=== PATIENT | male | born 1940 | race Caucasian/White ===

== ENCOUNTER 2017-01-27 21:28 | Emergency (ER) | payer OTHER ==
[~2017-01-27] VITALS: Ht 165.1 cm; Wt 85.0 kg
[~2017-01-27 21:28] MED LIST: ACET-1256 PO; ASCO10003 PO; ASPCH81 PO; ATOR-24 PO; CNT PO; FINA5TAB PO; FLUT0.15; NF34 TOP; ONDA4TAB7 SL; TERA1CAP63 PO
[2017-01-27 21:33] VITALS: TEMP 36.8; Ht 165.1 cm; Wt 85.0 kg
[2017-01-27] MEDS ORDERED: ONDANSETRON INJ 2 MG/ML 2 ML VIAL IV STA (21:46)
--- NOTE | 2017-01-27 21:49 | EMERGENCY ROOM VISIT NOTE ---
History Report prepared by Angélica: Ger Lucio Under the Supervision of: Dr. Burton Dillard D.O. First contact with patient: 21:40 Chief Complaint: DIZZY Stated Complaint: DIZZINESS,VOMITING,NAUSEA History of Present Illness The patient is a 76 year old male who presents to the Emergency Room with complaints of intermittent dizziness for the past week and a half. The patient has also been feeling nauseous. His symptoms worsened yesterday. The patient has also had intermittent vomiting, which does relieve his symptoms. The dizziness is described as a room-spinning sensation, however he has had minimal relief with Meclizine. The patient denies any headaches, chest pain, or shortness of breath. He has hearing impairment at baseline. The patient notes that he was bitten by a tick two weeks ago. He went to urgent care and was started on Doxycycline which he has taken intermittently. The patient saw his PCP four days ago and was started on Meclizine. The patient notes that he has a history of CLL. Source of History: patient Onset: 1.5 weeks ago Position: other (global) Quality: other (dizziness) Timing: intermittent Modifying Factors (Relieving): other (vomiting) Associated Symptoms: + nausea, + vomiting, No SOB, No chest pain, No headache Review of Systems See HPI for pertinent positives and negatives. A total of ten systems were reviewed and were otherwise negative. Past Medical & Surgical Medical Problems: (1) CLL (chronic lymphocytic leukemia) (2) Heart valve stenosis (3) Loss of hearing (4) Pneumonia (5) Vertigo Surgical Problems: (1) History of appendectomy Family History Cancer Gallbladder disease Heart disease Lung disease Social History Smoking Status: Former Smoker Alcohol Use: none Drug Use: none Marital Status: Housing Status: lives with significant other Occupation Status: retired Current/Historical Medications Scheduled Ascorbic Acid (Vitamin C), 1,000 MG PO DAILY Aspirin (Aspirin Ec), 81 MG PO QPM Atorvastatin (Lipitor), 40 MG PO QPM Azelastine Hcl (Astepro), 2 SPRY DONTAE HS Clobetasol Propionate (Clobetasol Propionate), 1 APPLN TOP BID Finasteride (Proscar), 5 MG PO QAM Fluticasone Propionate (Nasal) (Flonase Allergy Relief), 100 MCG NA DAILY Multiple Vitamins W/ Minerals (Centrum Silver Adult 50+), 1 TAB PO DAILY Terazosin Hcl (Hytrin), 10 MG PO QPM Scheduled PRN Acetaminophen/Diphenhydramine (Tylenol Pm), 1 TAB PO HS PRN for Pain Albuterol Sulfate (Proventil Hfa), 2 PUFFS INH QID PRN for Shortness of Breath Ketoconazole (Topical) (Ketoconazole), 1 APPLN TOP 2XWK PRN for RASH Saline (Saline Nasal [place]), 1 SPRAY DONTAE BID PRN for NASAL DRYNESS Allergies Coded Allergies: Niacin (Unverified Allergy, Unknown, RASH/FLUSHING, 01/27/17) Pseudoephedrine (Verified Adverse Reaction, Unknown, URINARY RETENTION, 11/03) Physical Exam Vital Signs Date Time Temp Pulse Resp B/P Pulse Ox O2 Delivery O2 Flow Rate FiO2 01/27/17 22:52 62 18 131/63 95 Room Air 01/27/17 21:58 58 125/70 61 125/66 01/27/17 21:52 56 01/27/17 21:33 36.8 60 20 135/71 96 Room Air Physical Exam GENERAL: Awake, alert, well-appearing, in no distress HENT: Normocephalic, atraumatic. Oropharynx unremarkable. EYES: Normal conjunctiva. Sclera non-icteric. NECK: Supple. No nuchal rigidity. FROM. No JVD. RESPIRATORY: Clear to auscultation. CARDIAC: Regular rate, normal rhythm. Extremities warm and well perfused. Pulses equal. ABDOMEN: Soft, non-distended. No tenderness to palpation. No rebound or guarding. No masses. RECTAL: Deferred. MUSCULOSKELETAL: Chest examination reveals no tenderness. The back is symmetrical on inspection without obvious abnormality. There is no CVA tenderness to palpation. No joint edema. LOWER EXTREMITIES: Calves are equal size bilaterally and non-tender. No edema. No discoloration. NEURO: Normal sensorium. No sensory or motor deficits noted. SKIN: There is a punctate lesion with erythema that is less than dime size in the right groin area. Medical Decision & Procedures ER Provider Diagnostic Interpretation: Radiology results as stated below per my review and radiologist interpretation CT SCAN OF THE BRAIN WITHOUT IV CONTRAST CLINICAL HISTORY: Dizziness. COMPARISON STUDY: CT of the brain dated 07/24/2015. TECHNIQUE: Unenhanced axial CT scan of the brain is performed from the vertex to the skull base. CT DOSE: 614.27 mGy.cm FINDINGS: Brain parenchyma: There are age-related involutional changes noting mild subcortical and periventricular microangiopathic change. There is no hemorrhage, mass effect, or evidence of acute territorial ischemia by CT criteria. Caceres-white matter is preserved. No extra-axial fluid collection is seen. Ventricles, sulci, cisterns: Prominent secondary to involutional change. Intracranial vasculature: There is atherosclerotic calcification of the cavernous carotid arteries. Calvarium: Unremarkable. Sinuses and mastoids: Trace mucosal thickening is seen within the maxillary antra and ethmoid sinuses. The remaining paranasal sinuses are clear. The mastoid air cells are well pneumatized. Orbits: The bony orbits are grossly intact. IMPRESSION: There is no hemorrhage, mass effect, or evidence of acute territorial ischemia by CT criteria. Electronically signed by: Narciso Delgadillo M.D. 01/27/2017 10:16 PM Dictated Date/Time: 01/27/2017 10:14 PM Laboratory Results 01/27/17 21:50 Red Blood Count 5.09, Mean Corpuscular Volume 82.9, Mean Corpuscular Hemoglobin 28.9, Mean Corpuscular Hemoglobin Concent 34.8, Mean Platelet Volume 9.0 01/27/17 21:50 Test 01/27/17 21:50 01/27/17 21:52 01/27/17 22:55 White Blood Count 32.01 K/uL (4.8-10.8) Red Blood Count 5.09 M/uL (4.7-6.1) Hemoglobin 14.7 g/dL (14.0-18.0) Hematocrit 42.2 % (42-52) Mean Corpuscular Volume 82.9 fL (80-100) Mean Corpuscular Hemoglobin 28.9 pg (25-34) Mean Corpuscular Hemoglobin Concent 34.8 g/dl (32-36) Platelet Count 135 K/uL (130-400) Mean Platelet Volume 9.0 fL (7.4-10.4) RDW Standard Deviation 41.0 fL (36.4-46.3) RDW Coefficient of Variation 13.5 % (11.5-14.5) Neutrophils % (Manual) 19.3 % Lymphocytes % (Manual) 56.9 % Variant Lymphocytes % (manual) 20.2 % Eosinophils % (Manual) 1.8 % Basophils % (Manual) 0.9 % (0-2) Myelocytes % 0.9 % Neutrophils # (Manual) 6.18 K/uL (1.4-6.5) Total Absolute Neutrophils 6.18 K/uL (1.4-6.5) Lymphocytes # (Manual) 18.21 K/uL (1.2-3.4) Absolute Variant Lymphocytes 6.47 K/uL Total Absolute Lymphocytes 24.68 K/uL (1.2-3.4) Eosinophils # (Manual) 0.58 K/uL (0-0.5) Basophils # (Manual) 0.29 K/uL (0-0.2) Myelocytes # 0.29 K/uL (0-0) Smudge Cells PRESENT Anion Gap 10.0 mmol/L (3-11) Est Creatinine Clear Calc Drug Dose 66.4 ml/min Estimated GFR () 92.0 Estimated GFR (Non- 79.4 BUN/Creatinine Ratio 11.4 (10-20) Calcium Level 8.8 mg/dl (8.5-10.1) Total Bilirubin 0.9 mg/dl (0.2-1) Direct Bilirubin 0.2 mg/dl (0-0.2) Aspartate Amino Transf (AST/SGOT) 15 U/L (15-37) Alanine Aminotransferase (ALT/SGPT) 24 U/L (12-78) Alkaline Phosphatase 92 U/L (45-117) Total Protein 7.0 gm/dl (6.4-8.2) Albumin 3.7 gm/dl (3.4-5.0) Thyroid Stimulating Hormone (TSH) 2.030 uIu/ml (0.300-4.500) Bedside Glucose 100 mg/dl (70-99) Bedside Troponin I 0.000 ng/ml (0-0.045) Urine Color YELLOW Urine Appearance CLEAR (CLEAR) Urine pH 5.0 (4.5-7.5) Urine Specific [place] 1.014 (1.000-1.030) Urine Protein NEG (NEG) Urine Glucose (UA) NEG (NEG) Urine Ketones NEG (NEG) Urine Occult Blood NEG (NEG) Urine Nitrite NEG (NEG) Urine Bilirubin NEG (NEG) Urine Urobilinogen NEG (NEG) Urine Leukocyte Esterase NEG (NEG) Laboratory results reviewed by me Medications Administered Medications (Trade) Dose Ordered Sig/Tyrel Route Start Time Stop Time Status Last Admin Dose Admin Ondansetron HCl (Zofran Inj) 4 mg NOW STAT IV 01/27/17 21:46 01/27/17 21:50 DC 01/27/17 21:56 4 MG ECG Indication: other (dizziness) Rate (beats per minute): 56 Rhythm: sinus bradycardia Findings: RBBB, no acute ischemic change, left axis deviation, other (left anterior hemiblock) ED Course 0945: The patient was evaluated in room C1b. A complete history and physical exam was performed. 2145: Zofran 4 mg IV. 2242: Checked in with the patient. Discussed his previous tick bite and history of CLL. 2309: Reassessed the patient. Discussed the discharge instructions with him. He verbalized understanding and agreements of the treatment plan. The patient is ready for discharge. Medical Decision Etiologies such as benign positional vertigo, tumor, infection, hypoglycemia, electrolyte abnormalities, cardiac sources, intracerebral event, toxicologic, neurologic, as well as others were entertained. Patient has a history of CLL, I expect the white blood cell count is elevated to the CLL. Reevaluated dissed tick bite region in the right groin it does not appear to be infected at this time. There is still a concern for tick borne illness. However this patient has a history of Mnire's disease and vertigo was on meclizine. Patient's lab work except for an elevated white blood cell count is normal his CAT scan is negative. Reassessment of the patient at 2318 the patient is resting in no distress nonfocal like to go home. I discussed the workup the patient patient's family at bedside. Impression Primary Impression: Dizziness Scribe Attestation The scribe's documentation has been prepared under my direction and personally reviewed by me in its entirety. I confirm that the note above accurately reflects all work, treatment, procedures, and medical decision making performed by me. Departure Information Dispostion Home / Self-Care Referrals Divya Bernabe M.D. (PCP) Forms HOME CARE DOCUMENTATION FORM, IMPORTANT VISIT INFORMATION Patient Instructions ED Dizziness Marlena PUGA [facility]
[2017-01-27] MEDS ORDERED: MULT-845 PO (22:09)
[2017-01-27] MEDS ORDERED: ASPI81TA28 PO (22:09)
[2017-01-27] MEDS ORDERED: DIPH-437 PO (22:09)
[2017-01-27] MEDS ORDERED: SALI1SPR3 NAE (22:09)
[2017-01-27] MEDS ORDERED: ALBUAER INH (22:09)
[2017-01-27] MEDS ORDERED: KETO2SHA TOP (22:09)
[2017-01-27] MEDS ORDERED: AZEL0.15 NAE (22:09)
[2017-01-27 22:16] LABS: HEMATOCRIT 42.2 % (42-52); MEAN CELL VOLUME 82.9 fL (80-100); MEAN CORPUSCULAR HEMOGLOBIN 28.9 pg (25-34); MEAN CORPUSCULAR HGB CONC 34.8 g/dl (32-36); PLATELET COUNT 135 K/uL (130-400); RED BLOOD COUNT 5.09 M/uL (4.7-6.1); WHITE BLOOD COUNT 32.01 K/uL (4.8-10.8)
--- NOTE | 2017-01-27 22:17 | DIAGNOSTIC IMAGING REPORT ---
CT SCAN OF THE BRAIN WITHOUT IV CONTRAST CLINICAL HISTORY: Dizziness. COMPARISON STUDY: CT of the brain dated 07/24/2015. TECHNIQUE: Unenhanced axial CT scan of the brain is performed from the vertex to the skull base. CT DOSE: 614.27 mGy.cm FINDINGS: Brain parenchyma: There are age-related involutional changes noting mild subcortical and periventricular microangiopathic change. There is no hemorrhage, mass effect, or evidence of acute territorial ischemia by CT criteria. Caceres-white matter is preserved. No extra-axial fluid collection is seen. Ventricles, sulci, cisterns: Prominent secondary to involutional change. Intracranial vasculature: There is atherosclerotic calcification of the cavernous carotid arteries. Calvarium: Unremarkable. Sinuses and mastoids: Trace mucosal thickening is seen within the maxillary antra and ethmoid sinuses. The remaining paranasal sinuses are clear. The mastoid air cells are well pneumatized. Orbits: The bony orbits are grossly intact. IMPRESSION: There is no hemorrhage, mass effect, or evidence of acute territorial ischemia by CT criteria. Electronically signed by: Narciso Delgadillo M.D. 01/27/2017 10:16 PM Dictated Date/Time: 01/27/2017 10:14 PM
[2017-01-27 22:25] LABS: BUN/CREATININE RATIO 11.4 (10-20); CALCIUM 8.8 mg/dl (8.5-10.1); CREATININE 0.92 mg/dl (0.60-1.40); POTASSIUM 4.2 mmol/L (3.5-5.1)
[2017-01-27 22:36] LABS: THYROID STIMULATING HORMONE 2.03 uIu/ml (0.300-4.500)
[2017-01-27 22:59] LABS: BASO ABS # 0.29 K/uL (0-0.2); BASOPHIL % 0.9 % (0-2); EOSINOPHIL % 1.8 %; LYMPH ABS # 18.21 K/uL (1.2-3.4); LYMPHOCYTE % 56.9 %; MYELOCYTE % 0.9 %; NEUTROPHILS % 19.3 %; SMUDGE CELLS PRESENT; VARIANT LYM ABS # 6.47 K/uL; VARIANT LYMPHOCYTE % 20.2 %
[2017-01-27 23:05] LABS: URINE APPEARANCE CLEAR (CLEAR); URINE BILIRUBIN NEG (NEG); URINE COLOR YELLOW; URINE NITRITE NEG (NEG); URINE SPECIFIC GRAVITY 1.014 (1.000-1.030); UROBILINOGEN NEG (NEG)
[2017-01-27 23:07] LABS: MANUAL MICROSCOPIC REQUIRED? NO; REVIEW REQ? NO
[2017-01-27] MEDS ORDERED: ONDA4TAB10 SL (23:34)
[2017-01-27 23:38] VITALS: BP 122/66; PULSE 66; O2SAT 94
[2017-01-28 20:03] LABS: COMPLETE YES
== END 2017-01-27 23:38 | disposition home or self-care (01) ==
LOC: C.EDB 21:30 → C.EDC 23:38
DX: R42 Dizziness and giddiness (principal); R11.2 Nausea with vomiting, unspecified; I45.10 Unspecified right bundle-branch block; Z79.82 Long term (current) use of aspirin; Z79.899 Other long term (current) drug therapy; Z85.6 Personal history of leukemia; Z87.01 Personal history of pneumonia (recurrent); Z87.891 Personal history of nicotine dependence; Z82.49 Family history of ischemic heart disease and other diseases of the circulatory system; Z83.6 Family history of other diseases of the respiratory system; Z83.79 Family history of other diseases of the digestive system

== ENCOUNTER 2019-12-14 07:27 | Inpatient (IN) ==
--- NOTE | 2019-12-02 16:09 | PAT Medication Instructions ---
Medication Instructions Date of Service December 02, 2019 Home Medications ascorbic acid (vitamin C) [Vitamin C] 500 mg PO QAM atorvastatin 20 mg PO PM diphenhydramine-acetaminophen [Tylenol PM Extra Strength] 1 tab PO HS PRN diphenhydramine-zinc acetate [Benadryl Itch Stopping] 1 applic TOPICAL QID PRN finasteride 5 mg PO QAM fluticasone furoate 50 mcg INHALATION UD ketoconazole 1 applic TOPICAL DAILY PRN [id number] acid-lutein [Centrum Silver] 1 tab PO QDL omeprazole 20 mg PO QAM terazosin 10 mg PO DAILY Continue as directed diphenhydramine-zinc acetate [Benadryl Itch Stopping] 1 applic TOPICAL QID PRN (if needed) STOP taking 24 hours before surgery ketoconazole 1 applic TOPICAL DAILY PRN DO NOT take the morning of surgery ascorbic acid (vitamin C) [Vitamin C] 500 mg PO QAM diphenhydramine-acetaminophen [Tylenol PM Extra Strength] 1 tab PO HS PRN [id number] acid-lutein [Centrum Silver] 1 tab PO QDL Take morning of surgery With a small sip of water, OTHERWISE NOTHING TO EAT OR DRINK AFTER MIDNIGHT: finasteride 5 mg PO QAM fluticasone furoate 50 mcg INHALATION UD omeprazole 20 mg PO QAM terazosin 10 mg PO DAILY Take evening before surgery atorvastatin 20 mg PO PM diphenhydramine-acetaminophen [Tylenol PM Extra Strength] 1 tab PO HS PRN (if needed) diphenhydramine-zinc acetate [Benadryl Itch Stopping] 1 applic TOPICAL QID PRN (if needed) fluticasone furoate 50 mcg INHALATION UD Other Notes If you have any questions please call us at [phone] or [phone] or [phone] or [phone]
--- NOTE | 2019-12-03 11:04 | Anesthesiology Consultation ---
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 WBC in the 70-90 range per chart view. "Continue to observe the patient clinically." - Cardiology: 03/09/20: "The patient's aortic valve stenosis is clinically stable. I recommend a repeat echocardiogram at a 1 year interval. In addition to the right bundle branch block pattern, he now has a bifascicular block pattern. He has no symptoms to suggest bradycardia. At this time I think we can just observe him regarding his asymptomatic conduction system disease." F/U one year recommended. Chart Review Chart Review: Acceptable Risk for Surgery and Patient seen in Pre Admission Testing Teaching & Discussion Pre-Anesthesia Teaching/Discussion Notes: Instructed NPO after midnight before surgery,except medications with 15 cc of water. Medication instructions provided according to the PAT guidelines. History Surgery Operation Date: 12/14/19 11:45 Proposed Procedures p L4-L5 Decompression and Fusion, Spinal Cord Monitoring - Jordy Prasad DO Height/Weight Height: 5 ft 5 in Weight: 81.9 kg Allergies Allergy/AdvReac Type Severity Reaction Status Date / Time niacin Allergy Unknown RASH/FLUSHI Unverified 12/01/19 08:06 NG pseudoephedrine AdvReac Unknown URINARY Verified 12/01/19 08:06 RETENTION Medications Home Medications Medication Instructions Recorded Confirmed Last Taken ascorbic acid (vitamin C) [Vitamin 500 mg PO QAM 12/01/19 12/01/19 Unknown C] atorvastatin 20 mg PO PM 12/01/19 12/01/19 Unknown diphenhydramine-acetaminophen 1 tab PO HS PRN 12/01/19 12/01/19 Unknown [Tylenol PM Extra Strength] diphenhydramine-zinc acetate 1 applic TOPICAL QID PRN 12/01/19 12/01/19 Unknown [Benadryl Itch Stopping] finasteride 5 mg PO QAM 12/01/19 12/01/19 Unknown fluticasone furoate 50 mcg INHALATION UD 12/01/19 12/01/19 Unknown ketoconazole 1 applic TOPICAL DAILY PRN 12/01/19 12/01/19 Unknown [id number]-[id number] acid-lutein [Centrum 1 tab PO QDL 12/01/19 12/01/19 Unknown Silver] omeprazole 20 mg PO QAM 12/01/19 12/01/19 Unknown terazosin 10 mg PO DAILY 12/01/19 12/01/19 Unknown Past Medical History Medical History Aortic stenosis "Mild" per 02/2019 ECHO report but values as follows: BALTAZAR 1.1cm2, MG 12.8mmhg Bifascicular block cardiology monitoring BPH (benign prostatic hyperplasia) Carotid artery stenosis CLL (chronic lymphocytic leukemia) under surveillance by oncology ([facility])/WBC in the 70-90 range per chart review GERD (gastroesophageal reflux disease) controlled Hearing deficit BL [place] Hyperlipidemia Exercise / Class Metabolic Activity II 4-5 Yardwork/Stairs/Walk up hill (one flight of stairs (no chest pain/no sob)) Past Family History Family History Father Family hx of colon cancer Past Surgical History Surgical History History of appendectomy History of colonoscopy History of esophagogastroduodenoscopy (EGD) History of tooth extraction Past Anesthesia History No Hx of Anesthesia Complications and No Family Hx of Anesthesia Complications History of PONV No Hx of PONV and Hx of Motion Sickness (remote hx) Social History Smoking Status: Never smoker Do You Dip or Chew Tobacco: No Hx Alcohol Use: Yes Alcohol type: wine alcohol intake frequency: holidays/special occasions only Hx Substance Use: No substance use type: does not use Review of Systems Controlled reflux. Patient denies chest pain, shortness of breath, cough, wheezing, palpitations. Physical Exam Vital Signs VITALS BP 124/67 P 65 TEMP 97.6 SP02 96%RA RESP 18 PHYSICAL Full neck and c-spine range of motion. Full TMJ range of motion. TMD 3.5 finger breaths Mallampati Score 3 Dentition: missing upper left side, upper left front implant, several crowns Lungs: clear throughout to auscultation Cardiac: regular rate and rhythm, III/ systolic murmur with carotid radiation Spine: normal Extremities: no edema Trimmed [facility] Testing Laboratory Results 12/03/19 11:20 12/03/19 11:20 PT 11.1 Seconds (9.0-12.0) 12/03/19 11:20 INR 1.1 (0.9-1.1) 12/03/19 11:20 APTT 24.8 Seconds (21.0-31.0) 12/03/19 11:20 Urine Color Yellow 12/03/19 Unknown Urine Appearance Clear (Clear) 12/03/19 Unknown Urine pH 7.0 (4.5-7.5) 12/03/19 Unknown Ur Specific [place] 1.021 (1.000-1.030) 12/03/19 Unknown Urine Protein Negative (Negative) 12/03/19 Unknown Urine Glucose (UA) Negative (Negative) 12/03/19 Unknown Urine Ketones Negative (Negative) 12/03/19 Unknown Urine Nitrite Negative (Negative) 12/03/19 Unknown Ur Leukocyte Esterase Negative (Negative) 12/03/19 Unknown Blood Type AB Positive 12/03/19 11:20 Antibody Screen NEGATIVE 12/03/19 11:20 *Hx CLL WBC in the 70-90 range per chart review (within baseline range on preop labs). Surgeon office made aware of WBC and platelets (mildly low-- in the 130 range per most recent oncology note)* Electrocardiogram Date: 03/09/19 NSR. RBBB. LAFB. *Bifascicular block* Moderate voltage criteria for LVH, may be normal variant. Chest X-Ray Date: 12/03/19 Trace left pleural scarring/effusion, unchanged from 2012. No acute findings. Echocardiogram Date: 03/02/19 LVEF 63%. No RWMA. Mildly increased cLV wall thickness. Grade II DD. Mild TR. Mild TR. Estimated PASP 32mmhg. Moderately calcified AV. Mild aortic stenosis ("Mild" per report but values as follows: BALTAZAR 1.1cm2, MG 12.8mmhg). Other Testing Carotid duplex: 03/27/19: B/L antegrade flow. B/L < 50% ICA stenosis.
--- NOTE | 2019-12-03 11:48 | XRay Report ---
XR chest Pre-admission PA/Lat CLINICAL HISTORY: Preoperative chest COMPARISON STUDY: 07/24/2015 FINDINGS: The heart is the upper limits of normal in size. There is no failure. There is no focal pul monary consolidation. There is blunting of one posterior costophrenic angle suggesting a trace pleura l effusion/scarring. This is likely left-sided. This remains unchanged from the prior February 2012 stud y. Degenerative changes are present within the cervical spine. IMPRESSION: 1. Trace left pleural scarring/effusion, unchanged from 2012. No acute findings. ACT 112: Negative or not required by law. Electronically signed by: Thai Coello M.D. 12/03/2019 11:46 AM
[2019-12-03 12:05] LABS: Hematocrit (blood only) 39.6 % (42-52); Hemoglobin 12.8 g/dL (14.0-18.0); Mean Corpuscular Hemoglobin 28.6 pg (25-34); Mean Corpuscular Hgb Conc 32.3 g/dL (32-36); Mean Corpuscular Volume 88.6 fL (80-100); Mean Platelet Volume 9.4 fL (7.4-10.4); Platelet Count 118 K/uL (130-400); RDW Coefficient of Variation 14.4 % (11.5-14.5); RDW Standard Deviation 46.2 fL (36.4-46.3); Red Blood Count 4.47 M/uL (4.7-6.1); White Blood Count 85.84 K/uL (4.8-10.8)
[2019-12-03 12:11] LABS: INR 1.1 (0.9-1.1); Partial Thromboplastin Ratio 0.9; Partial Thromboplastin Time 24.8 Seconds (21.0-31.0); Prothrombin Time 11.1 Seconds (9.0-12.0)
[2019-12-03 12:14] LABS: Appearance Urine Clear (Clear); Bilirubin Urine Negative (Negative); Blood Urine Negative (Negative); Color Urine Yellow; Glucose Urine UA Negative (Negative); Ketones Urine Negative (Negative); Leukocyte Esterase Urine Negative (Negative); Nitrite Urine Negative (Negative); Protein Urine Negative (Negative); Specific Gravity Urine 1.021 (1.000-1.030); Urobilinogen Urine Negative (Negative)
[2019-12-03 12:18] LABS: BUN Creatinine Ratio 15.9 (10-20); Calcium 8.9 mg/dl (8.5-10.1); Creatinine Clr Calc Pharmacy 56.5 ml/min; Est GFR (African American) 80.5; Est GFR (Non-African American) 69.4; Potassium 4.6 mmol/L (3.5-5.1)
[2019-12-03 12:31] LABS: ALC (manual) 78.29 K/uL (1.2-3.4); ANC (manual) 3.78 K/uL (1.4-6.5); Eosinophils # (manual) 0.77 K/uL (0-0.5); Eosinophils % (manual) 0.9 %; Lymphocytes # (manual) 78.29 K/uL (1.2-3.4); Lymphocytes % (manual) 91.2 %; Monocytes % (manual) 3.5 %; Neutrophils # (manual) 3.78 K/uL (1.4-6.5); Neutrophils % (manual) 4.4 %; Smudge Cells Present
[~2019-12-14 07:27] MED LIST changes: -ACET-1256 PO; +ACETAMINOPHEN 500 MG TAB PO SCH; -ASCO10003 PO; -ASPCH81 PO; -ATOR-24 PO; +CEFAZOLIN 2000MG 2,000 MG/15 ML SYR IV SCH; -CNT PO; +CeleBREX 200 MG CAP PO SCH; -FINA5TAB PO; -FLUT0.15; +LR 15ML/HR IV SCH; -NF34 TOP; -ONDA4TAB7 SL; -TERA1CAP63 PO
[2019-12-14] MEDS ORDERED: DEXAMETHASONE SOD INJ 4 MG/ML VIAL ONE (08:24)
[2019-12-14] MEDS ORDERED: LIDOCAINE HCL 2% 2 ML VIAL/AMP(20MG/ML) INFIL ONE (08:24)
[2019-12-14] MEDS ORDERED: fentaNYL citrate 100 MCG/2 ML VIAL ONE (08:24)
[2019-12-14] MEDS ORDERED: ROCURONIUM BROMIDE 10 MG/ML 5 ML VIAL ONE (08:24)
[2019-12-14] MEDS ORDERED: HYDROmorphone INJ 2 MG/ML SYR/VIAL ONE (08:24)
[2019-12-14] MEDS ORDERED: PROPOFOL IV EMULSION 10 MG/ML 20 ML VIAL IV ONE (08:24)
[2019-12-14] MEDS ORDERED: NEOSTIGMINE METHYLSULFATE 1 MG/ML 10ML VIAL ONE (08:24)
[2019-12-14] MEDS ORDERED: GLYCOPYRROLATE 0.2 MG/ML VIAL ONE (08:24)
[2019-12-14] MEDS ORDERED: ONDANSETRON INJ 2 MG/ML 2 ML VIAL ONE (08:24)
[2019-12-14] MEDS ORDERED: ONDANSETRON INJ 2 MG/ML 2 ML VIAL IV PRN ×2 (08:43→12:29)
[2019-12-14] MEDS ORDERED: LABETALOL HCL IV 5 MG/ML 20ML IV PRN (08:43)
[2019-12-14] MEDS ORDERED: HYDROmorphone INJ 1 MG/ML SYRINGE IV PRN ×2 (08:43→12:29)
[2019-12-14] MEDS ORDERED: ATROPINE SULFATE 0.1 MG/ML 10ML SYR IV PRN (08:43)
--- NOTE | 2019-12-14 09:05 | History & Physical Bridge Note ---
Date of Service December 14, 2019 History & Physical Bridge Note I have examined the patient, reviewed the History & Physical and in the interval since the performance of the History & Physical I have noted the following changes of clinical significance: no changes noted
--- NOTE | 2019-12-14 09:06 | History & Physical Report ---
Date of Service December 14, 2019 Assessment & Plan (1) Neurogenic claudication due to lumbar spinal stenosis: L4-L5 decompression fusion Present on Admission?: Yes History of Present Illness Chief Complaint: Back and leg pain Primary Care Provider: Alex Melchor, DO This is an 79-year-old male presents with worsening back and leg pain after failing a course of nonoperative care is here for surgical intervention. Allergies Allergy/AdvReac Type Severity Reaction Status Date / Time niacin Allergy Unknown RASH/FLUSHI Verified 12/14/19 08:49 NG pseudoephedrine AdvReac Unknown URINARY Verified 12/14/19 08:49 RETENTION Home Medications Home Medications Medication Instructions Recorded Confirmed Type ascorbic acid (vitamin C) [Vitamin 500 mg PO QAM 12/01/19 12/14/19 History C] atorvastatin 20 mg PO PM 12/01/19 12/14/19 History diphenhydramine-acetaminophen 1 tab PO HS PRN 12/01/19 12/14/19 History [Tylenol PM Extra Strength] diphenhydramine-zinc acetate 1 applic TOPICAL QID PRN 12/01/19 12/14/19 History [Benadryl Itch Stopping] finasteride 5 mg PO QAM 12/01/19 12/14/19 History ketoconazole 1 applic TOPICAL DAILY PRN 12/01/19 12/14/19 History [id number] acid-lutein [Centrum 1 tab PO QDL 12/01/19 12/14/19 History Silver] omeprazole 20 mg PO QAM 12/01/19 12/14/19 History terazosin 10 mg PO DAILY 12/01/19 12/14/19 History fluticasone propionate [Flonase 2 spray INTRANASAL DAILY 12/14/19 12/14/19 History Allergy Relief] Past Med/Surg History Medical History Aortic stenosis "Mild" per 02/2019 ECHO report but values as follows: BALTAZAR 1.1cm2, MG 12.8mmhg Bifascicular block cardiology monitoring BPH (benign prostatic hyperplasia) Carotid artery stenosis CLL (chronic lymphocytic leukemia) under surveillance by oncology ([facility])/WBC in the 70-90 range per chart review GERD (gastroesophageal reflux disease) controlled Hearing deficit BL [place] Hyperlipidemia Surgical History History of appendectomy History of colonoscopy History of esophagogastroduodenoscopy (EGD) History of tooth extraction Family History Father Family hx of colon cancer Social History Preferred Language: Arabic Communication Ability: Effective Final Rail Cutter Required: No Beliefs That Will Affect Care: None Current Living Situation: Spouse Current Living Situation Comment: lives with and dtr Other Information That Helps Us Care for You: No Feels Safe at Home: Yes Safety Concerns: Feels Safe At This Time Smoking Status: Never smoker Do You Dip or Chew Tobacco: No ; Second Hand Exposure: No ; Hx Alcohol Use: Yes Alcohol type: wine Hx Substance Use: No Physical Exam Physical Exam: Patient is alert and oriented neurologically intact. Results & Data Vital Signs (Past 12 Hours) Vital Signs Temp Pulse Resp BP Pulse Ox 12/14/19 08:03 36.7 C 68 20 126/66 95
[2019-12-14] MEDS ORDERED: BACITRACIN INJ 50,000 UNIT VIAL ONE (09:13)
[2019-12-14] MEDS ORDERED: BUPIVACAINE 0.5 % 5 MG/1 ML MPF 30ML VIAL ONE (09:13)
[2019-12-14] MEDS ORDERED: BUPIVACAINE/EPINEPHRINE 0.5% MPF 1:200,000 10 ML VIAL ONE (09:16)
[2019-12-14] MEDS ORDERED: PHENYLEPHRINE 100MCG/ML 5ML SYR ONE (10:00)
[2019-12-14] MEDS ORDERED: ePHEDrine sulfate 50 MG/ML AMP ONE (10:00)
[2019-12-14] MEDS ORDERED: FLOSEAL HEMOSTATIC MATRIX 10ML TOP ONE (10:14)
--- NOTE | 2019-12-14 11:15 | Operative Report ---
Post Operative Report Pre & Post Diagnosis Operation Date: 12/14/19 09:35 Pre-Op Diagnosis: LUMBAR SPINAL STENOSIS W/NEUROGENIC CLAUDICATION Post-Op Diagnosis: LUMBAR SPINAL STENOSIS W/NEUROGENIC CLAUDICATION I identified the patient and participated in the time-out.: Yes Procedure Operation Date: 12/14/19 09:35 Actual Procedures #1 lumbar decompression with bilateral medial facetectomies foraminotomies L3-4 L4-5. #2 posterior spinal fusion L4-5. #3 placed posterior instrumentation L4- 5. #4 interbody fusion L4-5. #5 placed a peek cage 13 x 26 mm at L4-5. #6 placement of locally harvested morselized autograft in the posterior gutters. #7 placement infuse collagen sponge by mass graft in the posterior lateral gutters and ostial amp and interbody space. Surgeon Jordy Prasad, Die Cast Technician Nini Li Estimated Blood Loss 50 Findings Consistent with Post-Op Diagnosis Specimens None Indications This is an 79-year-old male who presents with above-mentioned diagnosis after failing extensive course of nonoperative care is here for surgical intervention. Description of Procedure Patient was met with identified informed consent obtained. Patient was then taken to the operative suite underwent intubation placed in a prone position the Abhay table on top of the Philippe frame. All bony prominences well-padded eyes inspected to ensure no external pressure placed upon. This point the lumbar spine was prepped and draped in normal sterile fashion. Sharp dissection with the assistance of Bovie cautery performed down to and exposing the lamina and transverse processes of L4 and L5 from a caudal cephalad fashion complete laminectomy of L4 partial laminectomy of L3 was performed including bilateral medial facetectomies and foraminotomies addressing all stenosis. This did include removal of facet cyst on the right. Pedicle screws were then placed in L4 and L5 bilaterally with assistance of fluoroscopy and appropriate size samuel placed. By way of a transforaminal portion right complete discectomy was performed endplates curetted to subcortical bleeding bone and a 13 x 26 mm peek cage filled with osteo-bone graft tapped in position. The rods were then compressed locked in final position bilaterally. The trans-processes of L 4 L5 bur to subcortical bleeding bone. Infuse collagen sponge master graft local autograft placed in the posterior lateral gutters. 15 round BRIDGER drain inserted. Incision was then closed with 1 Vicryl fascia 2-0 Vicryl subcutaneously and 4 Monocryl for final closure. Steri-Strips dressings placed. Patient will continue PACU stable addition. Please note Nini Li present at the entire procedure involved the patient positioning complex portions of the surgery and final skin closure. Lastly spinal cord monitoring was utilized throughout the procedure no changes noted. I attest to the content of the Intraoperative Record and any orders documented therein. Any exceptions are noted below.
--- NOTE | 2019-12-14 11:29 | Fluoroscopy Report ---
FL lumbar spine 2-3V CLINICAL HISTORY: L4-L5 DECOMPRESSION AND FUSION COMPARISON STUDY: None FLUOROSCOPY TIME: 18 seconds. NUMBER OF FLUOROSCOPIC IMAGES: 2 FINDINGS: 2 intraoperative fluoroscopic spot images demonstrate postsurgical changes of an L4-5 disce ctomy and interbody fusion and posterior pedicle screw fixation. IMPRESSION: Postsurgical changes of an L4-5 decompression and fusion. ACT 112: Negative or not required by law. Electronically signed by: Thai Coello M.D. 12/14/2019 11:28 AM
[2019-12-14] MEDS ORDERED: ALUMINUM/MAGNESIUM SUSP 30 ML UDC PO PRN (12:29)
[2019-12-14] MEDS ORDERED: NALOXONE HCL 0.4 MG/1 ML VIAL/CARP IV PRN (12:29)
[2019-12-14] MEDS ORDERED: bisacodyL 10 MG SUPP PR PRN (12:29)
[2019-12-14] MEDS ORDERED: DO NOT ADMINISTER FLU VACCINE PRN (12:29)
[2019-12-14] MEDS ORDERED: ACETAMINOPHEN 1,000 MG/100 ML VIAL IV PRN (12:29)
[2019-12-14] MEDS ORDERED: TRAMADOL HCL 50 MG TABLET PO PRN (12:29)
[2019-12-14] MEDS ORDERED: LORazepam 0.5 MG TAB PO PRN (12:29)
[2019-12-14] MEDS ORDERED: ACETAMINOPHEN 500 MG TAB PO PRN ×2 (12:29→13:45)
[2019-12-14] MEDS ORDERED: METOCLOPRAMIDE HCL INJ 5 MG/ML 2 ML VIAL IV PRN (12:29)
[2019-12-14] MEDS ORDERED: FAMOTIDINE 20 MG TAB PO PRN (12:29)
[2019-12-14] MEDS ORDERED: SOD PHOSPHATE/SOD BIPHOSPHATE ENEMA 132 ML BTL PR PRN (12:29)
[2019-12-14] MEDS ORDERED: ONDANSETRON 4 MG OD TAB PO PRN (12:29)
[2019-12-14] MEDS ORDERED: MAGNESIUM HYDROXIDE SUSP 30 ML UDC PO PRN (12:29)
[2019-12-14] MEDS ORDERED: PROMETHAZINE HCL 12.5 MG in SODIUM CHLORIDE 0.9% 50 ML IV PRN (12:29)
[2019-12-14] MEDS ORDERED: LORazepam 0.5 MG/1 ML VIAL IV PRN (12:29)
[2019-12-14] MEDS ORDERED: DO NOT ADMINISTER PNEUMOCOCCAL VACCINE PRN (12:29)
[2019-12-14] MEDS ORDERED: HYDROmorphone INJ 0.5 MG/0.5 ML SYR IV PRN (12:29)
--- NOTE | 2019-12-14 12:43 | Anesthesiology Progress Note ---
Date of Service December 14, 2019 Anesthesia Post Procedure Vital Signs Vital Signs: Temp Pulse Pulse Pulse Resp BP Pulse Ox 12/14/19 12:10 36.5 C 76 16 113/56 L 98 12/14/19 12:05 36.7 C 72 20 113/52 L 94 12/14/19 11:55 80 14 115/50 L 96 12/14/19 11:45 75 13 113/61 100 12/14/19 11:35 73 12 99/46 L 99 12/14/19 11:26 36.5 C 70 19 97/45 L 100 12/14/19 08:03 36.7 C 68 20 126/66 95 Pain Intensity Right Leg: Pain Intensity: 6 Bilateral Back: Pain Intensity: 0 Transfer of Care Handoff Completed per policy Notes Mental Status: alert / awake / arousable Patient Amnestic to Procedure: Yes Nausea / Vomiting: adequately controlled Pain: adequately controlled Airway Patency, RR, SpO2: stable & adequate BP & HR: stable & adequate Hydration State: stable & adequate Anesthetic Complications: no major complications apparent
[2019-12-14] MEDS: SODIUM CHLORIDE 0.9% 1000ML 1,000 ML IV SCH (14:24)
--- NOTE | 2019-12-14 16:02 | Hospitalist Consultation ---
Date of Consultation December 14, 2019 Assessment & Plan (1) Neurogenic claudication due to lumbar spinal stenosis: - POD#0 L4-L5 decompression and fusion by Dr. Prasad - activity and wound care orders as per ortho - pain control with bowel regimen - PT/OT - monitor H/H for acute blood loss anemia and transfuse blood products PRN -EBL 50 cc (2) CLL (chronic lymphocytic leukemia): -Baseline WBC 70-90 K -Under surveillance, no active treatment -Follows with Dr. Dow (3) Aortic stenosis: -Mild per most recent echo -Monitor volume status closely (4) BPH (benign prostatic hyperplasia): -Continue finasteride and terazosin (5) GERD (gastroesophageal reflux disease): -Continue PPI (6) Hyperlipidemia: -Continue statin (7) DVT prophylaxis: -SCDs as per spine orthopedics Thank you for this consultation. We will follow the patient with you during their hospital stay. You can reach a member of the [facility] Team 10/06 via pager @ [phone]. Supervising Physician Co-Signing Physician Notes 79-year-old male with history of CLL, , BPH, GERD, hearing deficits who is status post L4-L5 decompression and fusion today by Dr. Prasad for lumbar spinal stenosis with neurogenic claudication. History and exam performed by me. Detailed history as documented by Rhea GARAY Patient is currently stable post op. Defer to Primary Surgical team for pain management Check Hb tomorrow PT eval Wean off oxygen Incentive spirometry Tolerating clear liquid now. Advance as tolerated Follow up with Dr Wan for CLL management outpatient Continue home medications SCD for DVT ppx for now. Ambulate once cleared by Surgeon Thank you the consult History of Present Illness Reason for Consultation: Postop medical management Requesting Physician: Dr. Prasad Attending Physician: Dr. Aguirre History of Present Illness 79-year-old male who is status post L4-L5 decompression and fusion today by Dr. Prasad. Postoperatively, the patient is doing well. He reports pain is well controlled. Denies any numbness or tingling to lower extremities. No chest pain or shortness of breath. Denies abdominal pain or nausea. No lightheadedness or dizziness. He has not voided since surgery. Allergies Allergy/AdvReac Type Severity Reaction Status Date / Time niacin Allergy Unknown RASH/FLUSHI Verified 12/14/19 08:49 NG pseudoephedrine AdvReac Unknown URINARY Verified 12/14/19 08:49 RETENTION Home Medications Home Medications Medication Instructions Recorded Confirmed Type ascorbic acid (vitamin C) [Vitamin 500 mg PO QAM 12/01/19 12/14/19 History C] atorvastatin 20 mg PO PM 12/01/19 12/14/19 History diphenhydramine-acetaminophen 1 tab PO HS PRN 12/01/19 12/14/19 History [Tylenol PM Extra Strength] diphenhydramine-zinc acetate 1 applic TOPICAL QID PRN 12/01/19 12/14/19 History [Benadryl Itch Stopping] finasteride 5 mg PO QAM 12/01/19 12/14/19 History ketoconazole 1 applic TOPICAL DAILY PRN 12/01/19 12/14/19 History [id number] acid-lutein [Centrum 1 tab PO QDL 12/01/19 12/14/19 History Silver] omeprazole 20 mg PO QAM 12/01/19 12/14/19 History terazosin 10 mg PO DAILY 12/01/19 12/14/19 History fluticasone propionate [Flonase 2 spray INTRANASAL DAILY 12/14/19 12/14/19 History Allergy Relief] Patient History Medical History Aortic stenosis "Mild" per 02/2019 ECHO report but values as follows: BALTAZAR 1.1cm2, MG 12.8mmhg BPH (benign prostatic hyperplasia) Carotid artery stenosis CLL (chronic lymphocytic leukemia) under surveillance by oncology (S)/WBC in the 70-90 range per chart review GERD (gastroesophageal reflux disease) controlled Hearing deficit BL [place] Hyperlipidemia RBBB Surgical History History of appendectomy History of colonoscopy History of esophagogastroduodenoscopy (EGD) History of tooth extraction Family History Father Family hx of colon cancer Social History Preferred Language: French Communication Ability: Effective Fur Finisher Required: No Beliefs That Will Affect Care: None Current Living Situation: Spouse Current Living Situation Comment: lives with and dtr Other Information That Helps Us Care for You: No Feels Safe at Home: Yes Safety Concerns: Feels Safe At This Time Smoking Status: Never smoker Do You Dip or Chew Tobacco: No ; Second Hand Exposure: No ; Hx Alcohol Use: Yes Alcohol type: wine Hx Substance Use: No Review of Systems Review of Systems: ROS per HPI, all other systems reviewed and negative Physical Exam Constitutional: WD/WN, vitals as above Eyes: PERRL, conjunctivae normal, anicteric sclerae ENMT: external ear and nose normal, oropharynx normal Respiratory: normal respiratory effort, lungs clear to auscultation Cardiovascular: Rate/Rhythm: regular rate and regular rhythm Heart Sounds: + murmur (Systolic, grade 2/3) Vessels: normal peripheral pulses Extremities: no edema Gastrointestinal (Abdomen): normal bowel sounds, soft, nontender, no hepatosplenomegaly Musculoskeletal: no cyanosis or clubbing, extremities motor strength 5/5 S/p back surgery, drain in place draining bloody drainage, pedal pushes and pull strong bilaterally Skin: no rashes, warm and dry Neurologic: PERRL, EOMI, accommodation nl, no face palsy, no dysarthria Psychiatric: A+Ox3, euthymic affect Results & Data Vital Signs (Past 12 Hours) Vital Signs Temp Pulse Pulse Pulse Resp BP Pulse Ox 12/14/19 15:49 36.5 C 91 H 16 108/66 96 12/14/19 14:06 84 16 108/59 L 95 12/14/19 13:10 81 16 136/73 92 12/14/19 12:50 75 16 119/69 94 12/14/19 12:10 36.5 C 76 16 113/56 L 98 12/14/19 12:05 36.7 C 72 20 113/52 L 94 12/14/19 11:55 80 14 115/50 L 96 12/14/19 11:45 75 13 113/61 100 12/14/19 11:35 73 12 99/46 L 99 12/14/19 11:26 36.5 C 70 19 97/45 L 100 12/14/19 08:03 36.7 C 68 20 126/66 95
[2019-12-14] MEDS: CEFAZOLIN 2000MG 2,000 MG/15 ML SYR IV SCH (17:11)
[2019-12-14] MEDS: DOCUSATE SODIUM/SENNA 50/8.6MG TAB PO SCH (20:19)
[2019-12-14] MEDS: ATORVASTATIN 20 MG TAB PO SCH (20:19)
[2019-12-15] MEDS: SODIUM CHLORIDE 0.9% 1000ML 1,000 ML IV SCH (00:29)
[2019-12-15] MEDS: CEFAZOLIN 2000MG 2,000 MG/15 ML SYR IV SCH (02:12)
[2019-12-15 05:44] LABS: Hematocrit (blood only) 31.6 % (42-52); Hemoglobin 10.6 g/dL (14.0-18.0); Mean Corpuscular Hemoglobin 29.7 pg (25-34); Mean Corpuscular Hgb Conc 33.5 g/dL (32-36); Mean Corpuscular Volume 88.5 fL (80-100); Mean Platelet Volume 9.1 fL (7.4-10.4); Platelet Count 125 K/uL (130-400); RDW Coefficient of Variation 14.6 % (11.5-14.5); RDW Standard Deviation 46.6 fL (36.4-46.3); Red Blood Count 3.57 M/uL (4.7-6.1)
[2019-12-15 06:09] LABS: BUN Creatinine Ratio 18.8 (10-20); Calcium 8.1 mg/dl (8.5-10.1); Creatinine Clr Calc Pharmacy 60.1 ml/min; Est GFR (African American) 86.7; Est GFR (Non-African American) 74.8; Potassium 4.2 mmol/L (3.5-5.1)
[2019-12-15] MEDS: POLYETHYLENE (MIRALAX) 17 GM PACK PO SCH ×4 (06:14→23:11)
[2019-12-15 06:27] LABS: ALC (manual) 66.95 K/uL (1.2-3.4); Lymphocytes # (manual) 50.35 K/uL (1.2-3.4); Lymphocytes % (manual) 63.7 %; Monocytes % (manual) 2.4 %; Neutrophils % (manual) 12.9 %; Smudge Cells Present
--- NOTE | 2019-12-15 08:07 | Anesthesiology Progress Note ---
Date of Service December 15, 2019 Anesthesia Post Procedure Vital Signs Vital Signs: Temp Pulse Pulse Resp BP Pulse Ox 12/15/19 07:40 37.1 C 78 18 121/65 92 12/15/19 03:15 37.1 C 85 18 111/52 L 94 12/14/19 22:45 36.6 C 89 16 121/61 95 12/14/19 19:10 36.7 C 88 16 131/69 95 12/14/19 15:49 36.5 C 91 H 16 108/66 96 12/14/19 14:06 84 16 108/59 L 95 12/14/19 13:10 81 16 136/73 92 12/14/19 12:50 75 16 119/69 94 12/14/19 12:10 36.5 C 76 16 113/56 L 98 12/14/19 12:05 36.7 C 72 20 113/52 L 94 12/14/19 11:55 80 14 115/50 L 96 12/14/19 11:45 75 13 113/61 100 12/14/19 11:35 73 12 99/46 L 99 12/14/19 11:26 36.5 C 70 19 97/45 L 100 Pain Intensity Bilateral Back: Pain Intensity: 0 Notes Mental Status: alert / awake / arousable Patient Amnestic to Procedure: Yes Nausea / Vomiting: adequately controlled Pain: adequately controlled Airway Patency, RR, SpO2: stable & adequate BP & HR: stable & adequate Hydration State: stable & adequate Anesthetic Complications: no major complications apparent and Pt Satisfied with anesthetic care
[2019-12-15] MEDS: PANTOprazole 40 MG TAB PO SCH (08:45)
[2019-12-15] MEDS: ASCORBIC ACID 500 MG TAB PO SCH (08:45)
[2019-12-15] MEDS ORDERED: Nursing to Pharmacy Communication ONE (08:59)
[2019-12-15] MEDS ORDERED: FLUTICASONE PROPIONATE NA SPR 16 GM BTL SCH (09:00)
[2019-12-15] MEDS ORDERED: FINASTERIDE 5 MG TAB PO SCH (09:00)
[2019-12-15] MEDS ORDERED: TERAZOSIN HCL 5 MG CAP PO SCH (09:00)
--- NOTE | 2019-12-15 09:44 | Hospitalist Progress Note ---
Date of Service December 15, 2019 Assessment & Plan (1) Neurogenic claudication due to lumbar spinal stenosis: - POD#1 L4-L5 decompression and fusion by Dr. Prasad - activity and wound care orders as per ortho - pain control with bowel regimen - PT/OT - monitor H/H for acute blood loss anemia and transfuse blood products PRN - EBL 50 cc; drain output 345cc - hgb 12.8 -> 10.6 (2) Thrombocytopenia: (3) CLL (chronic lymphocytic leukemia): -Baseline WBC 70-90 K -WBC today 79K -baseline platelet ~ 130K -platelet today 125K -Under surveillance, no active treatment -Follows with Dr. Dow (4) Aortic stenosis: -Mild per most recent echo -Monitor volume status closely (5) BPH (benign prostatic hyperplasia): -Continue finasteride and terazosin (6) GERD (gastroesophageal reflux disease): -Continue PPI (7) Hyperlipidemia: -Continue statin (8) DVT prophylaxis: -SCDs as per spine orthopedics Supervising Physician Co-Signing Physician Notes HISTORY: Record reviewed. Patient interviewed and examined. Care coordinated with TANISHA Lyon. Please refer to her documentation for complete history. Doing well postoperatively. No chest pain, cough, SOB, nausea, vomiting. Pain well-controlled. EXAM: General- no distress Lungs- clear to auscultation; no respiratory distress Cardiovascular- RRR; II/ systolic murmur at base; no gallop; no JVD; no pretibial edema Abdomen- + bowel sounds, soft, nontender Extremities- no cyanosis; no calf tenderness; SCD's applied Neuro- alert, oriented Skin- warm & dry DATA: 12/15/19 04:57 12/15/19 04:57 ASSESSMENT AND PLAN: S/P lumbar decompression / fusion; doing well postop. Mild aortic stenosis. CLL. Please refer to FARIDA Nguyen's documentation for discussion of other issues. Thank you for this consultation. We will follow the patient with you during their hospital stay. My cell # is [phone]. You can reach a member of the [facility] Medicine Team 10/06 via pager @ [phone]. Subjective Patient seen and examined. Sitting up in the chair, no acute distress. Having some incisional back pain, controlled with current pain med regimen. Denies chest pain and shortness of breath. No abdominal pain or nausea. Urinating and moving bowels without difficulty. Physical Exam Constitutional: no acute distress sitting up in the chair Respiratory: normal respiratory effort, lungs clear to auscultation Cardiovascular: Rate/Rhythm: regular rate and regular rhythm Heart Sounds: + murmur (systolic, grade 2/6) Extremities: no edema Gastrointestinal (Abdomen): Inspection/Auscultation: normal bowel sounds Percussion/Palpation: abdomen soft; abdomen nontender Musculoskeletal: s/p back surgery, surgical dressing dry and intact, drain in place draining bloody drainage, strength strong and equal BLLE Psychiatric: Orientation: alert and oriented x 3 Results & Data Vital Signs (Past 12 Hours) Vital Signs Temp Pulse Resp BP Pulse Ox 12/15/19 07:40 37.1 C 78 18 121/65 92 12/15/19 03:15 37.1 C 85 18 111/52 L 94 12/14/19 22:45 36.6 C 89 16 121/61 95 Laboratory Results Short CBC 12/15/19 Range/Units 04:57 WBC 79.04 H* (4.8-10.8) K/uL Hgb 10.6 L (14.0-18.0) g/dL Hct 31.6 L (42-52) % Plt Count 125 L (130-400) K/uL BMP 12/15/19 04:57 Sodium 141 Potassium 4.2 Chloride 109 H Carbon Dioxide 27 BUN 18 Creatinine 0.95 Glucose 108 H Calcium 8.1 L
[2019-12-15] MEDS: OXYCODONE HCL IR 5 MG TAB (IMMEDIATE RELEASE) PO PRN ×3 (10:45→19:54)
[2019-12-15] MEDS: CEROVITE ADV FORMULA TAB PO SCH (12:39)
--- NOTE | 2019-12-15 13:05 | Orthopedic Progress Note ---
Date of Service December 15, 2019 Assessment & Plan (1) Neurogenic claudication due to lumbar spinal stenosis: This time we will continue physical therapy monitor his BRIDGER output anticipate discharge home in the next few days. Present on Admission?: Yes Subjective Back pain controlled leg pain markedly improved Physical Exam Physical Exam: Patient is in a chair at the bedside. Is good strength testing. Appears comfortable. Results & Data ([facility]) Vital Signs (Past 12 Hours) Vital Signs Temp Pulse Resp BP Pulse Ox 12/15/19 12:14 36.9 C 76 16 136/68 96 12/15/19 07:40 37.1 C 78 18 121/65 92 12/15/19 03:15 37.1 C 85 18 111/52 L 94
[2019-12-15] MEDS: TERAZOSIN HCL 5 MG CAP PO SCH (13:24)
[2019-12-15] MEDS: FINASTERIDE 5 MG TAB PO SCH (13:25)
[2019-12-15] MEDS: DOCUSATE SODIUM/SENNA 50/8.6MG TAB PO SCH (19:54)
[2019-12-15] MEDS: ATORVASTATIN 20 MG TAB PO SCH (19:54)
[2019-12-15] MEDS: FLUTICASONE PROPIONATE NA SPR 16 GM BTL SCH (19:56)
[2019-12-16] MEDS: POLYETHYLENE (MIRALAX) 17 GM PACK PO SCH ×3 (05:37→18:53)
[2019-12-16] MEDS: OXYCODONE HCL IR 5 MG TAB (IMMEDIATE RELEASE) PO PRN ×2 (05:42→12:47)
[2019-12-16 05:58] LABS: Hematocrit (blood only) 30.5 % (42-52); Hemoglobin 9.9 g/dL (14.0-18.0); Mean Corpuscular Hemoglobin 28.7 pg (25-34); Mean Corpuscular Hgb Conc 32.5 g/dL (32-36); Mean Corpuscular Volume 88.4 fL (80-100); Mean Platelet Volume 9.3 fL (7.4-10.4); Platelet Count 119 K/uL (130-400); RDW Coefficient of Variation 14.9 % (11.5-14.5); RDW Standard Deviation 47.1 fL (36.4-46.3); Red Blood Count 3.45 M/uL (4.7-6.1)
[2019-12-16 06:16] LABS: BUN Creatinine Ratio 19.5 (10-20); Calcium 7.6 mg/dl (8.5-10.1); Creatinine Clr Calc Pharmacy 51.9 ml/min; Est GFR (African American) 72.6; Est GFR (Non-African American) 62.6; Potassium 4.5 mmol/L (3.5-5.1)
[2019-12-16 07:13] LABS: White Blood Count 95.85 K/uL (4.8-10.8)
[2019-12-16 07:14] LABS: White Blood Count 79.04 K/uL (4.8-10.8)
[2019-12-16] MEDS: PANTOprazole 40 MG TAB PO SCH (08:32)
[2019-12-16] MEDS: ASCORBIC ACID 500 MG TAB PO SCH (08:32)
[2019-12-16] MEDS: CEROVITE ADV FORMULA TAB PO SCH (12:03)
--- NOTE | 2019-12-16 13:16 | Orthopedic Progress Note ---
Date of Service December 16, 2019 Assessment & Plan (1) Neurogenic claudication due to lumbar spinal stenosis: This time we will continue physical therapy monitor support anticipate discharge home tomorrow. Present on Admission?: Yes Subjective Back pain controlled right leg symptoms markedly improved Physical Exam Physical Exam: Patient is in chair at bedside is good strength testing. Results & Data ([facility]) Vital Signs (Past 12 Hours) Vital Signs Temp Pulse Resp BP Pulse Ox 12/16/19 07:32 37.1 C 108 H 16 126/68 94
[2019-12-16] MEDS: FINASTERIDE 5 MG TAB PO SCH (13:42)
[2019-12-16] MEDS: TERAZOSIN HCL 5 MG CAP PO SCH (13:42)
--- NOTE | 2019-12-16 19:33 | Hospitalist Progress Note ---
Date of Service December 16, 2019 Assessment & Plan (1) Neurogenic claudication due to lumbar spinal stenosis: - POD#2 L4-L5 decompression and fusion by Dr. Prasad - activity and wound care orders as per ortho - pain control with bowel regimen - PT/OT - monitor H/H for acute blood loss anemia and transfuse blood products PRN - hgb 12.8 -> 10.6 -> 9.9 (2) Thrombocytopenia: (3) CLL (chronic lymphocytic leukemia): -Baseline WBC 70-90 K -WBC today 95K -baseline platelet ~ 130K -platelet today 119K -Under surveillance, no active treatment -Follows with Dr. Dow (4) Aortic stenosis: -Mild per most recent echo -Monitor volume status closely (5) BPH (benign prostatic hyperplasia): -Continue finasteride and terazosin (6) GERD (gastroesophageal reflux disease): -Continue PPI (7) Hyperlipidemia: -Continue statin (8) DVT prophylaxis: -SCDs as per spine orthopedics Subjective Patient sitting up in a chair, in no acute distress, family at the bedside. Patient denies any fevers, chills, chest pain, shortness of breath, abdominal pain, nausea or vomiting. He is ambulating, and having bowel movements. He has still some low back pain, however much improved since his surgery. Says his right lower extremity also feels much better since the surgery. Review of Systems Review of Systems: All systems reviewed & are unremarkable except as noted in HPI & below Constitutional: no fever and no chills Respiratory: + cough (mild); no dyspnea Cardiovascular: no chest pain and no palpitations Gastrointestinal: no abdominal pain, no nausea and no vomiting Physical Exam Physical Exam: Constitutional: Elderly male sitting up in a chair, in no acute distress Eyes: PERRL, EOMI, conjunctivae normal, anicteric sclerae ENMT: external ear and nose normal, oropharynx normal Respiratory: normal respiratory effort, mild rhonchus sounds, cough with deep inspiration Cardiovascular: Rate/Rhythm: regular rate and regular rhythm Heart Sounds: + murmur (Systolic, grade 2/3) Vessels: normal peripheral pulses Extremities: no edema Gastrointestinal (Abdomen): normal bowel sounds, soft, nontender, nondistended Musculoskeletal: no cyanosis or clubbing, extremities motor strength 5/5, moves extremities spontaneously, s/p back surgery, drain in place draining serosanguineous fluid, pedal pushes and pull strong bilaterally Skin: no rashes, warm and dry Neurologic: PERRL, EOMI, accommodation nl, no face palsy, no dysarthria, no extremity spontaneously Psychiatric: A+Ox3, euthymic affect Results & Data Vital Signs (Past 12 Hours) Vital Signs Temp Pulse Resp BP Pulse Ox 12/16/19 15:44 37.3 C 88 16 119/55 L 92 12/16/19 07:32 37.1 C 108 H 16 126/68 94 Laboratory Results 12/16/19 12/16/19 12/15/19 Range/Units 05:11 05:11 04:57 WBC 95.85 H* 79.04 H* (4.8-10.8) K/uL RBC 3.45 L (4.7-6.1) M/uL Hgb 9.9 L (14.0-18.0) g/dL Hct 30.5 L (42-52) % MCV 88.4 (80-100) fL MCH 28.7 (25-34) pg MCHC 32.5 (32-36) g/dL RDW Std Deviation 47.1 H (36.4-46.3) fL RDW Coeff of Jama 14.9 H (11.5-14.5) % Plt Count 119 L (130-400) K/uL MPV 9.3 (7.4-10.4) fL Sodium 135 L (136-145) mmol/L Potassium 4.5 (3.5-5.1) mmol/L Chloride 105 (98-107) mmol/L Carbon Dioxide 28 (21-32) mmol/L Anion Gap 2.0 L (3-11) BUN 21 H (7-18) mg/dl Creatinine 1.10 (0.6-1.4) mg/dl Est Cr Clr Drug Dosing 51.9 ml/min Est GFR ( Amer) 72.6 Est GFR (Non-Af Amer) 62.6 BUN/Creatinine Ratio 19.5 (10-20) Glucose 89 (70-99) mg/dl Calcium 7.6 L (8.5-10.1) mg/dl Medications Administered Current Inpatient Medications Acetaminophen (Tylenol) 500 mg PO HS PRN PRN Reason: Sleep Stop: 01/13/20 13:44 Acetaminophen (Tylenol) 1,000 mg PO Q8H PRN PRN Reason: MILD Pain Rating 1,2,3 Stop: 01/13/20 12:28 Al Hydrox/Mg Hydrox/Simethicone (Maalox) 30 ml PO Q6H PRN PRN Reason: Dyspepsia Stop: 01/13/20 12:28 Ascorbic Acid (Vitamin C) 500 mg PO QAM [facility] Stop: 01/14/20 08:59 Last Admin: 12/16/19 08:32 Dose: 500 mg Documented by: Atorvastatin Calcium (Lipitor) 20 mg PO PM [facility] Stop: 01/13/20 20:59 Last Admin: 12/15/19 19:54 Dose: 20 mg Documented by: Bisacodyl (Dulcolax) 10 mg DE DAILY PRN PRN Reason: Constipation Stop: 01/13/20 12:28 Diphenhydramine HCl (Benadryl Capsule) 25 mg PO Q6H PRN PRN Reason: Allergic Rhinitis/Insomnia Stop: 01/13/20 12:28 Diphenhydramine HCl (Benadryl Capsule) 25 mg PO HS PRN PRN Reason: Sleep Stop: 01/13/20 13:45 Famotidine (Pepcid) 20 mg PO Q12H PRN PRN Reason: Dyspepsia Stop: 01/13/20 12:28 Finasteride (Proscar) 5 mg PO DAILY@1400 [facility] Stop: 01/14/20 13:59 Last Admin: 12/16/19 13:42 Dose: 5 mg Documented by: Fluticasone Propionate (Flonase) 2 sprays NA HS [facility] Stop: 01/14/20 20:59 Last Admin: 12/15/19 19:56 Dose: 2 sprays Documented by: Guaifenesin (Mucinex) 600 mg PO Q12 [facility] Stop: 01/15/20 20:59 Hydromorphone HCl (Dilaudid) 0.5 mg IV Q3H PRN PRN Reason: moderate pain (scale 4-6) Stop: 12/28/19 12:28 Hydromorphone HCl (Dilaudid) 1 mg IV Q3H PRN PRN Reason: severe pain (scale 7-10) Stop: 12/28/19 12:28 Hydroxyzine HCl (Vistaril) 25 mg PO Q8H PRN PRN Reason: Anxiety Stop: 01/13/20 12:28 Lorazepam (Ativan) 0.5 mg in 1 mls @ 0.5 mls/min IV Q8H PRN PRN Reason: Sedation/Anxiety Stop: 01/13/20 12:28 Promethazine HCl 12.5 mg/ (Sodium Chloride) 50.5 mls @ 204 mls/hr IV Q6H PRN PRN Reason: Nausea &/or Vomiting Stop: 01/13/20 12:28 Influenza Virus Vaccine Quadrival (Flu Vaccine, Do Not Administer) 1 ea N/A PRN PRN PRN Reason: Notification Stop: 01/13/20 12:28 Lorazepam (Ativan) 0.5 mg PO Q8H PRN PRN Reason: Sedation/Anxiety Stop: 01/13/20 12:28 Magnesium Hydroxide (Milk Of Magnesia) 30 ml PO DAILY PRN PRN Reason: Constipation Stop: 01/13/20 12:28 Metoclopramide HCl (Reglan) 10 mg IV Q6H PRN PRN Reason: Nausea &/or Vomiting Stop: 01/13/20 12:28 Multivitamins/Minerals (Multivitamin W/ Minerals Tab) 1 tab PO QDL [facility] Stop: 01/14/20 11:29 Last Admin: 12/16/19 12:03 Dose: 1 tab Documented by: Naloxone HCl (Narcan) 0.1 mg IV Q5M PRN; Protocol PRN Reason: Oversedation/Resp Depression Stop: 01/13/20 12:28 Ondansetron HCl (Zofran) 4 mg IV Q6H PRN PRN Reason: Nausea &/or Vomiting Stop: 01/13/20 12:28 Ondansetron HCl (Zofran Odt) 4 mg PO Q6H PRN PRN Reason: Nausea Stop: 01/13/20 12:28 Oxycodone HCl (Roxicodone Immediate Rel) 5 - 10 mg PO Q4H PRN PRN Reason: Moderate-Severe Pain Stop: 12/28/19 12:28 Last Admin: 12/16/19 12:47 Dose: 5 mg Documented by: Pantoprazole Sodium (Protonix) 40 mg PO QAM [facility] Stop: 01/14/20 08:59 Last Admin: 12/16/19 08:32 Dose: 40 mg Documented by: Pneumococcal Polyvalent Vaccine (Pneumococcal Vacc, Do Not Administer) 1 ea N/A PRN PRN PRN Reason: Notification Stop: 01/13/20 12:28 Senna/Docusate Sodium (Senokot S) 2 tab PO HS [facility] Stop: 01/13/20 20:59 Last Admin: 12/15/19 19:54 Dose: 2 tab Documented by: Sodium Biphosphate/Sodium Phosphate (Fleet Enema) 132 ml DE ONE PRN PRN Reason: Constipation Stop: 01/13/20 12:28 Terazosin HCl (Hytrin) 10 mg PO DAILY@1400 [facility] Stop: 01/14/20 13:59 Last Admin: 12/16/19 13:42 Dose: 10 mg Documented by: Tramadol HCl (Ultram) 50 - 100 mg PO Q4H PRN PRN Reason: Moderate-Severe Pain Stop: 01/13/20 12:28
[2019-12-16] MEDS ORDERED: SODIUM CHLORIDE 0.65% NA SOLN 45 ML (OCEAN) ONE (19:38)
[2019-12-16] MEDS: DOCUSATE SODIUM/SENNA 50/8.6MG TAB PO SCH (20:30)
[2019-12-16] MEDS: FLUTICASONE PROPIONATE NA SPR 16 GM BTL SCH (20:30)
[2019-12-16] MEDS: ATORVASTATIN 20 MG TAB PO SCH (20:30)
[2019-12-16] MEDS: guaiFENesin 600 MG TABCR PO SCH (20:58)
[2019-12-17 06:15] LABS: Hematocrit (blood only) 31.2 % (42-52); Hemoglobin 10.2 g/dL (14.0-18.0); Mean Corpuscular Hemoglobin 28.4 pg (25-34); Mean Corpuscular Hgb Conc 32.7 g/dL (32-36); Mean Corpuscular Volume 86.9 fL (80-100); Mean Platelet Volume 9.5 fL (7.4-10.4); Platelet Count 114 K/uL (130-400); RDW Coefficient of Variation 14.4 % (11.5-14.5); Red Blood Count 3.59 M/uL (4.7-6.1); White Blood Count 83.28 K/uL (4.8-10.8)
[2019-12-17] MEDS: OXYCODONE HCL IR 5 MG TAB (IMMEDIATE RELEASE) PO PRN ×2 (06:21→11:17)
[2019-12-17 07:04] LABS: Calcium 8.8 mg/dl (8.5-10.1); Creatinine Clr Calc Pharmacy 57.1 ml/min; Est GFR (African American) 82.4; Est GFR (Non-African American) 71.1
[2019-12-17] MEDS ORDERED: ALBUTEROL 0.083% NEBU SOLN 3 ML VIAL NEB PRN (07:52)
--- NOTE | 2019-12-17 08:39 | Discharge Summary ---
Date of Service December 17, 2019 Admission HPI Per Admitting Provider This is an 79-year-old male presents with worsening back and leg pain after failing a course of nonoperative care is here for surgical intervention. Principal Diagnosis Lumbar spinal stenosis with neurogenic claudication Discharge Data Allergies Allergy/AdvReac Type Severity Reaction Status Date / Time niacin Allergy Unknown RASH/FLUSHI Verified 12/14/19 08:49 NG pseudoephedrine AdvReac Unknown URINARY Verified 12/14/19 08:49 RETENTION Consultations 12/14/19 12:29 Consult Case Management - Discharge Planning Routine Consult Hospitalist Routine Procedures Performed Operation Date: 12/14/19 09:35 Actual Procedures p L4-L5 Decompression and Fusion, Interbody fusion, use of Osetoamp and Infuse, Spinal Cord Monitoring(Not Applicable) - Jordy Prasad DO Ordered Studies 12/14/19 09:35 FL fluoroscopy <1hr Routine FL lumbar spine 2-3V Routine Hospital Course (1) Neurogenic claudication due to lumbar spinal stenosis: Patient with lumbar decompression fusion tolerated so was taken to orthopedic for postoperative. Postop day 1 is up ambulating progressed appropriately postop day #2 on postop day #3 BRIDGER drain decreasing probably. Pain well controlled. Neurologic intact. Subsequently discharged home. Discharge orders instructions from the chart for further review. Total Time Total Time Spent Total Time Spent (In Minutes): 20 Discharge Plan Discharge Items Patient Disposition: Home - Self-Care Reason For Visit: LUMBAR SPINAL STENOSIS W/NEUROGENIC CLAUDICATION Discharge Diagnosis: Lumbar spinal stenosis with neurogenic claudication Activity: As commented below Non-emergency contact: Primary Care Provider Call non-emergency contact if: you have any medication questions Follow-up/Referrals: Alex Melchor DO [Primary Care Provider] - Diet: Regular Addtl Attending Provider Instructions: ACTIVITY RECOMMENDATIONS: SELF CARE INSTRUCTIONS AFTER THORACIC/LUMBAR FUSIONS 1. You may walk to your tolerance. It is good exercise for your legs and back. Expect some back and intermittent leg aches and pains. 2. You may perform "counter-top" level activities (make a sandwich, hanh with a project, etc.). 3. No bending or lifting of more than 10 pounds or back twisting of any nature (roll like a log when turning in bed). 4. You may ride in a car for 20-30 minutes at a time. No driving until after your first visit with your doctor. 5. Frequent changes of position and restricting sitting to 30 minutes at a time will help limit the amount of back spasms and stiffness you may experience. 6. You may discontinue the use of ambulatory aids (cane, crutches, etc.) once your strength and confidence allow. 7. You may junior electrical engineer the shower and let water strike your incision when you arrive home at least once daily. Do not take a tub bath, sit in a hot tub or go into a swimming pool until after your first recheck in the office. SPECIAL CARE INSTRUCTIONS: VERY IMPORTANT TO READ AND REVIEW A. Your surgical incision has been closed with a cosmetic suture under the skin that will dissolve in about 6 weeks. In 14 days, you can use a pair of clean scissors and cut the suture that is left outside of the skin at the ends of your incision. 1. The small skin tapes can be removed 7 days after surgery if they have not fallen off by that point. 2. You may keep the wound open to air as much as possible to promote healing after post-op day number 5 unless told otherwise by your doctor. 3. If you think the wound looks like it is becoming infected (redness or worsening drainage) and/or you are experiencing fever, chill or worsening back pain and muscle spasms, contact the office so that we may evaluate you as soon as possible. B. Complications are uncommon, but please contact us if you have any signs or symptoms of: 1. wound infection (fever higher than 102.5 degrees F, redness, separation of wound, drainage, or increasing pain from the incision) 2. blood clots in legs (pain, swelling, redness and warmth in legs) 3. urinary tract infection (fever higher than 102.5 degrees F, burning upon urination or increased frequency of urination) 4. nerve problems (inability to walk on your toes or heels, numbness, loss of bowel or bladder control) 5. any other symptoms that concern you C. Please call the office at if you have any concerns or qu estions about your operation or recovery. D. No smoking! Smoking drastically decreases the chance of a solid fusion. E. Do not take any anti-inflammatory medications (Indocin, Advil, Motrin, Aspirin, Naprosyn, etc.) as these may inhibit the chance of a solid fusion. Tylenol is okay to take for pain. MANAGING PAIN AFTER SPINAL SURGERY 1. Narcotic medication is intended for short-term use and will be provided for surgical pain. Surgical pain usually lasts for a period of 4-6 weeks. Narcotic medication includes Percocet, Vicodin, Darvocet, Tylenol #3 or Lortab. 2. Longer-term pain is more appropriately treated with non-narcotic medication such as Tylenol ES. 3. Muscle spasm is not appropriately treated with narcotics. Muscle relaxers such as Soma, Flexeril or Skelaxin can be used along with Tylenol ES. 4. Remember that we all live with some "aches and pains". This is not unusual or uncommon after an injury or as we get older. a. Back pain is expected and may include muscle spasms for 4 to 6 weeks after surgery. The pain should gradually improve. If the pain worsens for no apparent reason, please contact the office. b. Intermittent leg pain may also be experienced and should not be concerned about unless it worsens for no apparent reason. If so, please contact the office. 5. We will provide appropriate medication within the normal guidelines of their prescribed use. We will also be very cautious and aware of potential abuse and extended duration of patients' medication needs. a. Pain medications are for your comfort and to assist with sleep and rest so that the tissue can heal. They are not provided in order to return to normal activity and should not be used through the day. To do so or worsening pain at night can result from ongoing tissue damage and development of tolerance to the prescribed medicine. 6. Please allow 2-3 days to process refills. Prescriptions will not be mailed but must be picked up at the office. FOLLOW UP VISIT: Keep your scheduled follow-up appointment. Any questions, please call the office at . Pending Studies at Discharge: No Stand-Alone Forms: My [employer], Smoking Cessation Medications and DC Order Prescriptions: New tramadol 50 mg tablet 50 mg PO Q6H PRN (Reason: pain, moderate) Qty: 30 RF: 0 oxycodone 5 mg tablet 5 mg PO Q6H PRN (Reason: pain, severe) Qty: 30 RF: 0 Continued atorvastatin 20 mg Tablet 20 mg PO PM RF: 0 Benadryl Itch Stopping 1-0.1 % Cream 1 applic TOPICAL QID PRN (Reason: Itching) RF: 0 ascorbic acid (vitamin C) [Vitamin C] 500 mg Tablet 500 mg PO QAM RF: 0 diphenhydramine-acetaminophen [Tylenol PM Extra Strength] 25-500 mg Tablet 1 tab PO HS PRN (Reason: Sleep) RF: 0 ketoconazole 2 % Cream 1 applic TOPICAL DAILY PRN (Reason: Itching) RF: 0 terazosin 10 mg Capsule 10 mg PO DAILY RF: 0 finasteride 5 mg Tablet 5 mg PO QAM RF: 0 Centrum Silver 400-250 mcg Tablet,Chewable 1 tab PO QDL RF: 0 omeprazole 20 mg Tablet,Disintegrat, Delay Rel 20 mg PO QAM RF: 0 fluticasone propionate [Flonase Allergy Relief] 50 mcg/actuation [place],Suspension 2 spray INTRANASAL DAILY RF: 0 Discharge Orders: Discharge Order (Routine); Ordered 12/17/19 Ordered By: Jordy Prasad Admission Data Admit Date/Time: 12/14/19 12:11 Attending Provider: Jordy Prasad Admit Provider: Jordy Prasad Primary Care Provider: Alex Melchor Other Providers: Riki Rosenthal
[2019-12-17] MEDS: ASCORBIC ACID 500 MG TAB PO SCH (08:49)
[2019-12-17] MEDS: PANTOprazole 40 MG TAB PO SCH (08:49)
[2019-12-17] MEDS: guaiFENesin 600 MG TABCR PO SCH (08:49)
[2019-12-17] MEDS: CEROVITE ADV FORMULA TAB PO SCH (11:17)
--- NOTE | 2019-12-17 11:57 | Hospitalist Progress Note ---
Date of Service December 17, 2019 Assessment & Plan (1) Neurogenic claudication due to lumbar spinal stenosis: - POD#3 L4-L5 decompression and fusion by Dr. Prasad - activity and wound care orders as per ortho - pain control with bowel regimen - PT/OT - monitor H/H for acute blood loss anemia and transfuse blood products PRN - hgb 12.8 -> 10.6 -> 9.9 ->10.2 (stable) (2) Thrombocytopenia: (3) CLL (chronic lymphocytic leukemia): -Baseline WBC 70-90 K -WBC today 83K -baseline platelet ~ 130K -platelet today 114K -Under surveillance, no active treatment -Follows with Dr. Dow (4) Aortic stenosis: -Mild per most recent echo -Monitor volume status closely (per EMR, weight mildly decreased since admission) Nasal congestion, post nasal drip - in addition to flonase, added ocean nasal spray - gave albuterol treatment as pt uses albuterol at home occasionally - will Rx albuterol inh and pt will follow up w/ PCP next week - no fever, chills, increased sputum, not likely developing pna (5) BPH (benign prostatic hyperplasia): -Continue finasteride and terazosin (6) GERD (gastroesophageal reflux disease): -Continue PPI (7) Hyperlipidemia: -Continue statin (8) DVT prophylaxis: -SCDs as per spine orthopedics Subjective Patient sitting up in a chair, in no acute distress, family at the bedside. Patient denies any fevers, chills, chest pain, shortness of breath, abdominal pain, nausea or vomiting. He is ambulating, and having bowel movements. He has still some low back pain, however much improved since his surgery. Yesterday patient complained about mild nasal congestion, and we started him on nasal spray (ocean) in addition to his Flonase. Recommended to continue his incentive spirometer. Patient denies any sputum production, says very occasionally he coughs up white phlegm. Also says that occasionally he needs to use his albuterol inhaler at home. Gave him albuterol treatment this morning which seemed to improve his symptoms. Will rx him albuterol inhaler again until he sees his primary care doctor next week. Review of Systems Review of Systems: All systems reviewed & are unremarkable except as noted in HPI & below Constitutional: no fever and no chills Ear, Nose, Mouth, Throat: + nasal congestion Respiratory: + cough (mild occasional); no dyspnea and no pain on inspiration Cardiovascular: no chest pain, no dyspnea at rest, no dyspnea on exertion and no palpitations Gastrointestinal: no abdominal pain, no nausea and no vomiting Physical Exam Physical Exam: Constitutional: Elderly male sitting up in bed, in no acute distress Eyes: PERRL, EOMI, conjunctivae normal, anicteric sclerae ENMT: external ear and nose normal, oropharynx normal Respiratory: normal respiratory effort, very mild wheezes Cardiovascular: Rate/Rhythm: regular rate and regular rhythm Heart Sounds: + murmur (Systolic, grade 2/3) Vessels: normal peripheral pulses Extremities: no edema Gastrointestinal (Abdomen): normal bowel sounds, soft, nontender, nondistended Musculoskeletal: no cyanosis or clubbing, extremities motor strength 5/5, moves extremities spontaneously, s/p back surgery Skin: no rashes, warm and dry Neurologic: PERRL, EOMI, accommodation nl, no face palsy, no dysarthria, moves extremities spontaneously Psychiatric: A+Ox3, euthymic affect Results & Data ([facility]) Vital Signs (Past 12 Hours) Vital Signs Temp Pulse Resp BP Pulse Ox 12/17/19 08:55 87 17 93 12/17/19 07:31 37.1 C 82 16 111/63 92 Laboratory Results 12/17/19 12/17/19 Range/Units 05:23 05:23 WBC 83.28 H* (4.8-10.8) K/uL RBC 3.59 L (4.7-6.1) M/uL Hgb 10.2 L (14.0-18.0) g/dL Hct 31.2 L (42-52) % MCV 86.9 (80-100) fL MCH 28.4 (25-34) pg MCHC 32.7 (32-36) g/dL RDW Std Deviation 45.0 (36.4-46.3) fL RDW Coeff of Jama 14.4 (11.5-14.5) % Plt Count 114 L (130-400) K/uL MPV 9.5 (7.4-10.4) fL Sodium 135 L (136-145) mmol/L Potassium 4.0 (3.5-5.1) mmol/L Chloride 102 (98-107) mmol/L Carbon Dioxide 27 (21-32) mmol/L Anion Gap 6.0 (3-11) BUN 18 (7-18) mg/dl Creatinine 0.99 (0.6-1.4) mg/dl Est Cr Clr Drug Dosing 57.1 ml/min Est GFR ( Amer) 82.4 Est GFR (Non-Af Amer) 71.1 Fasting Glucose 85 (70-99) mg/dl Calcium 8.8 D (8.5-10.1) mg/dl Magnesium 2.0 (1.8-2.4) mg/dl
== END 2019-12-17 11:56 | disposition home or self-care (01) | DRG 454 ==
LOC: ASU 07:27 → 3E 12:11

== ENCOUNTER 2022-10-05 08:06 | Observation (INO) ==
--- NOTE | 2022-10-02 15:25 | Anesthesiology Consultation ---
Date of Service October 02, 2022 Assessment & Plan (1) Encounter for pre-operative examination: - COVID screening: Per assessment on 10/02: No known COVID-19 positive contacts or current COVID-19 related symptoms. Travel screen negative. Patient vaccinated. Patient was Covid positive 09/07 ([place])- pt was/remained asymptomatic. Testing was done for preop testing. Surgery postponed/rescheduled to 10/05. Pt can proceed as scheduled with rescheduled DOS without additional preop Covid testing or additional Covid contact precautions per 90 days protocol. -Outpatient joint assessment: Pt currently scheduled for inpatient pathway. If surgeon requests review for outpatient joint pathway, patient isnotrecommended candidate for outpatient joint program from anesthesia standpoint. -Cardiology note (07/05/22): Patient was scheduled for 07/2022 shoulder surgery (but patient ended up cancelling this per his request) > "Stress test is normal and reassuring. Recommend proceeding to shoulder surgery as planned in July without cardiac testing." -Eliquis instructions: patient made aware that in order for spinal anesthesia, Eliquis needs to be held 72 hours/3 days prior to surgery. Patient voiced understanding/will check if okay with prescriber. -Moderate aortic stenosis(BALTAZAR 0.95-0.98, MG 24.2mmhg) per 02/2022 echo. Discussed SAB vs. GA. Chart Review Chart Review: Acceptable Risk for Surgery and Patient seen in Pre Admission Testing (08/08/22) History Surgery Operation Date: 10/05/22 12:50 Proposed Procedures p Right Total Knee Arthroplasty - Yusuf Pendleton, Height/Weight Height: 5 ft 5 in Weight: 77.111 kg Allergies Allergy/AdvReac Type Severity Reaction Status Date / Time niacin Allergy Intermediate Rash, Verified 10/02/22 12:47 flushing pseudoephedrine AdvReac Mild Urinary Verified 10/02/22 12:47 retention Medications Home Medications Medication Instructions Recorded Confirmed Last Taken ascorbic acid (vitamin C) 500 mg 500 mg PO QAM 12/01/19 10/02/22 09/05/22 16:00 tablet (Vitamin C) atorvastatin 20 mg tablet 20 mg PO PM 12/01/19 10/02/22 09/05/22 20:00 diphenhydramine-zinc acetate 1 1 applic topical QID PRN Itching 12/01/19 10/02/22 08/31/22 21:00 %-0.1 % topical cream (Benadryl Itch Stopping) finasteride 5 mg tablet 5 mg PO QAM 12/01/19 10/02/22 09/05/22 09:00 ketoconazole 2 % topical cream 1 applic topical DAILY PRN Itching 12/01/19 10/02/22 09/01/22 09:00 multivit with min-folic 1 tab PO QDL 12/01/19 10/02/22 09/05/22 09:00 acid-lutein 400 mcg-250 mcg chewable tablet (Centrum Silver) omeprazole 20 mg delayed 20 mg PO QAM 12/01/19 10/02/22 09/06/22 10:00 release,disintegrating tablet terazosin 10 mg capsule 10 mg PO QAM 12/01/19 10/02/22 09/05/22 09:00 fluticasone propionate 50 2 spray intranasal DAILY PRN 12/14/19 10/02/22 09/04/22 21:00 mcg/actuation nasal Congestion spray,suspension (Flonase Allergy Relief) albuterol sulfate 90 mcg/actuation 1 puffs inhalation QID PRN 12/17/19 10/02/22 08/31/22 21:00 aerosol inhaler shortness of breath or wheezing #8.5 grams ibrutinib 420 mg tablet (Imbruvica) 420 mg PO QAM 05/24/21 10/02/22 09/01/22 09:00 apixaban 2.5 mg tablet (Eliquis) 2.5 mg PO BID 09/07/21 10/02/22 09/04/22 10:00 Past Medical History Medical History (Updated 10/02/22 @ 15:21 by Oriana Hernandez) Aortic stenosis Moderate aortic stenosis (BALTAZAR 0.95-0.98, MG 24.2mmhg) per 02/2022 echo Atrial fibrillation Persistent- on Eliquis Follows with Dr. Quinones Bifascicular block BPH (benign prostatic hyperplasia) Carotid artery stenosis CLL (chronic lymphocytic leukemia) under surveillance by oncology ([facility]) GERD (gastroesophageal reflux disease) controlled Hearing deficit B/L [place] History of COVID-19 09/07/22 @ [facility]--completely asymptomatic, done prior to surgery 12/2020, tested d/t exposure, was asymptomatic Hyperlipidemia Osteoarthritis Thrombocytopenia Chronic with fluctuating platelets in the low 100-120s per chart review Past Family History Family History Father Family hx of colon cancer Past Surgical History Surgical History History of appendectomy History of colonoscopy History of esophagogastroduodenoscopy (EGD) History of left cataract surgery History of lumbar fusion History of tooth extraction Hx of right cataract extraction Social History Smoking Status: Former smoker Do You Dip or Chew Tobacco: No Smoking End Date: occasional use; last over 50yrs ago Hx Alcohol Use: Yes Alcohol type: beer and wine alcohol intake frequency: holidays/special occasions only Hx Substance Use: No substance use type: does not use Lab Results Anesthesia Preop Results Results Anesthesia Widget: WBC 9.85 K/ul (4.8-10.8) 08/08/22 Hgb 14.4 g/dl (14.0-18.0) 08/08/22 Hct 44.1 % (40.1-51.0) 08/08/22 Plt 128 K/uL (130-400) L 08/08/22 Na 141 mmol/L (136-145) 08/08/22 K 4.6 mmol/L (3.5-5.1) 08/08/22 Cl 107 mmol/L (98-107) 08/08/22 CO2 29 mmol/L (21-32) 08/08/22 BUN 15 mg/dl (6-23) 08/08/22 Creat 0.95 mg/dl (0.6-1.4) 08/08/22 Glucose Level 78 mg/dl (70-99(Fasting)) 08/08/22 PT 11.9 Seconds (9.0-12.0) 08/08/22 PTT 28.1 Seconds (21.0-31.0) 08/08/22 INR 1.1 (0.9-1.1) 08/08/22 SARS-CoV-2, RNA, NAAT POSITIVE (NEGATIVE) A* 09/07/22 Blood Type AB Positive 08/08/22 Antibody Screen NEGATIVE 08/08/22 Testing Electrocardiogram Date: 08/08/22 A. fib at 86 bpm. RBBB. LAFB.*Bifascicular block*nonspecific T wave abnormality. unconfirmed report. Bifascicular block dating back to at least 03/09/19 [facility] ECG. Echo done 02/2022* Chest X-Ray Date: 08/08/22 Findings: + NAD Echocardiogram Date: 02/16/22 LVEF 45-49%. Mildly increased concentric LV wall thickness. Borderline diffuse LV hypokinesis. Moderately calcified aortic valve. Moderate aortic stenosis. Mild MR/TR. No significant change compared to 03/09/2021 per report. Stress Test Date: 07/04/22 Type: nuclear Gated SPECT imaging reveals normal myocardial thickening and wall motion. LVEF 51%. Lexiscan nuclear cardiac stress test negative for ischemia. 101% MPHR. Rest EKG reveals atrial fibrillation with RBBB and LAFB. During and following stress there were no additional EKG changes or arrhythmias. Other Testing Carotid duplex (03/27/19) B/L antegrade flow. B/L < 50% ICA stenosis.
--- NOTE | 2022-10-04 12:58 | History & Physical Report ---
Date of Service October 04, 2022 Assessment & Plan (1) Osteoarthritis of right knee: We will proceed with a right total knee arthroplasty. Postoperatively she will be started on Eliquis for DVT prophylaxis and kept overnight in the hospital for postop medical management. He plans to have the hospital set up home health upon discharge. History of Present Illness Chief Complaint: Osteoarthritis of the right knee. Primary Care Provider: Alex Melchor DO Juan is a pleasant 81-year-old male who has been dealing with chronic worsening right knee pain. X-rays and clinical examination have been diagnostic for advanced arthritis of the right knee. I have been giving him serial injections. Unfortunately, the injections are not helping anymore. He is t aking care of his who has had advanced dementia. It is to the point where he cannot live with the knee pain the way it is anymore. He has elected to proceed with a right total knee arthroplasty. . Allergies Allergy/AdvReac Type Severity Reaction Status Date / Time niacin Allergy Intermediate Rash, Verified 10/02/22 12:47 flushing pseudoephedrine AdvReac Mild Urinary Verified 10/02/22 12:47 retention Home Medications Medication Instructions Recorded Confirmed Type ascorbic acid (vitamin C) 500 mg 500 mg PO QAM 12/01/19 10/02/22 History tablet (Vitamin C) atorvastatin 20 mg tablet 20 mg PO PM 12/01/19 10/02/22 History diphenhydramine-zinc acetate 1 1 applic topical QID PRN Itching 12/01/19 10/02/22 History %-0.1 % topical cream (Benadryl Itch Stopping) finasteride 5 mg tablet 5 mg PO QAM 12/01/19 10/02/22 History ketoconazole 2 % topical cream 1 applic topical DAILY PRN Itching 12/01/19 10/02/22 History multivit with min-folic 1 tab PO QDL 12/01/19 10/02/22 History acid-lutein 400 mcg-250 mcg chewable tablet (Centrum Silver) omeprazole 20 mg delayed 20 mg PO QAM 12/01/19 10/02/22 History release,disintegrating tablet terazosin 10 mg capsule 10 mg PO QAM 12/01/19 10/02/22 History fluticasone propionate 50 2 spray intranasal DAILY PRN 12/14/19 10/02/22 History mcg/actuation nasal Congestion spray,suspension (Flonase Allergy Relief) albuterol sulfate 90 mcg/actuation 1 puffs inhalation QID PRN 12/17/19 10/02/22 Rx aerosol inhaler shortness of breath or wheezing #8.5 grams ibrutinib 420 mg tablet (Imbruvica) 420 mg PO QAM 05/24/21 10/02/22 History apixaban 2.5 mg tablet (Eliquis) 2.5 mg PO BID 09/07/21 10/02/22 History Past Med/Surg History Medical History Aortic stenosis Moderate aortic stenosis (BALTAZAR 0.95-0.98, MG 24.2mmhg) per 02/2022 echo Atrial fibrillation Persistent- on Eliquis Follows with Dr. Quinones Bifascicular block BPH (benign prostatic hyperplasia) Carotid artery stenosis CLL (chronic lymphocytic leukemia) under surveillance by oncology ([facility]) GERD (gastroesophageal reflux disease) controlled Hearing deficit B/L [place] History of COVID-19 09/07/22 @ [facility]--completely asymptomatic, done prior to surgery 12/2020, tested d/t exposure, was asymptomatic Hyperlipidemia Osteoarthritis Thrombocytopenia Chronic with fluctuating platelets in the low 100-120s per chart review Surgical History History of appendectomy History of colonoscopy History of esophagogastroduodenoscopy (EGD) History of left cataract surgery History of lumbar fusion History of tooth extraction Hx of right cataract extraction Family History Father Family hx of colon cancer Social History Smoking Status: Former smoker Second Hand Exposure: No; Hx Alcohol Use: Yes Alcohol type: beer and wine Hx Substance Use: No Preferred Language: Lao Communication Ability: Effective Visual Impairment: No Limitations Scallop Cutter Required: No Beliefs That Will Affect Care: None marital status: Current Living Situation: Spouse Current Living Situation Comment: lives with Feels Safe at Home: Yes Assistive Devices: Glasses and Hearing Aid - Bilateral Review of Systems All systems reviewed & are unremarkable except as noted in HPI & below. Physical Exam On physical examination the right knee, he has a trace effusion. He is range of motion of 0 to 120 degrees. He has no instability. He has pain over the distal femoral condyle.. Constitutional WD/WN, vitals as above Eyes PERRL, conjunctivae normal, anicteric sclerae ENMT external ear and nose normal, oropharynx normal Neck trachea midline, no thyromegaly Respiratory normal respiratory effort, lungs clear to auscultation Cardiovascular RRR, no murmur, no edema Gastrointestinal (Abdomen) normal bowel sounds, soft, nontender, no hepatosplenomegaly Skin no rashes, warm and dry Psychiatric A+Ox3, euthymic affect Results & Data Results & Data Laboratory Results . Diagnostic Findings X-rays of the right knee show advanced osteoarthritis with joint space narrowing, osteophyte formation, and [id number] reticulation. PG Care Time/CCT Total # of Minutes Spent Total Time Spent with Patient: Total time spent is greater than 50% in coordination of care (as documented) at patient's floor/unit and/or counseling patient: Coding Level of Care Code None Diagnoses Osteoarthritis of right knee M17.11
[~2022-10-05 08:06] MED LIST changes: +BUPIVACAINE 0.5 % 5 MG/1 ML PF 10ML VIAL ONE; -CEFAZOLIN 2000MG 2,000 MG/15 ML SYR IV SCH; -CeleBREX 200 MG CAP PO SCH; +FAMOTIDINE 20 MG TAB PO SCH; +GABAPENTIN 300 MG CAP PO SCH; +Ketorolac (*for OR use only*) 30 MG, dexAMETHasone 4 MG, KETAMINE HCL (**OR use only) 1... INFIL SCH; -LR 15ML/HR IV SCH; +LR 500ML BOLUS, THEN 15ML/HR IV SCH; +LR 60ML/HR IV SCH; +ORTHO JOINT ANESTHETIC ONE; +ROPIVACAINE 0.5% 5 MG/ML 30 ML VIAL ONE; +TRANEXAMIC ACID 1,000 MG **IV Intra-op IV SCH; +TRANEXAMIC ACID 1,000 MG **IV Pre-op IV SCH; +ceFAZolin 2000MG 2,000 MG/15 ML SYR IV SCH; +dexAMETHasone 4 MG TAB PO SCH
[2022-10-05] MEDS ORDERED: fentaNYL citrate 100 MCG/2 ML VIAL ONE (08:46)
[2022-10-05] MEDS ORDERED: LIDOCAINE 2% 20 MG/ML 5 ML SYR IV ONE (08:46)
[2022-10-05] MEDS ORDERED: MIDAZOLAM HCL 1 MG/ML 2ML VIAL ONE (08:46)
[2022-10-05] MEDS ORDERED: PROPOFOL IV EMULSION 10 MG/ML 20 ML VIAL IV ONE (08:46)
[2022-10-05] MEDS ORDERED: ePHEDrine sulfate 50 MG/ML AMP ONE (08:46)
[2022-10-05] MEDS ORDERED: PHENYLEPHRINE HCL 10 MG/ML VIAL ONE (08:46)
--- NOTE | 2022-10-05 09:00 | History & Physical Bridge Note ---
Date of Service October 05, 2022 History & Physical Bridge Note I have examined the patient, reviewed the History & Physical and in the interval since the performance of the History & Physical I have noted the following changes of clinical significance: no changes noted
[2022-10-05] MEDS ORDERED: ATROPINE SULFATE 0.1 MG/ML 10ML SYR IV PRN (09:26)
[2022-10-05] MEDS ORDERED: HYDROmorphone INJ 1 MG/ML SYRINGE IV PRN (09:26)
[2022-10-05] MEDS ORDERED: KETOROLAC 30 MG/ML VIAL IV PRN (09:26)
[2022-10-05] MEDS ORDERED: ONDANSETRON INJ 2 MG/ML 2 ML VIAL IV PRN ×2 (09:26→12:28)
[2022-10-05] MEDS ORDERED: METOPROLOL TARTRATE 1 MG/ML VIAL IV ONE (10:05)
[2022-10-05] MEDS ORDERED: NEOSTIGMINE METHYLSULFATE 1 MG/ML 10ML VIAL ONE (10:56)
[2022-10-05] MEDS ORDERED: ONDANSETRON INJ 2 MG/ML 2 ML VIAL ONE (10:56)
[2022-10-05] MEDS ORDERED: GLYCOPYRROLATE 0.2 MG/ML VIAL ONE (10:57)
--- NOTE | 2022-10-05 10:57 | Operative Report ---
PG Post Operative Report Pre & Post Diagnosis Operation Date: 10/05/22 10:30 Pre-Op Diagnosis: Degenerative Joint Disease Right Knee Post-Op Diagnosis: Degenerative Joint Disease Right Knee I identified the patient and participated in the time-out.: Yes Procedure Operation Date: 10/05/22 10:30 Actual Procedures p Right Total Knee Arthroplasty(Right) - Yusuf Pendleton DO Surgeon Yusuf Pendleton DO Commodity Supervisor Yusuf Nuñez PA-C Estimated Blood Loss 20 Findings Consistent with Post-Op Diagnosis Specimens Right femoral tibial bone Description of Procedure Implants used: I used a Barbi Persona total knee arthroplasty system with a size 9 standard femur, F tibia, 34 oval patella, and a size 10 medial congruent polyethylene bearing. All components were cemented in place with Biomet cement. Drake arrived [facility] for the above procedure. He was seen in the preoperative holding area and the operative extremity was identified and signed. He was given a preoperative antibiotic, TXA, a spinal anesthetic and an adductor nerve block. He was taken back to the operating room and laid on the table in supine position. He was given basic sedation. The operative knee was then prepped and draped in sterile fashion. A timeout was done, and the patient and the operative extremity was properly identified. A midline incision was made directly over the patella. Dissection was taken down to the extensor mechanism. A subvastus arthrotomy was used. The medial retinaculum was released and the fat pad was mostly excised. The knee was flexed and the ACL, PCL, and meniscus were removed. A drill was sent down the center of the femoral canal followed by an intramedullary samuel. Off that samuel a distal femoral cutting block was placed. 9 mm was resected off the distal femur at 5 of valgus. A posterior referencing AP sizing guide was then placed on the distal femur. The femur measured to be a size 9. 2 drill holes were placed in 3 of external rotation. A 4-in-1 cutting block was then impacted into place. Anterior, posterior, and chamfer cuts were then made. The proximal tibia was then exposed. An external tibial alignment guide was placed. A tibial cut guide was then anchored in place and the proximal tibia was then resected. The posterior aspect of the knee was then opened up and any additional meniscus fragments and osteophytes were removed. The tibia measured to be a size F. The tibial plate was then placed in the appropriate rotation and the tibia was drilled and punched. Trial components were then placed. I used a size 10 medial congruent polyethylene insert. The knee was brought through a full range of motion and felt to be stable. The peg holes for the femoral component were then drilled. The patella was then everted and 9 mm was resected off the posterior aspect of the patella. The patella measured to be a size 34 oval. 3 peg holes were then drilled. A trial patella was placed. The knee was once again brought through a full range of motion and felt to be stable. Trial components were then removed. The surrounding soft tissues were injected with 100 cc of an orthopedic pain control cocktail. All components were then cemented into place with Biomet cement. The final polyethylene insert was then snapped into place. Once cement was dry the tourniquet was deflated. Hemostasis was obtained. A dilute betadyne lavage was then done for 3 minutes. The joint was then irrigated with normal saline solution. The subvastus arthrotomy was then closed with #1 Vicryl suture. The skin was closed with 2-0 Vicryl, 3-0V lock suture, and tai. A soft compressive dressing was placed. He was then transferred to a hospital bed and taken to the postanesthesia care unit in stable condition. He tolerated the procedure well. Yusuf Nuñez PA-C, was present for the entire procedure. He was critical for patient positioning, prepping, draping, retraction exposure, wound closure and application of sterile dressing. I attest to the content of the Intraoperative Record and any orders documented therein. Any exceptions are noted below.
--- NOTE | 2022-10-05 12:05 | Anesthesiology Progress Note ---
Date of Service October 05, 2022 Anesthesia Post Procedure Vital Signs Vital Signs: Temp Pulse Pulse Resp BP Pulse Ox O2 Del Method 10/05/22 11:55 71 15 95/65 L 93 Nasal Cannula 10/05/22 11:45 68 19 99/64 L 93 10/05/22 11:35 80 17 99/59 L 97 Oxymask 10/05/22 11:27 36.2 C L 89 19 110/59 L 96 Oxymask 10/05/22 08:38 37.2 C 105 H 22 121/64 97 Room Air O2 Flow Rate 10/05/22 11:55 2 10/05/22 11:45 10/05/22 11:35 5 10/05/22 11:27 5 10/05/22 08:38 Pain Intensity Right Knee: Pain Intensity: 8 Transfer of Care Handoff Completed per policy Notes Mental Status: alert / awake / arousable Patient Amnestic to Procedure: Yes Nausea / Vomiting: adequately controlled Pain: adequately controlled Airway Patency, RR, SpO2: stable & adequate BP & HR: stable & adequate Hydration State: stable & adequate Anesthetic Complications: no major complications apparent
[2022-10-05] MEDS ORDERED: ALBUTEROL HFA 8 GM INHALER INH PRN (12:28)
[2022-10-05] MEDS ORDERED: FLUTICASONE PROPIONATE NA SPR 16 GM BTL PRN (12:28)
[2022-10-05] MEDS ORDERED: bisacodyL 10 MG SUPP PR PRN (12:28)
[2022-10-05] MEDS ORDERED: KETOCONAZOLE 2% CR 15 GM TUBE EXT PRN (12:28)
[2022-10-05] MEDS ORDERED: SODIUM CHLORIDE 0.9% 1000ML 1,000 ML IV SCH (12:28)
[2022-10-05] MEDS ORDERED: HYDROmorphone INJ 0.5 MG/0.5 ML SYR IV PRN (12:28)
[2022-10-05] MEDS ORDERED: MAGNESIUM HYDROXIDE SUSP 30 ML UDC PO PRN (12:28)
[2022-10-05] MEDS ORDERED: oxyCODONE HCL IR 5 MG TAB (IMMEDIATE RELEASE) PO PRN (12:28)
[2022-10-05] MEDS ORDERED: NALOXONE HCL 0.4 MG/1 ML VIAL/CARP IV PRN (12:28)
[2022-10-05] MEDS ORDERED: METOCLOPRAMIDE HCL INJ 5 MG/ML 2 ML VIAL IV PRN (12:28)
--- NOTE | 2022-10-05 12:47 | XRay Report ---
XR knee RT 1 or 2V routine CLINICAL HISTORY: Surgical Post Op TECHNIQUE: 2 views of the right knee were obtained. Comparison: Comparison is made to knee radiographs 08/08/2022 FINDINGS: Patient is status post total knee arthroplasty with expected postsurgical changes including soft tiss ue swelling and subcutaneous emphysema. No periarticular lucency or hardware fracture is seen. IMPRESSION: Expected postoperative appearance status post placement of total knee arthroplasty. ACT 112: Negative or not required by law. Electronically signed by: Sheng Cadet M.D. 10/05/2022 12:45 PM
[2022-10-05] MEDS: KETOROLAC TROMETHAMINE 15 MG/ML VIAL IV SCH ×2 (14:08→18:32)
[2022-10-05] MEDS: ACETAMINOPHEN 500 MG TAB PO SCH (17:03)
[2022-10-05] MEDS: ceFAZolin 2000MG 2,000 MG/15 ML SYR IV SCH (17:03)
[2022-10-05] MEDS ORDERED: SENNA 8.6 MG TAB PO SCH (21:00)
[2022-10-05] MEDS ORDERED: ATORVASTATIN 20 MG TAB PO SCH (21:00)
--- NOTE | 2022-10-05 21:18 | Ultrasound Report ---
ULTRASOUND RIGHT LOWER EXTREMITY VENOUS CLINICAL HISTORY: Right leg pain status post knee arthroplasty. COMPARISON STUDY: No priors. TECHNIQUE: Real-time, grayscale, and color Doppler sonography of the deep veins of the right lower ex tremity was performed from the inguinal crease to the calf. Compression and augmentation were utilize d. FINDINGS: There is no sonographic evidence of deep venous thrombosis identified in the right lower ex tremity. The common femoral, superficial femoral, and popliteal veins are patent and normally mayte sible. The greater saphenous vein and the profunda femoris vein at the junction with the common femor al vein are clear. The visualized calf veins are patent. IMPRESSION: There is no sonographic evidence of deep venous thrombosis identified in the right lower extremity. ACT 112: Negative or not required by law. Electronically signed by: Narciso Delgadillo M.D. 10/05/2022 9:16 PM
[2022-10-05] MEDS: APIXABAN 2.5 MG TAB PO SCH (21:22)
[2022-10-05] MEDS: DOCUSATE SODIUM 100 MG CAP PO SCH (21:22)
[2022-10-06] MEDS: KETOROLAC TROMETHAMINE 15 MG/ML VIAL IV SCH ×3 (00:21→11:25)
[2022-10-06] MEDS: ceFAZolin 2000MG 2,000 MG/15 ML SYR IV SCH (00:26)
[2022-10-06] MEDS: ACETAMINOPHEN 500 MG TAB PO SCH (07:18)
--- NOTE | 2022-10-06 07:51 | Orthopedic Progress Note ---
Date of Service October 06, 2022 Assessment & Plan (1) Status post right knee replacement: Overall is doing very well. Is not having much pain in the right knee. The ultrasound from last night was negative. He is on Eliquis for DVT prophylaxis. His dressing can be changed today before discharge. He will be seen by physical therapy today for ambulation and range of motion exercises. He can be discharged home later today. He will follow-up with orthopedics in 2 weeks. Brandie Juan was seen and examined at bedside this morning. Overall is doing fairly well. He is not having too much pain in the right knee. He was complaining of some calf pain last night and had a full ultrasound Doppler of his right lower extremity. The ultrasound was negative for DVT. He has been up and ambulating to the bathroom. He has no new complaints.. Review of Systems All systems reviewed & are unremarkable except as noted in HPI & below. Physical Exam On physical examination of the right knee, his leg is out full extension. He has active dorsiflexion plantarflexion of his right ankle. He is able to do a straight leg raise.. Results & Data Results & Data Laboratory Results . Diagnostic Findings Postoperative x-rays of the right knee show the prosthesis to be in anatomic alignment without any evidence of fracture, desiccation, or loosening.. PG Care Time/CCT Total # of Minutes Spent Total Time Spent with Patient: Total time spent is greater than 50% in coordination of care (as documented) at patient's floor/unit and/or counseling patient: Coding Level of Care Code 04367 Post Operative Follow-Up Diagnoses Status post right knee replacement Z96.651
--- NOTE | 2022-10-06 07:52 | Discharge Summary ---
Date of Service October 06, 2022 Admission HPI (Per Admitting) Drake is a pleasant 81-year-old male who has been dealing with chronic worsening right knee pain. X-rays and clinical examination have been diagnostic for advanced arthritis of the right knee. I have been giving him serial injections. Unfortunately, the injections are not helping anymore. 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 It is to the point where he cannot live with the knee pain the way it is anymore. He has elected to proceed with a right total knee arthroplasty. . Admission Exam (Per Admitting) On physical examination the right knee, he has a trace effusion. He is range of motion of 0 to 120 degrees. He has no instability. He has pain over the distal femoral condyle.. Principal Diagnosis Same as "Discharge Diagnosis" noted below under Discharge Instructions. Discharge Exam On physical examination of the right knee, his leg is out full extension. He has active dorsiflexion plantarflexion of his right ankle. He is able to do a straight leg raise.. Discharge Data Procedures Performed Operation Date: 10/05/22 10:30 Actual Procedures p Right Total Knee Arthroplasty(Right) - Yusuf Pendleton DO Ordered Studies 10/05/22 05:00 US - OR guided needle placemen Routine 10/05/22 20:22 US venous doppler LE RT Urgent Hospital Course (1) Status post right knee replacement: On October 05, [address] [facility] and underwent a right knee replaced without complication. He had a general anesthetic. Postoperatively he was started on Eliquis for DVT prophylaxis and transferred to the general orthopedic floors. His hospital course was relatively uneventful. Overnight, he was complaining of some right calf pain. An ultrasound was done of his right lower extremity and it was negative. On postop day #1 he was doing fairly well. His vital signs were stable and his pain was well controlled. He was able to participate well with physical therapy doing ambulation and range of motion exercises. He was then discharged home. He will follow-up with orthopedics in 2 weeks. PG Care Time/CCT Total # of Minutes Spent Total Time Spent with Patient: Total time spent is greater than 50% in coordination of care (as documented) at patient's floor/unit and/or counseling patient: Discharge Plan Discharge Items Patient Disposition: Home - Home Health Services Reason For Visit: Degenerative Joint Disease Right Knee Discharge Diagnosis: Right knee replacement Activity: Per Instructions section Non-emergency contact: Surgeon Call non-emergency contact if: your wound has increased redness and your wound has increased drainage Follow-up/Referrals: Alex Melchor DO [Primary Care Provider] - Diet: Regular Addtl Attending Provider Instructions: Activity and Therapy Recommendations: * If you are using [facility] then therapy will be provided at your home until they feel you have accomplished all of your goals. * If you are using [facility] then Physical Therapy will be provided until they feel you are ready to start Outpatient Physical Therapy. * If you are not using home therapy then Outpatient Physical Therapy should start about 3-5 days from your day of surgery. Therapy will last about 6-10 weeks * It is important not to put a pillow under your knee when you are relaxing or sleeping. It is just as important to make sure you are getting your knee perfectly straight as it is to regain your knee bend. * You were shown a series of exercises in the hospital. Do these exercises three times each day including the exercises you were shown in physical therapy. * Get up and walk several times each day. For the first four weeks, try not to stand or walk for more than one hour at a time. If you do stand or walk for more than one hour, you will not hurt anything, but your leg will likely swell. * As you feel comfortable, you may change from the walker or crutches to a cane and then to independent walking. Medications: * Narcotic You will likely be sent home from the hospital with a prescription for the narcotic pain medication that worked best throughout your stay. * Aspirin Most patients will be required to take Aspirin 81mg twice a day for 6 weeks after surgery. This is obtained [id number] and a prescription is not necessary. * Other medications may be prescribed for specific circumstances. If you have any questions, please call the office at . * Resume previous home medications unless otherwise instructed TEDs/Elastic Stockings: The white elastic stockings help limit swelling and prevent blood clots from forming in your legs.~ The more you wear them, the more they work. Wear them for six weeks. Dressing Care: The dressing can be changed after physical therapy on postop day #1. Daily dry dressing changes for a few days, especially if the incision is still draining some. If the incision is not draining then you may leave the tai open to air. If there is a little bit of drainage or if the tai are getting stuck on your clothing then cover the incision with a dry dressing. The tai will be removed at your 2 week follow-up appointment. Showering: You may shower 5 days from the day of surgery as long as the incision is no longer draining. You may shower with the tai exposed. Let soapy water run over the tai and pat them dry. Do not scrub or soak the incision. Things To Watch For: * Drainage from the incision site that occurs more than one week after your surgery. * Increased redness at the incision site. * Fever above 102 degrees Fahrenheit. * Unusual chest pain or shortness of breath. * Call [facility] at with any of the above problems Follow-Up Visit: Follow-up with Dr. Pendleton's PA (Yusuf Nuñez) 2-3 weeks after your day of surgery. He will remove your tai and answer any questions. If you have any additional questions or concerns, Dr Pendleton is usually in the office at the same time and will be available An appointment was probably scheduled when you signed-up for surgery in the office. If you have any questions call Office Instructions: More detailed instructions as well as Frequently Asked Questions were provided in a folder by our office when you signed-up for surgery. Please review these instructions when you get home. If you have any further questions or concerns, please feel free to call the office at [phone] Pending Studies at Discharge: No Stand-Alone Forms: My [facility], Smoking Cessation Medications and DC Order Prescriptions: New oxycodone-acetaminophen 5-325 mg tablet 1 tab PO Q6H PRN (Reason: pain) Qty: 30 0RF Continued Imbruvica 420 mg tablet 420 mg PO QAM atorvastatin 20 mg Tablet 20 mg PO PM Benadryl Itch Stopping 1-0.1 % Cream 1 applic TOPICAL QID PRN (Reason: Itching) ascorbic acid (vitamin C) [Vitamin C] 500 mg Tablet 500 mg PO QAM ketoconazole 2 % Cream 1 applic TOPICAL DAILY PRN (Reason: Itching) terazosin 10 mg Capsule 10 mg PO QAM finasteride 5 mg Tablet 5 mg PO QAM Centrum Silver 400-250 mcg Tablet,Chewable 1 tab PO QDL omeprazole 20 mg Tablet,Disintegrat, Delay Rel 20 mg PO QAM fluticasone propionate [Flonase Allergy Relief] 50 mcg/actuation Luther,Suspension 2 spray INTRANASAL DAILY PRN (Reason: Congestion) albuterol sulfate 90 mcg/actuation HFA aerosol inhaler 1 puffs INH QID PRN (Reason: shortness of breath or wheezing) Qty: 8.5 0RF Eliquis 2.5 mg Tablet 2.5 mg PO BID Discharge Orders: Discharge Order (Routine); Ordered 10/06/22 Ordered By: Yusuf Pendleton Admission Data Admit Date/Time: 10/05/22 11:26 Attending Provider: Yusuf Pendleton Admit Provider: Yusuf Pendleton Primary Care Provider: Alex Melchor
[2022-10-06] MEDS ORDERED: dexAMETHasone 4 MG TAB PO SCH (08:00)
[2022-10-06] MEDS: DOCUSATE SODIUM 100 MG CAP PO SCH (08:25)
[2022-10-06] MEDS: APIXABAN 2.5 MG TAB PO SCH (08:25)
[2022-10-06] MEDS ORDERED: MULTIVITAMIN TAB PO SCH (09:00)
[2022-10-06] MEDS ORDERED: TERAZOSIN HCL 5 MG CAP PO SCH (09:00)
[2022-10-06] MEDS ORDERED: FINASTERIDE 5 MG TAB PO SCH (09:00)
== END 2022-10-06 13:23 | disposition home health service (06) ==
LOC: ASU 08:06 → PACUINP 08:06 → 3E 14:46

== ENCOUNTER 2024-02-09 11:45 | Inpatient (IN) ==
--- OUTSIDE RECORDS SUMMARY | 2024-02-09 11:48 | External Medical Summary ---
Author Name Unknown Address Unknown Organization K01:[facility] [address] [place] [address] Laboratory Report Ordering Provider Test Date Status JOSE CASILLAS 01/07/2024 11:23:39 Final Observation Date Value Abnormality Reference (Units ) Status [facility] 01/07/2024 11:23:39 217 <=250 (U/L ) Final Performing Location [facility] [address] [place] [id number]
--- OUTSIDE RECORDS SUMMARY | 2024-02-09 11:48 | External Medical Summary | Summary of Care ---
Author Name Unknown Organization [facility] Address [address] [place] [address] Phone [phone] Care Team Providers Care Delicatessen Store Manager Name Role Phone Alex Melchor Primary Care Provider Reason for Visit * Reason Comments Follow Up Encounter Details Date Type Department Care Team (Late st Contact Info) Description 11/04/2023 2:00 PM EST Office Visit Hematology/Oncology [facility] [address] [facility] [place] [address] Adin Dow MD [address] [facility] [place] [address] CLL (chronic lymphocytic leukemia) ([facility])* Allergies Active Allergy Reactions Criticality Noted Date Comments Niacin Flushing Low 10/25/1997 Pseudoephedrine Hcl Other (Please comment) Low 05/18 Urinary Retention documented as of this encounter (statuses as of 11/04/2023) Medications Medication Sig Dispensed Refills Start Date End Date Status CENTRUM SILVER OR TABS once daily 0 12/06/2004 Active VITAMIN C 1000 MG OR TABS 1-2 tablets daily 0 12/06/2004 Active meclizine (ANTIVERT) 25 MG TabletIndications:M eniere disorder, left Take 1 Tab by mouth 3 times a day as needed for Dizziness. 30 Tab 1 01/24/2017 Active Ondansetron HCl 4 MG Oral Tablet (Zofran)Indications :Gastroesophageal reflux disease with esophagitis, unspecified whether hemorrhage Take 1 Tab by mouth every 6 hours as needed for Nausea. 60 Tab 3 08/30/2021 Active Fluticasone Propionate 50 MCG/ACT Nasal Suspension (Flonase)Indication s:Chronic rhinitis Administer into nostril 1 [place] in the morning. 48 g 5 04/12/2022 Active Additional Information Patient not taking.Reported on 04/25/2023 Triamcinolone Acetonide 0.1 % External Ointment (Aristocort)Indicat ions:LSC (lichen simplex chronicus) Apply twice daily to arms as needed for itch 15 g 0 08/27/2022 Active Sleep Aid 50 MG/30ML Oral Liquid (diphenhydrAMINE HCl) Take 30 mL by mouth as needed. As needed at bedtime. 0 Active Atorvastatin Calcium 20 MG Oral Tablet (Lipitor)Indication s:Aortic valve stenosis, unspecified etiology,Dyslipidem ia, goal LDL below 100 TAKE ONE TABLET BY MOUTH DAILY 90 Tablet 3 05/02/2023 Active Metoprolol Succinate ER 25 MG Oral Tablet Extended Release 24 Hour (toPROL XL)Indications:Atri al fibrillation, unspecified type (HCC) Take 1 Tablet by mouth in the morning. 90 Tablet 3 05/08/2023 Active Apixaban 5 MG Oral Tablet (Eliquis)Indication s:Longstanding persistent atrial fibrillation (HCC) Take 1 Tablet by mouth in the morning and 1 Tablet before bedtime. 180 Tablet 3 05/08/2023 Active Finasteride 5 MG Oral Tablet (Proscar) TAKE 1 TABLET BY MOUTH ONCE DAILY 90 Tablet 1 09/03/2023 Active Omeprazole 20 MG Oral Capsule Delayed Release (PriLOSEC)Indicatio ns:Gastroesophageal reflux disease with esophagitis, unspecified whether hemorrhage TAKE 1 CAPSULE BY MOUTH ONCE DAILY 90 Capsule 1 09/18/2023 Active Ibrutinib 420 MG Oral TabletIndications:C LL (chronic lymphocytic leukemia) (HCC) TAKE 1 TABLET BY MOUTH IN THE MORNING 30 Tablet 5 09/25/2023 09/24/2024 Active Albuterol Sulfate HFA 108 (90 Base) MCG/ACT Inhalation Aerosol SolutionIndications :Bronchitis, complicated Inhale 2 Puffs by mouth every 6 hours as needed for Cough, Shortness of Breath or Wheezing. 18 g 2 10/19/2023 Active Amoxicillin-Pot Clavulanate 875-125 MG Oral Tablet (Augmentin) Take 1 Tablet by mouth in the morning and 1 Tablet before bedtime. 28 Tablet 0 10/22/2023 Active predniSONE 10 MG Oral Tablet (Deltasone) Take 6 tab daily x 3 days, then 4 tab daily x 3 days, 3 tab daily x 3 days, 2 tab daily x 3 days, then 1 tab daily x 3 days. 48 Tablet 0 10/22/2023 Active Additional Information Patient not taking.Reported on 11/04/2023 Terazosin HCl 10 MG Oral Capsule TAKE ONE CAPSULE BY MOUTH AT BEDTIME 90 Capsule 3 10/28/2023 Active documented as of this encounter (statuses as of 11/04/2023) Active Problems Problem Noted Date Diagnosed Date Thrombocytopenia 04/25/2023 Gastroesophageal reflux disease with esophagitis 04/25/2023 Chronic obstructive pulmonary disease 04/25/2023 Chronic systolic (congestive) heart failure 02/16 Diverticulosis of large intestine without hemorr jose 02/28/2023 Overweight (BMI 25.0-29.9) 02/28/2023 Myogenic ptosis of bilateral eyelids 02/28/2023 Persistent atrial fibrillation 01/08/2022 Schatzki's ring of distal esophagus 08/14/2018 GERD with esophagitis 08/13/2017 CLL (chronic lymphocytic leukemia) 01/12/2017 Asymptomatic bilateral carotid artery stenosis 0 02/02/2015 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 Meniere disorder 01/09/2016 02/28/2023 Hx of basal cell carcinoma 11/03/2015 0 03/24/2020 Overview: Hx BCC R midhelix 08/2015 Historical. RBBB (right bundle branch block) 02/02/2015 03/01/2023 Carotid bruit 01/15/2014 02/28/2023 Nonallergic rhinitis 05/20/2012 020 Overview: Acute. Aortic valve sclerosis 12/12/201108/26 Overview: See echo report 11/2011 H ZOSTER NEURALGIA 07/25/2011 0 Overview: Acute. Dyslipidemia, goal LDL below 100 11/15/2009 02/28/2023 ADVANCE DIRECTIVE INFORMATION 10/04/2006 02/28/2023 Overview: Yes, Patient instructed to provide copy of advance directive for provider to review and to be scanned into Electronic Medical Record Conjunctivitis 05/23/2004 02/10/2018 DIVERTICULOSIS OF COLON 05/11/200202/16 PURE HYPERCHOLESTEROLEM 10/18 Overview: Per Lipid Taxonomy. documented as of this encounter (statuses as of 11/04/2023) Immunizations Name Administration Dates Next Due COVID-19 mRNA, LNP-s, No Pre serve, 2-Dose Series (Moderna) 01/28/2021,12/18/2020 COVID-19, mRNA, LNP-s, PF, B ooster, 100mcg/0.5mg (Moderna) 12/18/2021 H1N1 2009 Influenza, IM 11/15/2009 Pneumococcal Conjugate Vacc, 13 Valent (Prevnar) 06/30/2015 Pneumococcal Polysaccharide PPV23 (Pneumovax) 07/01/2014 Season Influenza, Quad, PF, Adjuvanted, 65+ Yrs, IM (FLUAD) 09/07/2020 Seasonal Influenza, PF, 6 M & above, IM , (FluLaval or Fluzone) 09/10/2018,08/13/2017 Seasonal Influenza, Quadriva lent Hd (Fluzone Hd) 08/22/2023,08/16/2022,08/30/2021 Seasonal Influenza, Quadriva lent, No Preserve, IM 08/29/2016,08/30/2015 Seasonal Influenza, Split, I IV3, With Preserve, Inj 08/10/2014,08/17/2013,08/11/2012,08/23,08/18/2010,08/04/2009,08/23/2008 ,08/28/2007,09/26/2006 Seasonal Influenza, Trivalen t, Adjuvanted, 65+ yrs 08/24/2019 TDAP (age 10 and older)(Boostrix) 12/15/2012 Varicella Zoster Vaccine (Adult) 05/11/2008 Zoster Vaccine Recombinant (Shingrix) 08/19/2020 ,06/20/2020 documented as of this encounter Social History Tobacco Use Types Packs/Day Years Used Date Smoking Tobacco: Never Smokeless Tobacco: Never Comments:no passive smoke at home Alcohol Use Standard Drinks/Week Comments Yes 0 (1 standard drink = 0.6 oz pur e alcohol) occasional beer or wine PHQ-2 Answer Date Recorded PHQ Adult Total Score 0 04/25/2023 Hunger Vital Sign Answer Date Recorded Worried About Running Out of Food in the Last Ye ar Never true 09/07/2020 Ran Out of Food in the Last Year Never true 09/07/2020 Sex and Gender Information Value Date Recorded Sex Assigned at Male 12/22/2019 9:22 AM EST Gender Identity Male 12/22/2019 9:22 AM EST Sexual Orientation Straight 12/22/2019 9: 22 AM EST Job Start Date Occupation Industry Not on file Not on file Not on file documented as of this encounter Last Filed Vital Signs Vital Sign Reading Time Taken Comments Blood Pressure 125/68 11/04/2023 2:05 PM EST Pulse 93 11/04/2023 2:05 PM EST Temperature 37.3 C (99.1 F) 11/04/2023 2:05 PM ES T Respiratory Rate - - Oxygen Saturation 96% 11/04/2023 2:05 PM EST Inhaled Oxygen Concentration - - Weight 75.7 kg (166 lb 14.4 oz) 11/04/2023 2:05 PM EST Height - - Body Mass Index 27.77 10/22/2023 10:55 AM EST documented in this encounter Progress Notes * Adin Dow MD - 11/04/2023 2:21 PM EST Outpatient Consult Note Data Source: Patient, Epic record. Data Source: Patient, Epic record. 11/04/2023 2:21 PM Drake Pagan [id number] 83 year old Patient Encounter: HEMATOLOGY[facility]COLOGY [facility] Cancer Diagnosis: Chronic lymphocytic leukemia Current Treatment: On ibrutinib started on 11/01/2020 Previous Treatment: None Oncologic History : 82 year old male who is referred for evaluation of lymphocytosis and [address]st [address]. Caceres on 07/19/2016. He had a CBC with April 24, 2016 which showed WBC 23.88 absolute lymphocyte count 17.1 9K per UL, absolute neutrophils 5.25K per UL, absolute monos 0.96K per UL, absolute eos 0.48K per UL. hemoglobin 14.6 hematocrit 42.6% and platelet count 171,000, his PT and PTT were within normal range. He had a repeat CBC with differential on June 25, 2016 which showed WBC 23.52 hemoglobin 15 hematocrit 43.5 platelet count 163,000 absolute lymphs 16.0 9K per UL, absolute monos 1.75K per UL, absolute eos 0.79K per UL, reactive lymphs present. 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 The CD38 and [place]-70 expression detected is considered an unfavorable prognostic sign. Interval History: He is issues with the baldemar for the ibrutinib and currently taking ibrutinib on every other day basis. Overall clinically he is stable without any new symptoms complain. Denies any headache, dizziness, chest pain, palpitation, abdominal pain, nausea, vomiting, fever, night sweats, weight loss. LABS/IMAGING: Results for orders placed or performed in visit on 10/22/23 LD Result Value Ref Range LD 222 <=250 U/L LIPID PANEL WITH DIRECT LDL IF TG IS HIGH Result Value Ref Range Triglycerides 56 <=174 mg/dL Cholesterol 113 <200 mg/dL HDL Cholesterol 41 >39 mg/dL Non-HDL Cholesterol 72 <=159 mg/dL LDL Cholesterol 61 <=129 mg/dL MAGNESIUM Result Value Ref Range Magnesium 2.1 1.5 - 2.6 mg/dL VITAMIN B12 Result Value Ref Range Vitamin B12 1,514 (H) 232 - 1,245 pg/mL [id number], QN Result Value Ref Range Djypl-0-Xodhzsphknt QN 254 (H) 83 - 199 mg/dL COMPREHENSIVE METABOLIC PANEL Result Value Ref Range BUN 16 6 - 20 mg/dL Creatinine 1.0 0.6 - 1.2 mg/dL Estimated Glomerular Filtration Rate 72 >=60 mL/min Sodium 139 135 - 146 mmol/L Potassium 4.2 3.5 - 5.1 mmol/L Chloride 105 98 - 107 mmol/L CO2 26 22 - 32 mmol/L Anion Gap 8 7 - 15 mmol/L Glucose 101 70 - 120 mg/dL Albumin 3.6 (L) 3.8 - 5.0 g/dL AST 33 10 - 50 U/L Alkaline Phosphatase 114 35 - 130 U/L Bilirubin, Total 1.2 <=1.2 mg/dL Calcium 9.3 8.4 - 10.2 mg/dL Protein 6.4 6.0 - 8.3 g/dL ALT 12 10 - 50 U/L CBC Result Value Ref Range WBC 7.76 4.00 - 10.80 K/uL RBC 4.82 4.50 - 5.25 M/uL HGB 13.4 (L) 14.0 - 16.8 g/dL HCT 40.4 40.0 - 48.4 % MCV 83.8 82.0 - 99.5 fL MCH 27.8 27.0 - 34.0 pg MCHC 33.2 32.0 - 36.0 g/dL RDW 13.6 11.5 - 15.5 % PLT 120 (L) 140 - 400 K/uL MPV 10.6 6.6 - 11.1 fL DIFFERENTIAL, AUTOMATED Result Value Ref Range WBC 7.76 4.00 - 10.80 K/uL Neutrophils % 53.4 40.0 - 75.0 % Lymphocytes % 33.9 18.0 - 42.0 % Monocytes % 10.3 1.0 - 11.0 % Eosinophils % 1.8 0.0 - 6.0 % Basophils % 0.6 0.0 - 2.0 % Absolute Neutrophils 4.14 1.80 - 7.70 K/uL Absolute Lymphocytes 2.63 1.00 - 4.80 K/ul Absolute Monocytes 0.80 0.00 - 1.10 K/uL Absolute Eosinophils 0.14 0.00 - 0.70 K/uL Absolute Basophils 0.05 0.00 - 0.20 K/uL ALBUMIN / CREATININE RATIO, URINE Result Value Ref Range Albumin, Random Urine 5.96 mg/dL Creatinine, Random Urine 202 mg/dL Albumin / Creatinine Ratio, Urine 30 (H) <30 mg/g Creat *Note: Due to a large number of results and/or encounters for the requested time period, some results have not been displayed. A complete set of results can be found in Results Review. All his blood counts are stable and within normal range with normalization of the lymphocyte count. REVIEW OF SYSTEMS: General: No Fever, chills, night sweats, or weight loss. HEENT: No change in visual acuity, blurred or double vision. No epistaxis, facial pain, nasal discharge or change in hearing. Denies dysphagia, no muscosal ulceration, or sores noted. Cardiovascular: No chest pain, SCHNEIDER, or palpitations Respiratory: No shortness of breath, cough, hemoptysis, or pleuritic chest pain Gastrointestinal: No abdominal pain, nausea, vomiting, diarrhea, rectal pain or bleeding Genitourinary: Denies Hematuria or dysuria Musculoskeletal: No bone pain Skin: No skin rash or lesions noted Neurologic: No numbness, weakness, neuropathic pain or change in cognitive function Psychiatric: No vegetative signs of depression Endocrine: No symptoms of hypothyroidism or hyperglycemia Hematologic: No bleeding or lymph nodes noted As mentioned above, all of the systems were reviewed in full and are unremarkable. Past Medical History: Diagnosis Date Aortic valve sclerosis 12/12/2011 Benign neoplasm of colon 07/01/2012 COLONOSCOPY FLEXIBLE PROXIMAL DIAGNOSTIC performed by Segundo Walden MD at ENDOSCOPY [facility] [place], [facility] shows adenomatous polyps repeat in 1 yea Chronic systolic (congestive) heart failure (HCC) 03/01/2023 Diverticulosis of colon 05/11/2002 Diverticulosis of large intestine without hemorrhage 02/28/2023 Dyslipidemia, goal LDL below 100 11/15/2009 ERECTILE DYSFUNCTION 05/02/2006 GERD with esophagitis 08/13/2017 H ZOSTER NEURALGIA 07/25/2011 Herpes zoster 06/2011 Had shingles vaccine 04/2008 HYPERTROP PROSTATE W/O URIN OB 09/27/2003 Myogenic ptosis of bilateral eyelids 02/28/2023 Overweight (BMI 25.0-29.9) 02/28/2023 Schatzki's ring of distal esophagus 08/14/2018 Current Outpatient Medications Medication Sig Dispense Refill CENTRUM SILVER OR TABS once daily 0 VITAMIN C 1000 MG OR TABS 1-2 tablets daily 0 meclizine (ANTIVERT) 25 MG Tablet Take 1 Tab by mouth 3 times a day as needed for Dizziness. 30 Tab1 Ondansetron HCl 4 MG Oral Tablet (Zofran) Take 1 Tab by mouth every 6 hours as needed for Nausea. 60 Tab 3 Fluticasone Propionate 50 MCG/ACT Nasal Suspension (Flonase) Administer into nostril 1 [place] in themorning. (Patient not taking: Reported on 04/25/2023) 48 g 5 Triamcinolone Acetonide 0.1 % External Ointment (Aristocort) Apply twice daily to arms as needed for itch 15 g 0 Sleep Aid 50 MG/30ML Oral Liquid (diphenhydrAMINE HCl) Take 30 mL by mouth as needed. As needed at bedtime. Atorvastatin Calcium 20 MG Oral Tablet (Lipitor) TAKE ONE TABLET BY MOUTH DAILY 90 Tablet 3 Metoprolol Succinate ER 25 MG Oral Tablet Extended Release 24 Hour (toPROL XL) Take 1 Tablet by mouth in the morning. 90 Tablet 3 Apixaban 5 MG Oral Tablet (Eliquis) Take 1 Tablet by mouth in the morning and 1 Tablet before bedtime. 180 Tablet 3 Finasteride 5 MG Oral Tablet (Proscar) TAKE 1 TABLET BY MOUTH ONCE DAILY 90 Tablet 1 Omeprazole 20 MG Oral Capsule Delayed Release (PriLOSEC) TAKE 1 CAPSULE BY MOUTH ONCE DAILY 90 Capsule 1 Ibrutinib 420 MG Oral Tablet TAKE 1 TABLET BY MOUTH IN THE MORNING 30 Tablet 5 Albuterol Sulfate HFA 108 (90 Base) MCG/ACT Inhalation Aerosol Solution Inhale 2 Puffs by mouth every 6 hours as needed for Cough, Shortness of Breath or Wheezing. 18 g 2 Amoxicillin-Pot Clavulanate 875-125 MG Oral Tablet (Augmentin) Take 1 Tablet by mouth in the morning and 1 Tablet before bedtime. 28 Tablet 0 predniSONE 10 MG Oral Tablet (Deltasone) Take 6 tab daily x 3 days, then 4 tab daily x 3 days, 3 tab daily x 3 days, 2 tab daily x 3 days, then 1 tab daily x 3 days. (Patient not taking: Reported on 11/04/2023) 48 Tablet 0 Terazosin HCl 10 MG Oral Capsule TAKE ONE CAPSULE BY MOUTH AT BEDTIME 90 Capsule 3 No current facility-administered medications for this visit. Social History Tobacco Use Smoking status: Never Smokeless tobacco: Never Tobacco comments: no passive smoke at home Vaping Use Vaping Use: Never used Substance Use Topics Alcohol use: Yes Comment: occasional beer or wine Drug use: No Review of patient's allergies indicates: Allergen Reactions Niacin Flushing Sudafed [Pseudoephedrine Hcl] Other (Please comment) Urinary Retention PHYSICAL EXAMINATION: General Appearance: Healthy appearing patient in no acute distress BP 125/68 (BP Site: Right Arm, BP Position: Sitting, BP Cuff Size: Regular) | Pulse 93 | Temp 37.3 C (99.1 F) | Wt 75.7 kg (166 lb 14.4 oz) | SpO2 96% | BMI 27.77 kg/m | BSA 1.86 m Vitals reviewed. HEENT: No oral or pharyngeal masses, ulceration or thrush noted, no sinus tenderness. Neck is supple with no thyromegaly or JVD noted. Lymph Nodes: No lymphadenopathy noted in the occipital, pre and post auricular, cervical, supra andinfraclavicular, axillary, epitrochlear, inguinal, and popliteal region. Lungs/Thorax: Clear to auscultation, no accessory muscles of respiration being used. Heart: Regular rate and rhythm, normal S1, S2 Abdomen: Soft, nontender, bowel sounds present, no appreciable hepatosplenomegaly, no palpable masses Extremeties: Good pulses bilaterally, no peripheral edema. ASSESSMENT: 83-year-old male with history of chronic lymphocytic leukemia was diagnosed in 04/2016, CD 38 and [place] 70 were detected which is considered unfavorable prognostic sign. Ig VH was unmutated. On the FISH 71% cells were positive for trisomy 12 only. Currently is taking ibrutinib started in 10/2020. Overall clinically he is stable without any new symptoms physical examination is unremarkable. All his blood counts are in acceptable range. There is a financial issue and he is running out of the baldemar for medication. Pharmacy and the patient are working on this issue and hopefully it will be resolved and patient will continue getting the medication. Because of limited supply currently he is taking ibrutinib on every other day basis. Discussed with the patient about diagnosis reviewed all the available blood test result with him. PLAN: Continue ibrutinib. Hopefully he will receive his medicine soon. He will continue blood test done on every other month basis. He will return clinic for follow-up in 4 months with CBC, CMP and LDH. The patient voiced understanding of all of the above. All questions and concerns were addressed in an apparently satisfactory manner. Adin Dow MD (This note was completed using the dictation program Fluency Direct. As such, there may be misspellings, word substitutions, or other variations that should not change the essence of the clinical content of this encounter note. If there is need for further clarification, please direct questions to me.) documented in this encounter Nursing Notes * Drew Lewis MED ASSIST - 11/04/2023 2:05 PM EST Patient identified by name and date of . Do you have any concerns about pain management for today's visit? No Living Will or Advance Directive for Health Care as noted on problem list. My [facility] is a way you can talk to your provider online through e-mail. Would you like to sign up? I can activate it for you? ALREADY ACTIVE BP 125/68 (BP Site: Right Arm, BP Position: Sitting, BP Cuff Size: Regular) | Pulse 93 | Temp 37.3 C (99.1 F) | Wt 75.7 kg (166 lb 14.4 oz) | SpO2 96% | BMI 27.77 kg/m | BSA 1.86 m Patient was instructed to not get up on the exam table/exam chair until directed and assisted by their provider; patient is to remain seated in the chair/ wheelchair/ exam table/ exam chair for fall prevention and safety reasons. Patient is aware to have assistance to step down off exam table/exam chair with personnel. Patient voiced full comprehension of instructions. Patient stated that he is not feeling good, and it started yesterday. documented in this encounter Plan of Treatment Upcoming Encounters Date Type Department Care Team (Late st Contact Info) Description 12/09/2023 12:20 PM EST Office Visit [address] [place] [address] Alex Melchor DO [address] [place] [address] 12/25/2023 9:00 AM EST Pharmacy Pharmacy Hematology Oncology [facility] [address] [place] [address] [facility], [facility] Hem[facility]Onc [address] [place] [address] 01/07/2024 11:10 AM EST Laboratory Laboratory, [facility] [address] [place] [id number] [place] [address] [place] [id number] 02/10/2024 11:00 AM EDT Laboratory Laboratory, [facility] [address] [place] [id number] [place] [address] [place] [address] 02/18/2024 2:00 PM EDT Office Visit Hematology/Oncology [facility] [address] [facility] [place] [address] Adin Dow MD [address] [facility] [place] [address] 04/24/2024 11:00 AM EDT Cardiac Studies Cardiac Studies, [facility] [address] [place] [address] 04/30/2024 11:00 AM EDT Office Visit Cardiology, [facility] [address] [place] [address] Cary Lee PA-C [address] [place] [address] 10/23/2024 11:30 AM EST Office Visit Otolaryngology [facility] [address] [place] [address] Alexy Link DO [address] [place] [address] 10/29/2024 11:15 AM EST Office Visit Dermatology [facility] [address] [facility] [place] [address] Lyle Lowery MD [address] [facility] [place] [address] Scheduled Orders Name Type Priority Associated Diagnoses Orde r Schedule CBC WITH WBC DIFFERENTIAL Lab Routine CLL (chronic lymphocytic leukemia) ([facility]) Expected: 03/02/2024, Expires: 09/07/2024 COMPREHENSIVE METABOLIC PANEL Lab Routine CLL (chronic lymphocytic leukemia) ([facility]) Expected: 03/02/2024, Expires: 09/07/2024 LD Lab Routine CLL (chronic lymphocytic leukemia) ([facility]) Expected: 03/02/2024, Expires: 09/07/2024 Health Maintenance Due Date Last Done Comments DTaP,Tdap,and Td Vaccines (2 - Td or Tdap) 12/15/2022 12/15/2012, 10/19/2004, 01/21/1997 COVID-19 Vaccine ( season) 2023 12/18/2021, 01/28/2021, 12/18/2020 Depression Screening 04/25/2024 04/25/2023 O2 ASSESSMENT COMPLETED IN PAST YEAR FOR COPD 09/23/2024 09/23/2023 Pneumococcal Vaccine: 65+ Years Completed 06/30/2015, 07/01/2014, 09/28/2004, Additional history exists Zoster Vaccines Completed 08/19/2020, 01/2020, 05/11/2008 Influenza Vaccine (FLU shot) Completed 03/2023, 08/16/2022, 08/30/2021, Additional history exists Alpha-1 Antitrypsin Completed 10/22/2023 GARDASIL-HPV IMMUNIZATION SERIES Aged Out No longer eligible based on patient's age to complete this topic Hepatitis B Aged Out No longer eligi ble based on patient's age to complete this topic MENINGOCOCCAL (MENACTRA/MENVEO) Aged Out No longer eligible based on patient's age to complete this topic documented as of this encounter Medical Devices Not on filedocumented as of this encounter Visit Diagnoses Diagnosis CLL (chronic lymphocytic leukemia) (HCC)- Primary Chronic lymphoid leukemia, without mention of having achieved remission documented in this encounter Advance Directives Latest Code Status on File Code Status Date Activated Date Inactivated Comments None 06/07/2005 2:26 PM 06/07/2005 2:26 PM Care Teams Delicatessen Store Manager Relationship Specialty Start Date End Date Alex Melchor DO [address] [place] [id number] PCP - General Family Medicine 12/17/19 documented as of this encounter"
--- OUTSIDE RECORDS SUMMARY | 2024-02-09 11:48 | External Medical Summary | Summary of Care ---
Author Name Unknown Organization [facility] Address [address] [facility] [address] Phone [phone] Care Team Providers Care [employer] English Teacher Name Role Phone Alex Melchor DO Primary Care Provider Reason for Visit * Reason Onset Date Comments Medication Refill 01/12/2024 Encounter Details Date Type Department Care Team (Late st Contact Info) Description 01/12/2024 Refill Family Practice [facility] [address] [place] [address] Alex Melchor DO [address] [place] [address] Allergies Active Allergy Reactions Criticality Noted Date Comments Niacin Flushing Low 10/25/1997 Pseudoephedrine Hcl Other (Please comment) Low 05/18 Urinary Retention documented as of this encounter (statuses as of 01/13/2024) Medications Medication Sig Dispensed Refills Start Date End Date Status CENTRUM SILVER OR TABS once daily 0 12/06/2004 Active VITAMIN C 1000 MG OR TABS 1-2 tablets daily 0 12/06/2004 Active meclizine (ANTIVERT) 25 MG TabletIndications:M eniere disorder, left Take 1 Tab by mouth 3 times a day as needed for Dizziness. 30 Tab 1 01/24/2017 Active Additional Information Patient not taking.Reported on 12/09/2023 Ondansetron HCl 4 MG Oral Tablet (Zofran)Indications :Gastroesophageal reflux disease with esophagitis, unspecified whether hemorrhage Take 1 Tab by mouth every 6 hours as needed for Nausea. 60 Tab 3 08/30/2021 Active Additional Information Patient not taking.Reported on 12/09/2023 Fluticasone Propionate 50 MCG/ACT Nasal Suspension (Flonase)Indication s:Chronic rhinitis Administer into nostril 1 [place] in the morning. 48 g 5 04/12/2022 [...] or Wheezing. 18 g 2 10/19/2023 Active Terazosin HCl 10 MG Oral Capsule TAKE ONE CAPSULE BY MOUTH AT BEDTIME 90 Capsule 3 10/28/2023 Active documented as of this encounter (statuses as of 01/13/2024) Active Problems Problem Noted Date Diagnosed Date HTN, goal below 140/90 12/09/2023 Thrombocytopenia 04/25/2023 Gastroesophageal reflux disease with esophagitis 04/25/2023 Chronic obstructive pulmonary disease 04/25/2023 Chronic systolic (congestive) heart failure 02/16 Diverticulosis of large intestine without hemorr jose 02/28/2023 Overweight (BMI 25.0-29.9) 02/28/2023 Myogenic ptosis of bilateral eyelids 02/28/2023 Persistent atrial fibrillation 01/08/2022 Schatzki's ring of distal esophagus 08/14/2018 CLL (chronic lymphocytic leukemia) 01/12/2017 Asymptomatic bilateral carotid artery stenosis 0 02/02/2015 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 Meniere disorder 01/09/2016 02/28/2023 Hx of basal cell carcinoma 11/03/2015 0 03/24/2020 Overview: Hx BCC R midhelix 08/2015 Historical. RBBB (right bundle branch block) 02/02/2015 03/01/2023 Carotid bruit 01/15/2014 02/28/2023 Nonallergic rhinitis 05/20/2012 05/07/2 020 Overview: Acute. Aortic valve sclerosis 12/12/201108/26 Overview: See echo report 11/2011 H ZOSTER NEURALGIA 07/25/2011 Overview: Acute. Dyslipidemia, goal LDL below 100 11/15/2009 02/28/2023 ADVANCE DIRECTIVE INFORMATION 10/04/2006 02/28/2023 Overview: Yes, Patient instructed to provide copy of advance directive for provider to review and to be scanned into Electronic Medical Record Conjunctivitis 05/23/2004 02/10/2018 DIVERTICULOSIS OF COLON 05/11/200202/16 PURE HYPERCHOLESTEROLEM 10/18 Overview: Per Lipid Taxonomy. documented as of this encounter (statuses as of 01/13/2024) Immunizations Name Administration Dates Next Due COVID-19 [...] on file documented as of this encounter Miscellaneous Notes * Telephone Encounter - Dorie Bragg RPh - 01/13/2024 12:48 PM EST Refused Prescriptions: Disp Refills Terazosin HCl 10 MG Oral Capsule 90 Cap*3 Sig: Take 1 Capsule by mouth at bedtime.Refused By: DORIE BRAGGReason for Refusal: Too soonReason for RefusalComment: 1 year supply sent 10/28/23 documented in this encounter Plan of Treatment Upcoming Encounters Date Type Department Care Team (Late st Contact Info) Description 02/10/2024 11:00 AM EDT Laboratory Laboratory, [facility] [address] [place] [address] [phone] [place] [facility] [address] [place] [address] 02/18/2024 2:00 PM EDT Office Visit Hematology/Oncology [facility] [address] [place] [phone] Adin Dow MD [address] [place] [address] 04/14/2024 9:00 AM EDT Pharmacy Pharmacy Hematology Oncology [facility] [address] [place] [address] [facility] Hem/Onc [address] [place] [address] 04/24/2024 11:00 AM EDT Cardiac Studies Card[facility] Studies, [facility] [place] [address] 04/30/2024 11:00 AM EDT Office Visit Cardiology, [facility] [address] [facility] [place] [address] Cary Lee PA-C 132 [facility] [place] [address] 10/23/2024 11:30 AM EST Office Visit Otolaryngology [facility] [address] [facility] [place] [address] Alexy Link, [address] [place] [address] 10/29/2024 11:15 AM EST Office Visit Dermatology [facility] [address] [place] [address] Lyle Lowery MD [address] [place] [address] Health Maintenance Due Date Last Done Comments DTaP,Tdap,and Td Vaccines (2 - Td or Tdap) 12/15/2022 12/15/2012, 10/19/2004, 01/21/1997 COVID-19 Vaccine (4 - 2022-24 season) 2023 12/18/2021, 01/28/2021, 12/18/2020 Depression Screening 04/25/2024 04/25/2023 O2 ASSESSMENT COMPLETED IN PAST YEAR FOR COPD 12/09/2024 12/09/2023 Albumin/Creatinine Ratio 10/22/2026 10/22/2023 Pneumococcal Vaccine: 65+ Years Completed 06/30/2015, 07/01/2014, [...] Not on filedocumented as of this encounter Advance Directives Latest Code Status on File Code Status Date Activated Date Inactivated Comments None 06/07/2005 2:26 PM 06/07/2005 2:26 PM Care Teams [employer] English Teacher Relationship Specialty Start Date End Date Alex Melchor DO [address] [place] [address] PCP - General Family Medicine 12/17/19 documented as of this encounter
--- OUTSIDE RECORDS SUMMARY | 2024-02-09 11:48 | External Medical Summary ---
Author Name Unknown Address Unknown Organization [facility] [address] [place] [address] Laboratory Report Ordering Provider Test Date Status JOSE CASILLAS 01/07/2024 11:23:39 Final Observation Date Value Abnormality Reference (Units ) Status BUN 01/07/2024 11:23:39 13 6-20 (mg/dL) Final Creatinine 01/07/2024 11:23:39 1.1 0.6-1.2 (mg/dL) Final Glomerular filtration rate/1.73 sq M.predicted [Volume Rate/Area] in Serum, Plasma or Blood by Creatinine-based formula (CKD-EPI) 01/07/2024 11:23:39 68 >=60 (mL/min) Final eGFR is calculated based on the CKD-EPI 2020 equation SODIUM 01/07/2024 11:23:39 142 135-146 (m mol/L) Final Potassium 01/07/2024 11:23:39 4.6 3.5-5.1 (m mol/L) Final Cl 01/07/2024 11:23:39 107 98-107 (mm ol/L) Final CO2 01/07/2024 11:23:39 25 22-32 (mmo l/L) Final Anion gap 01/07/2024 11:23:39 10 7-15 (mmol /L) Final Glucose 01/07/2024 11:23:39 89 70-120 (mg /dL) Final Albumin 01/07/2024 11:23:39 3.8 3.8-5.0 (g /dL) Final AST (Aspartate aminotransferase) 01/07/2024 11:23:39 21 10-50 (U/L) Fin al Alk Phos 01/07/2024 11:23:39 94 35-130 (U/ L) Final Bilirubin, Total 01/07/2024 11:23:39 0.9 <=1 .2 (mg/dL) Final Calcium 01/07/2024 11:23:39 9.3 8.4-10.2 ( mg/dL) Final Protein 01/07/2024 11:23:39 6.2 6.0-8.3 (g /dL) Final ALT (Alanine aminotransferase) 01/07/2024 11:23:39 5 Below low normal 10-50 (U/L) Final Performing Location [facility] [address] [facility] [address]
--- OUTSIDE RECORDS SUMMARY | 2024-02-09 11:48 | External Medical Summary | Summary of Care ---
Author Name Unknown Organization [facility] Address [address] [place] [address] Phone [phone] Care Team Providers Care Rental Counter Clerk Name Role Phone Alex Melchor Primary Care Provider Reason for Visit * Reason Comments Medication Management Encounter Details Date Type Department Care Team (Late st Contact Info) Description 01/08/2024 9:00 [facility] H[facility]ology Oncology [facility] [address] [place] [address] [facility] Hem/Onc [address] [place], [place] [id number] CLL (chronic lymphocytic leukemia) ([facility])* Allergies Active Allergy Reactions Criticality Noted Date Comments Niacin Flushing Low 10/25/1997 Pseudoephedrine Hcl Other (Please comment) Low 05/18 Urinary Retention documented as of this encounter (statuses as of 01/08/2024) Medications Medication Sig Dispensed Refills Start Date [...] (Flonase)Indication s:Chronic rhinitis Administer into nostril 1 [place] in the morning. 48 g 5 04/12/2022 [...] as of this encounter (statuses as of 01/08/2024) Active Problems Problem Noted Date Diagnosed Date [...] as of this encounter (statuses as of 01/08/2024) Resolved Problems Problem Noted Date Diagnosed Date [...] as of this encounter (statuses as of 01/08/2024) Immunizations Name Administration Dates Next Due COVID-19 [...] on file documented as of this encounter Progress Notes * Patricia Pagan, [facility] - 01/08/2024 8:54 AM EST MEDICATION THERAPY MANAGEMENT IBRUTINIB (IMBRUVICA) TREATMENT PROGRESS NOTE Drake Pagan [phone] Patient Phone Numbers Communication: Spoke to: Patient Treatment: Medication: Ibrutinib (Imbruvica) Indication: CLL Dose: 420mg daily Administration: with a full glass of water, +/- food Start Date: 11/01/20 Primary Forestry Technician/Oncologist: Dr. Dow Supportive Care Meds: Ondansetron Interval History: Pt states he will postpone rotator cuff surgery as orthopedic recommended knee surgery as higher priority States he has follow up with surgeon 10/2023 States he may defer surgery as issue not bothersome Ibrutinib held 09/30/22-10/11/22 for knee surgery No concerns, tolerating therapy well Changes to medication list since last visit? No Upcoming surgeries or procedures? Yes, rotator cuff surgery TBD Assessment and Plan: PLT stable at grade 1 thrombocytopenia Per PI, no dose adjustment for PLT > 50K Will monitor closely All other labs and BP stable Advised pt office will contact him if additional documents needed for [employer] financial assistance thatcan be brought to OV. Pt replied with understanding Continue current therapy and q2mo labs (next due with OV) Assessment of compliance: compliant Assessment of adverse effects attributed to drug therapy: Edema - absent Muscle pain/Cramps - absent Diarrhea/Constipation -absent Nausea/Vomiting - absent Bleeding - absent Rash/Pruritus - absent Hypertension - absent Dose adjustment needed based on lab or adverse drug reaction? No Follow up: 6 weeks OV/labs; 14 weeks MTM with labs Patricia Pagan, PharmD, BCOP Clinical Pharmacist, [facility] Oral Chemotherapy [facility] 01/08/2024, 11:08 AM Pertinent labs: Latest Reference Range & Units 08/12/23 10:59 10/22/23 11:31 01/07/24 11:23 WBC 4.00 - 10.80 K/uL 10.74 7.76 10.37 HGB 14.0 - 16.8 g/dL 14.5 13.4 (L) 13.6 (L) HCT 40.0 - 48.4 % 43.6 40.4 41.3 MCV 82.0 - 99.5 fL 84.0 83.8 83.9 PLT 140 - 400 K/uL 119 (L) 120 (L) 124 (L) Absolute Neutrophils 1.80 - 7.70 K/uL 5.23 4.14 4.78 Serum creatinine: 1.1 mg/dL 01/07/24 1123 Estimated creatinine clearance: 46.3 mL/min Latest Reference Range & Units 08/12/23 10:59 10/22/23 11:31 01/07/24 11:23 LD <=250 U/L 205 222 217 Latest Reference Range & Units 08/12/23 10:59 10/22/23 11:31 01/07/24 11:23 Albumin 3.8 - 5.0 g/dL 4.1 3.6 (L) 3.8 AST 10 - 50 U/L 22 33 21 ALT 10 - 50 U/L 11 12 5 (L) Alkaline Phosphatase 35 - 130 U/L 100 114 94 Bilirubin, Total <=1.2 mg/dL 1.2 1.2 0.9 10/24/2023 11/04/2023 12/09/2023 BP AND WT. Systolic 114 125 116 Diastolic 60 68 62 Time Spent on Encounter: 6 - 10 minutes Encounter Group: Hematology Encounter Interventions Item Category: Oral Chemotherapy Ibrutinib Problem/Rationale: Safety: Needs additional monitoring - Medication Requires monitoring Pharmacist Intervention(s): Lab monitoring and Toxicity monitoring Magnitude of Intervention: Monitoring with direction (Level 1) documented in this encounter Plan of Treatment Upcoming Encounters Date Type Department Care Team (Late st Contact Info) Description 02/10/2024 11:00 AM EDT Laboratory Laboratory, [facility] [address] [place] [phone] [place] [address] [place] [address] 02/18/2024 2:00 PM EDT Office [facility] [place] [address] [facility] [place] [phone] Adin Dow MD [address] [facility] [place] [address] 04/14/2024 9:00 AM EDT Pharmacy Pharmacy Hematology Oncology [facility] [address] [place] [address] [facility] Hem/Onc [address] [place] [address] 04/24/2024 11:00 AM EDT Cardiac Studies Cardiac Studies, [facility] [address] [place] [address] 04/30/2024 11:00 AM EDT Office Visit Cardiology, [facility] [address] [place] [address] Cary Lee PA-C [address] [place] [address] 10/23/2024 11:30 AM EST Office Visit Otolaryngology [facility] [address] [place] [address] Alexy Link DO [address] [place] [address] 10/29/2024 11:15 AM EST [facility] [place] [address] [facility] [place] [address] Lyle Lowery MD [address] [facility] [place] [address] Health Maintenance Due Date Last Done Comments DTaP,Tdap,and Td Vaccines (2 - Td or Tdap) 12/15/2022 12/15/2012, 10/19/2004, 01/21/1997 COVID-19 Vaccine ( - season) 2023 12/18/2021, 01/28/2021, 12/18/2020 Depression Screening [...] 2:26 PM 06/07/2005 2:26 PM Care Teams Rental Counter Clerk Relationship Specialty Start Date End Date Alex Melchor DO [address] [place] [address] PCP - General Family Medicine 12/17/19 documented as of this encounter
--- OUTSIDE RECORDS SUMMARY | 2024-02-09 11:48 | External Medical Summary | Summary of Care ---
Author Name Unknown Organization [facility] Address [address] [facility] [place] [address] Phone [phone] Care Team Providers Care Feed Mill Supervisor Name Role Phone Alex Melchor Primary Care Provider Reason for Visit * Reason Comments Outpatient Testing Encounter Details Date Type Department Care Team (Late st Contact Info) Description 01/07/2024 11:10 AM EST Laboratory Laboratory, [facility] 132 [facility] [place] [phone] [facility] [address] [place] [address] CLL (chronic lymphocytic leukemia) (HCC) Allergies Active Allergy Reactions Criticality Noted Date Comments Niacin Flushing Low 10/25/1997 Pseudoephedrine Hcl Other (Please comment) Low 05/18 Urinary Retention documented as of this encounter (statuses as of 01/07/2024) Medications Medication Sig Dispensed Refills Start Date [...] (Flonase)Indication s:Chronic rhinitis Administer into nostril 1 [place] in the morning. 48 g 5 04/12/2022 [...] as of this encounter (statuses as of 01/07/2024) Active Problems Problem Noted Date Diagnosed Date [...] as of this encounter (statuses as of 01/07/2024) Resolved Problems Problem Noted Date Diagnosed Date Resolved Date Chronic sinusitis 01/08/2022 02/28/2023 Thrombocytopenia 09/07/2020 01/08/2022 GERD with esophagitis 08/13/20172023 Overview: duplicate Hx of actinic keratosis 02/27/2017 050 05/2020 Overview: Historical. Meniere disorder 01/09/2016 02/28/2023 [...] as of this encounter (statuses as of 01/07/2024) Immunizations Name Administration Dates Next Due COVID-19 [...] on file documented as of this encounter Plan of Treatment Upcoming Encounters Date Type Department Care Team (Late st Contact Info) Description 01/08/2024 9:00 AM EST Pharmacy Pharmacy Hematology Oncology [place] [address] [place] [address] [facility], [facility] Clinic Hem/Onc [address] [place] [address] 02/10/2024 11:00 AM EDT Laboratory Laboratory, [facility] [address] [place] [phone] [place] [address] [place] [address] 02/18/2024 2:00 PM EDT Office Visit Hematology/Oncology [place] [address] [place] [phone] Adin Dow MD [address] [place] [address] 04/24/2024 11:00 AM EDT Cardiac Studies Cardiac Studies, [facility] [address] [place] [address] 04/30/2024 11:00 AM EDT Office Visit Cardiology, [facility] 132 [place] [address] Cary Lee PA-C [address] [place] [address] 10/23/2024 11:30 AM EST Office Visit [facility]ology [facility] [address] [facility] [place] [address] Alexy Link DO 132 [place] [address] 10/29/2024 11:15 AM EST Office Visit Dermatology [facility] [address] [facility] [place], [place] [address] Lyle Lowery MD [address] [facility] [place], [place] [address] Pending Results Name Type Priority Associated Diagnoses Date /Time LD Lab Routine CLL (chronic lymphocytic leukemia) ([facility]) 01/07/2024 11:23 AM EST COMPREHENSIVE METABOLIC PANEL Lab STAT CLL (chronic lymphocytic leukemia) ([facility]) 01/07/2024 11:23 AM EST Health Maintenance Due Date Last Done Comments [...] Not on filedocumented as of this encounter Procedures Procedure Name Priority Date/Time Associated Diagnosis Comments DIFFERENTIAL, AUTOMATED STAT 01/07/2024 11:23 AM EST CLL (chronic lymphocytic leukemia) (HCC) CBC STAT 01/07/2024 11:23 AM EST CLL (chronic lymphocytic leukemia) (HCC) CBC STAT 01/07/2024 11:23 AM EST CLL (chronic lymphocytic leukemia) (HCC) documented in this encounter Results * (ABNORMAL) DIFFERENTIAL, AUTOMATED (01/07/2024 11:23 AM EST) WBC 10.37 4.00 - 10.80 K/uL 01/07/2024 11:31 AM EST [facility] [place] [facility] Neutrophils % 46.1 40.0 - 75.0 % 01/07/2024 11:31 AM EST [facility] [place] [address] Lymphocytes % 45.2(H) 18.0 - 42.0 % 01/07/2024 11:31 AM EST [facility] [place] [facility] Monocytes % 7.1 1.0 - 11.0 % 01/07/2024 11:31 AM EST [facility] [place] [facility] Eosinophils % 1.0 0.0 - 6.0 % 01/07/2024 11:31 AM EST [facility] [place] [facility] Basophils % 0.6 0.0 - 2.0 % 01/07/2024 11:31 AM EST [facility] [place] [facility] Absolute Neutrophils 4.78 1.80 - 7.70 K/uL 01/07/2024 11:31 AM EST [facility] [place] [address] Absolute Lymphocytes 4.69 1.00 - 4.80 K/ul 01/07/2024 11:31 AM EST [facility] [place] [facility] Absolute Monocytes 0.74 0.00 - 1.10 K/uL 01/07/2024 11:31 AM EST [facility] [place] [facility] Absolute Eosinophils 0.10 0.00 - 0.70 K/uL 01/07/2024 11:31 AM EST [facility] [place] [facility] Absolute Basophils 0.06 0.00 - 0.20 K/uL 01/07/2024 11:31 AM EST [facility] [place] [facility] Blood Venous blood specimen / Unknown Venipuncture / Unknown 01/07/2024 11:23 AM EST 01/07/2024 11:23 AM EST Adin Dow MD LAB BLOOD [facility] [address] [place] [address] * (ABNORMAL) CBC (01/07/2024 11:23 AM EST) WBC 10.37 4.00 - 10.80 K/uL 01/07/2024 11:31 AM EST [facility] RBC 4.92 4.50 - 5.25 M/uL 01/07/2024 11:31 AM EST [facility] [place] [facility] HGB 13.6(L) 14.0 - 16.8 g/dL 01/07/2024 11:31 AM EST [facility] [place] [facility] HCT 41.3 40.0 - 48.4 % 01/07/2024 11:31 AM EST [facility] [place] [facility] MCV 83.9 82.0 - 99.5 fL 01/07/2024 11:31 AM EST [facility] [place] [facility] MCH 27.6 27.0 - 34.0 pg 01/07/2024 11:31 AM EST [facility] [place] [facility] MCHC 32.9 32.0 - 36.0 g/dL 01/07/2024 11:31 AM EST [facility] [place] [facility] RDW 14.4 11.5 - 15.5 % 01/07/2024 11:31 AM EST [facility] [place] [facility] PLT 124(L) 140 - 400 K/uL 01/07/2024 11:31 AM EST [facility] [place] [facility] MPV 9.7 6.6 - 11.1 fL 01/07/2024 11:31 AM EST [facility] [place] [facility] Blood Venous blood specimen / Unknown Venipuncture / Unknown 01/07/2024 11:23 AM EST 01/07/2024 11:23 AM EST Adin Dow MD LAB BLOOD ORDERA BLES [facility] [place] [address] [place] [address] documented in this encounter Visit Diagnoses Diagnosis CLL (chronic lymphocytic leukemia) (HCC) Chronic lymphoid leukemia, without mention of having achieved remission documented in this encounter Advance Directives Latest Code Status on File Code Status Date Activated Date Inactivated Comments None 06/07/2005 2:26 PM 06/07/2005 2:26 PM Care Teams Feed Mill Supervisor Relationship Specialty Start Date End Date Alex Melchor DO [address] [place] [address] PCP - General Family Medicine 12/17/19 documented as of this encounter
--- OUTSIDE RECORDS SUMMARY | 2024-02-09 11:48 | External Medical Summary | Summary of Care ---
Author Name Unknown Organization [facility] Address [address] [facility] [place] [address] Phone [phone] Care Team Providers Care Ski Lift Attendant Name Role Phone Luis Melchor DO Primary Care Provider Reason for Visit * Reason Comments eRx-Medication Refill Encounter Details Date Type Department Care Team (Late st Contact Info) Description 10/27/2023 Refill Family Practice [facility] [address] [place] [address] Luis Melchor DO [address] [place] [address] Allergies Active Allergy Reactions Criticality Noted Date Comments Niacin Flushing Low 10/25/1997 Pseudoephedrine Hcl Other (Please comment) Low 05/18 Urinary Retention documented as of this encounter (statuses as of 10/28/2023) Medications Medication Sig Dispensed Refills Start Date End Date Status CENTRUM SILVER OR TABS once daily 0 12/06/2004 Active VITAMIN C 1000 MG OR TABS 1-2 tablets daily 0 12/06/2004 Active meclizine (ANTIVERT) 25 MG TabletIndications :Meniere disorder, left Take 1 Tab by mouth 3 times a day as needed for Dizziness. 30 Tab 1 01/24/2017 Active Ondansetron HCl 4 MG Oral Tablet (Zofran)Indicatio ns:Gastroesophage al reflux disease with esophagitis, unspecified whether hemorrhage Take 1 Tab by mouth every 6 hours as needed for Nausea. 60 Tab 3 08/30/2021 Active Fluticasone Propionate 50 MCG/ACT Nasal Suspension (Flonase)Indicati ons:Chronic rhinitis Administer into nostril 1 [place] in the morning. 48 g 5 04/12/2022 Active Additional Information Patient not taking.Reported on 04/25/2023 Triamcinolone Acetonide 0.1 % External Ointment (Aristocort)Indic ations:LSC (lichen simplex chronicus) Apply twice daily to arms as needed for itch 15 g 0 08/27/2022 Active Sleep Aid 50 MG/30ML Oral Liquid (diphenhydrAMINE HCl) Take 30 mL by mouth as needed. As needed at bedtime. 0 Active Atorvastatin Calcium 20 MG Oral Tablet (Lipitor)Indicati ons:Aortic valve stenosis, unspecified etiology,Dyslipid emia, goal LDL below 100 TAKE ONE TABLET BY MOUTH DAILY 90 Tablet 3 05/02/2023 Active Metoprolol Succinate ER 25 MG Oral Tablet Extended Release 24 Hour (toPROL XL)Indications:At rial fibrillation, unspecified type (HCC) Take 1 Tablet by mouth in the morning. 90 Tablet 3 05/08/2023 Active Apixaban 5 MG Oral Tablet (Eliquis)Indicati ons:Longstanding persistent atrial fibrillation (HCC) Take 1 Tablet by mouth in the morning and 1 Tablet before bedtime. 180 Tablet 3 05/08/2023 Active Finasteride 5 MG Oral Tablet (Proscar) TAKE 1 TABLET BY MOUTH ONCE DAILY 90 Tablet 1 09/03/2023 Active Omeprazole 20 MG Oral Capsule Delayed Release (PriLOSEC)Indicat ions:Gastroesopha geal reflux disease with esophagitis, unspecified whether hemorrhage TAKE 1 CAPSULE BY MOUTH ONCE DAILY 90 Capsule 1 09/18/2023 Active Ibrutinib 420 MG Oral TabletIndications :CLL (chronic lymphocytic leukemia) (HCC) TAKE 1 TABLET BY MOUTH IN THE MORNING 30 Tablet 5 09/25/2023 09/24/20 24 Active Albuterol Sulfate HFA 108 (90 Base) MCG/ACT Inhalation Aerosol SolutionIndicatio ns:Bronchitis, complicated Inhale 2 Puffs by mouth every [...] 3 days. 48 Tablet 0 10/22/2023 Active Terazosin HCl 10 MG Oral Capsule TAKE ONE CAPSULE BY MOUTH AT BEDTIME 90 Capsule 3 10/28/2023 Active Terazosin HCl 10 MG Oral Capsule TAKE ONE CAPSULE BY MOUTH AT BEDTIME 90 Capsule 3 08/24/2022 10/28/20 23 Discontinued documented as of this encounter (statuses as of 10/28/2023) Active Problems Problem Noted Date Diagnosed Date [...] as of this encounter (statuses as of 10/28/2023) Resolved Problems Problem Noted Date Diagnosed Date Resolved Date Chronic sinusitis 01/08/2022 02/28/2023 Thrombocytopenia 09/07/2020 01/08/2022 Hx of actinic keratosis 02/27/2017 05/0 05/2020 [...] as of this encounter (statuses as of 10/28/2023) Immunizations Name Administration Dates Next Due COVID-19 mRNA, LNP-s, No Pre serve, 2-Dose Series (Moderna) 01/28/2021,12/18/2020 COVID-19, mRNA, LNP-s, PF, B ooster, 100mcg/0.5mg (Moderna) 12/18/2021 H1N1 2009 Influenza, IM 11/15/2009 Pneumococcal Conjugate Vacc, 13 Valent (Prevnar) 06/30/2015 Pneumococcal Polysaccharide PPV23 (Pneumovax) 07/01/2014 SEASONAL INFLUENZA, PF, 6 M & Above, IM , (FLULAVAL or FLUZONE) 09/10/2018,08/13/2017 Season Influenza, Quad, PF, Adjuvanted, 65+ Yrs, IM (FLUAD) 09/07/2020 Seasonal Influenza, Quadriva lent Hd (Fluzone Hd) [...] encounter Miscellaneous Notes * Telephone Encounter - Shant Templeton RPh - 10/28/2023 10:23 AM ESTSigned Prescriptions: Disp Refills Terazosin HCl 10 MG Oral Capsule 90 Cap*3 Sig: TAKE ONE CAPSULE BY MOUTH AT BEDTIMEAuthorizing Provider: LUIS MELCHOR User: SHANT TEMPLETON----- documented in this encounter Plan of Treatment Upcoming Encounters Date Type Department Care Team (Late st Contact Info) Description 11/04/2023 2:00 PM EST Office Visit Hematology/Oncology [facility] [place] [address] [facility] [place] [address] Adin Dow MD [address] [place] [address] 12/09/2023 12:20 PM EST Office Visit Family Practice [facility] [address] [place] [address] Luis Melchor, [address] [place] [address] 12/25/2023 9:00 AM EST Pharmacy Pharmacy Hematology Oncology [facility] [address] [place] [address] [facility] Hem/Onc [address] [place] [address] 04/24/2024 11:00 AM EDT Cardiac Studies Cardiac Studies, [facility] [address] [place] [address] 04/30/2024 11:00 AM EDT Office Visit Cardiology, [facility] [address] [place] [address] Cary Lee PA-C [address] [place] [address] 10/23/2024 11:30 AM EST Office Visit Otolaryngology [facility] [address] [place] [address] Alexy Link, [address] [place] [address] 10/29/2024 11:15 AM EST Office Visit [facility]at[facility] [address] [place] [address] Lyle Lowery MD [address] [facility] [place] [address] Health Maintenance Due Date Last Done Comments DTaP,Tdap,and Td Vaccines (2 - Td or Tdap) 12/15/2022 12/15/2012, 10/19/2004, 01/21/1997 COVID-19 Vaccine (2022- season) 2023 12/18/2021, 01/28/2021, 12/18/2020 Depression Screening [...] 2:26 PM 06/07/2005 2:26 PM Care Teams Ski Lift Attendant Relationship Specialty Start Date End Date Luis Melchor DO [address] [place] [address] PCP - General Family Medicine 12/17/19 documented as of this encounter
--- OUTSIDE RECORDS SUMMARY | 2024-02-09 11:48 | External Medical Summary | Summary of Care ---
Author Name Unknown Organization [facility] Address [address] [place] [address] Phone [phone] Care Team Providers Care Memory Care Program Director Name Role Phone Alex Melchor DO Primary Care Provider Reason for Visit * Reason Comments Return Visit Pt here for 6 mo ret urn. Pt states he has had ongoing sinus infection with congestion. Blood tinged yellow nasal drg. Sx noted x 3 months. States he has dx of "chronic sinus condition in need of surgery for correction" per pt. Finished ceftin and prednisone taper last week per Dr. Link for this and augmentin prior in Oct 2023. Encounter Details Date Type Department Care Team (Late st Contact Info) Description 12/09/2023 12:20 PM EST Office Visit [facility] [address] [facility] [place] [address] Alex Melchor DO [address] [facility] [place] [address] Simple chronic bronchitis (HCC)*; Dyslipidemia, goal LDL below 70; Chronic systolic (congestive) heart failure (HCC); Persistent atrial fibrillation (HCC); Gastroesophageal reflux disease with esophagitis without hemorrhage; CLL (chronic lymphocytic leukemia) (HCC); Thrombocytopenia (HCC) Allergies Active Allergy Reactions Criticality Noted Date Comments Niacin Flushing Low 10/25/1997 Pseudoephedrine Hcl Other (Please comment) Low 05/18 Urinary Retention documented as of this encounter (statuses as of 12/09/2023) Medications Medication Sig Dispensed Refills Start Date End Date Status CENTRUM SILVER OR TABS once daily 0 12/06/2004 Active VITAMIN C 1000 MG OR TABS 1-2 tablets daily 0 12/06/2004 Active meclizine (ANTIVERT) 25 MG TabletIndications: Meniere disorder, left Take 1 Tab by mouth 3 times a day as needed for Dizziness. 30 Tab 1 01/24/2017 Active Additional Information Patient not taking.Reported on 12/09/2023 Ondansetron HCl 4 MG Oral Tablet (Zofran)Indication s:Gastroesophageal reflux disease with esophagitis, unspecified whether hemorrhage Take 1 Tab by mouth every 6 hours as needed for Nausea. 60 Tab 3 08/30/2021 Active Additional Information Patient not taking.Reported on 12/09/2023 Fluticasone Propionate 50 MCG/ACT Nasal Suspension (Flonase)Indicatio ns:Chronic rhinitis Administer into nostril 1 [place] in the morning. 48 g 5 04/12/2022 Active Additional Information Patient not taking.Reported on 04/25/2023 Triamcinolone Acetonide 0.1 % External Ointment (Aristocort)Indica tions:LSC (lichen simplex chronicus) Apply twice daily to arms as needed for itch 15 g 0 08/27/2022 Active Sleep Aid 50 MG/30ML Oral Liquid (diphenhydrAMINE HCl) Take 30 mL by mouth as needed. As needed at bedtime. 0 Active Atorvastatin Calcium 20 MG Oral Tablet (Lipitor)Indicatio ns:Aortic valve stenosis, unspecified etiology,Dyslipide mehdi, goal LDL below 100 TAKE ONE TABLET BY MOUTH DAILY 90 Tablet 3 05/02/2023 Active Metoprolol Succinate ER 25 MG Oral Tablet Extended Release 24 Hour (toPROL XL)Indications:Atr ial fibrillation, unspecified type (HCC) Take 1 Tablet by mouth in the morning. 90 Tablet 3 05/08/2023 Active Apixaban 5 MG Oral Tablet (Eliquis)Indicatio ns:Longstanding persistent atrial fibrillation (HCC) Take 1 Tablet by mouth in the morning and 1 Tablet before bedtime. 180 Tablet 3 05/08/2023 Active Finasteride 5 MG Oral Tablet (Proscar) TAKE 1 TABLET BY MOUTH ONCE DAILY 90 Tablet 1 09/03/2023 Active Omeprazole 20 MG Oral Capsule Delayed Release (PriLOSEC)Indicati ons:Gastroesophage al reflux disease with esophagitis, unspecified whether hemorrhage TAKE 1 CAPSULE BY MOUTH ONCE DAILY 90 Capsule 1 09/18/2023 Active Ibrutinib 420 MG Oral TabletIndications: CLL (chronic lymphocytic leukemia) (HCC) TAKE 1 TABLET BY MOUTH IN THE MORNING 30 Tablet 5 09/25/2023 Active Albuterol Sulfate HFA 108 (90 Base) MCG/ACT Inhalation Aerosol SolutionIndication s:Bronchitis, complicated Inhale 2 Puffs by mouth every 6 hours as needed for Cough, Shortness of Breath or Wheezing. 18 g 2 10/19/2023 Active Terazosin HCl 10 MG Oral Capsule TAKE ONE CAPSULE BY MOUTH AT BEDTIME 90 Capsule 3 10/28/2023 Active Amoxicillin-Pot Clavulanate 875-125 MG Oral Tablet (Augmentin) Take 1 Tablet by mouth in the morning and 1 Tablet before bedtime. 28 Tablet 0 10/22/2023 4 Discontinue d(Medicatio n List Clean Up) predniSONE 10 MG Oral Tablet (Deltasone) Take 6 tab daily x 3 days, then 4 tab daily x 3 days, 3 tab daily x 3 days, 2 tab daily x 3 days, then 1 tab daily x 3 days. 48 Tablet 0 11/22/2023 4 Discontinue d(Medicatio n List Clean Up) Cefuroxime Axetil 250 MG Oral Tablet (Ceftin) Take 1 Tablet by mouth in the morning and 1 Tablet before bedtime. 28 Tablet 0 11/22/2023 4 Discontinue d(Medicatio n List Clean Up) documented as of this encounter (statuses as of 12/09/2023) Active Problems Problem Noted Date Diagnosed Date [...] as of this encounter (statuses as of 12/09/2023) Resolved Problems Problem Noted Date Diagnosed Date [...] as of this encounter (statuses as of 12/09/2023) Immunizations Name Administration Dates Next Due COVID-19 [...] Date Smoking Tobacco: Never Smokeless Tobacco: Never Tobacco Cessation:Counseling Given: Not Answered Comments:no passive smoke at home Alcohol Use [...] Sign Reading Time Taken Comments Blood Pressure 116/62 12/09/2023 12:14 PM EST Pulse 95 12/09/2023 12:14 PM EST Temperature 36.4 C (97.6 F) 12/09/2023 12:[address] Respiratory Rate 16 12/09/2023 12:14 PM EST Oxygen Saturation 97% 12/09/2023 12:14 PM EST Inhaled Oxygen Concentration - - Weight 75.3 kg (166 lb) 12/09/2023 12:14 PM EST Height 164.5 cm (5' 4.75") 12/09/2023 12:[address] Body Mass Index 27.84 12/09/2023 12:14 PM EST documented in this encounter Progress Notes * Alex Melchor, DO - 12/09/2023 12:15 PM EST Images from the original note were not included. Assessment and Plan Simple chronic bronchitis (HCC) Mild elevation in Apha-1 Without overt symptoms, no SOB/SCHNEIDER Will monitor and follow Dyslipidemia, goal LDL below 70 Chronic systolic (congestive) heart failure (HCC) Ongoing management Consider SGLT-2 for treatment in future Persistent atrial fibrillation (HCC) Rate controlled But ongoing a fib Gastroesophageal reflux disease with esophagitis without hemorrhage CLL (chronic lymphocytic leukemia) (HCC) Thrombocytopenia (HCC) History of Present Illness Drake Pagan is a 83 year old male that presents for Return Visit (Pt here for 6 mo return. Pt states he has had ongoing sinus infection with congestion. Blood tinged yellow nasal drg. Sx noted x 3months. States he has dx of "chronic sinus condition in need of surgery for correction" per pt. Finished ceftin and prednisone taper last week per Dr. Link for this and augmentin prior in Oct 2023.) Presents in f/u today Having ongoing sinus congestion and Discharge but overall isn't feeling sick any longer Just completed his second course of abx And again, feels that it improved his symptoms but didn't resolve them Physical Exam Vitals: 12/09/23 1214 Temp: 36.4 C (97.6 F) Pulse: 95 Resp: 16 SpO2: 97% BP: 116/62 BMI: 27.83 Physical Exam Constitutional: Appearance: Normal appearance. HENT: Head: Normocephalic and atraumatic. Nose: Congestion and rhinorrhea present. Mouth/Throat: Pharynx: Posterior oropharyngeal erythema present. No oropharyngeal exudate. Eyes: Extraocular Movements: Extraocular movements intact. Pupils: Pupils are equal, round, and reactive to light. Cardiovascular: Rate and Rhythm: Normal rate and regular rhythm. Pulmonary: Effort: Pulmonary effort is normal. Breath sounds: Normal breath sounds. Neurological: General: No focal deficit present. Mental Status: He is alert and oriented to person, place, and time. Psychiatric: Mood and Affect: Mood normal. Behavior: Behavior normal. Wrap-Up Follow-up: Return in about 6 months (around 06/08/2024). | Check-out note: Every other with Thiede Time: Total time today was 45 minutes excluding any time spent in the performance of separately billed services. documented in this encounter Plan of Treatment Upcoming Encounters Date Type Department Care Team (Late st Contact Info) Description 12/25/2023 9:00 AM EST Pharmacy Pharmacy Hematology Oncology [address] [address] [facility] Hem/Onc [address] [place] [address] 01/07/2024 11:10 AM EST Laboratory [facility], [facility] [address] [facility] [phone] [place] [address] [place] [address] 02/10/2024 11:00 AM EDT Laboratory Laboratory, [facility] [address] [facility] [place] [phone] [place] [facility] [place] [address] 02/18/2024 2:00 PM EDT Office Visit Hematology/Oncology [facility] [address] [facility] [place] [address] Adin Dow MD [address] [facility] [place] [address] 04/24/2024 11:00 AM EDT Cardiac Studies Cardiac Studies, [facility] [place] [address] 04/30/2024 11:00 AM EDT Office Visit Cardiology, [facility] 132 [facility] [place] [address] Cary Lee [facility]C [address] [facility] [place] [address] 10/23/2024 11:30 AM EST Office Visit Otolaryngology [facility] [address] [facility] [place] [address] Alexy Link DO 132 [facility] [place] [address] 10/29/2024 11:15 AM EST Office Visit Dermatology [facility] [address] [facility] [place] [address] Lyle Lowery MD 200 [facility] [place] [address] Health Maintenance Due Date Last Done Comments [...] as of this encounter Visit Diagnoses Diagnosis Simple chronic bronchitis (HCC)- Primary Simple chronic bronchitis Dyslipidemia, goal LDL below 70 Other and unspecified hyperlipidemia Chronic systolic (congestive) heart failure (HCC) Persistent atrial fibrillation (HCC) Atrial fibrillation Gastroesophageal reflux disease with esophagitis without hemorrhage CLL (chronic lymphocytic leukemia) (HCC) Chronic lymphoid leukemia, without mention of having achieved remission Thrombocytopenia (HCC) Thrombocytopenia, unspecified documented in this encounter Advance Directives Latest Code Status on File Code Status Date Activated Date Inactivated Comments None 06/07/2005 2:26 PM 06/07/2005 2:26 PM Care Teams Memory Care Program Director Relationship Specialty Start Date End Date Alex Melchor DO [address] [place] [address] PCP - General Family Medicine 12/17/19 documented as of this encounter
--- OUTSIDE RECORDS SUMMARY | 2024-02-09 11:48 | External Medical Summary ---
Author Name Unknown Address Unknown Organization [id number] [address] [place] [id number] Laboratory Report Ordering Provider Test Date Status JOSE CASILLAS 01/07/2024 11:23:39 Final Observation Date Value Abnormality Reference (Units ) Status SYNC LEUKOCYTES IN BLOOD BY AUTOMATED COUNT 01/07/2024 11:23:39 10.37 4.00-10.80 (K/uL) Final Segs 01/07/2024 11:23:39 46.1 40.0-75.0 (%) Final Lymphs % 01/07/2024 11:23:39 45.2 Above high normal 18.0-42.0 (%) Final Monos 01/07/2024 11:23:39 7.1 1.0-11.0 (%) Final Eosinophils 01/07/2024 11:23:39 1.0 0.0-6.0 (%) Final Basos 01/07/2024 11:23:39 0.6 0.0-2.0 (%) Final Absolute Segs 01/07/2024 11:23:39 4.78 1.80-7.70 (K/uL) Final Lymphs, absolute 01/07/2024 11:23:39 4.69 1.00-4.80 (K/ul) Final Monos, Abs 01/07/2024 11:23:39 0.74 0.00-1.10 (K/uL) Final Eos, Abs 01/07/2024 11:23:39 0.10 0.00-0.70 (K/uL) Final Basos, Abs 01/07/2024 11:23:39 0.06 0.00-0.20 (K/uL) Final Performing Location [facility] [address] [place] [id number]
--- OUTSIDE RECORDS SUMMARY | 2024-02-09 11:48 | External Medical Summary ---
Author Name Unknown Address Unknown Organization [id number] [address] [place] [id number] Laboratory Report Ordering Provider Test Date Status JOSE CASILLAS 01/07/2024 11:23:39 Final Observation Date Value Abnormality Reference (Units ) Status WBC, Total 01/07/2024 11:23:39 10.37 4.00-10.8 0 (K/uL) Final RBC 01/07/2024 11:23:39 4.92 4.50-5.25 (M/uL) Final Hemoglobin 01/07/2024 11:23:39 13.6 Below low normal 14 .0-16.8 (g/dL) Final HCT 01/07/2024 11:23:39 41.3 40.0-48.4 (%) Final MCV 01/07/2024 11:23:39 83.9 82.0-99.5 (fL) Final MCH 01/07/2024 11:23:39 27.6 27.0-34.0 (pg) Final MCHC 01/07/2024 11:23:39 32.9 32.0-36.0 (g/dL) Final RDW 01/07/2024 11:23:39 14.4 11.5-15.5 (%) Final Platelets 01/07/2024 11:23:39 124 Below low normal 140 -400 (K/uL) Final MPV 01/07/2024 11:23:39 9.7 6.6-11.1 ( fL) Final Performing Location [facility] [address] [place] [id number]
--- OUTSIDE RECORDS SUMMARY | 2024-02-09 11:49 | External Medical Summary | Summary of Care ---
Author Name Unknown Organization [facility] Address [address] [place] [address] Phone [phone] Care Team Providers Care Reflector Driller And Deburrer Name Role Phone Alex Melchor Primary Care Provider Reason for Visit * Reason Comments Medication Management Encounter Details Date Type Department Care Team (Late st Contact Info) Description 10/23/2023 9:00 AM [facility] Pharmacy Pharmacy Hematology Oncology [facility] [place] [address] [place] [address] [facility] [place] Hem/Onc [address], [place] [id number] CLL (chronic lymphocytic leukemia) ([facility])* Allergies Active Allergy Reactions Criticality Noted Date Comments Niacin Flushing Low 10/25/1997 Pseudoephedrine Hcl Other (Please comment) Low 05/18 Urinary Retention documented as of this encounter (statuses as of 10/23/2023) Medications Medication Sig Dispensed Refills Start Date [...] (Flonase)Indication s:Chronic rhinitis Administer into nostril 1 [place] in the morning. 48 g 5 04/12/2022 Active Additional Information Patient not taking.Reported on 04/25/2023 Terazosin HCl 10 MG Oral Capsule TAKE ONE CAPSULE BY MOUTH AT BEDTIME 90 Capsule 3 08/24/2022 Active Triamcinolone Acetonide 0.1 % External Ointment (Aristocort)Indicat [...] or Wheezing. 18 g 2 10/19/2023 Active Doxycycline Hyclate 100 MG Oral CapsuleIndications: Acute maxillary sinusitis, recurrence not specified Take 1 Capsule by mouth in the morning and 1 Capsule before bedtime. Do all this for 7 days. Take for 7 days. 14 Capsule 0 10/19/2023 10/26/2023 Active Amoxicillin-Pot Clavulanate 875-125 MG Oral Tablet [...] 3 days. 48 Tablet 0 10/22/2023 Active documented as of this encounter (statuses as of 10/23/2023) Active Problems Problem Noted Date Diagnosed Date Thrombocytopenia 04/25/2023 Gastroesophageal reflux disease with esophagitis 04/25/2023 Chronic obstructive pulmonary disease 04/25/2023 Chronic systolic (congestive) heart failure 02/16 Diverticulosis of large intestine without hemorr jose 02/28/2023 Overweight (BMI 25.0-29.9) 02/28/2023 Myogenic ptosis of bilateral eyelids 02/28/2023 Longstanding persistent atrial fibrillation 12/20 Schatzki's ring of distal esophagus 08/14/2018 GERD with esophagitis 08/13/2017 CLL (chronic lymphocytic leukemia) 01/12/2017 Asymptomatic bilateral carotid artery stenosis 0 02/02/2015 BPH with obstruction/lower urinary tract symptom s 08/27/2014 Aortic valve stenosis 01/15/2014 Dyslipidemia 11/03/2009 Overview: Per Lipid Taxonomy. 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 documented as of this encounter (statuses as of 10/23/2023) Resolved Problems Problem Noted Date Diagnosed Date [...] as of this encounter (statuses as of 10/23/2023) Immunizations Name Administration Dates Next Due COVID-19 [...] this encounter Progress Notes * Patricia Pagan, [facility] - 10/23/2023 11:16 AM EST MEDICATION THERAPY MANAGEMENT IBRUTINIB (IMBRUVICA) TREATMENT PROGRESS NOTE Drake Valentinolena [phone] Patient Phone Numbers Communication: Spoke to: Patient Treatment: Medication: Ibrutinib (Imbruvica) Indication: CLL Dose: 420mg daily Administration: with a full glass of water, +/- food Start Date: 11/01/20 Primary Finishing Machine Tender/Oncologist: Dr. Dow Supportive Care Meds: Ondansetron Interval History: Pt states he will postpone rotator cuff surgery as orthopedic recommended knee surgery as higher priority States he has follow up with surgeon 10/2023 States he may defer surgery as issue not bothersome Ibrutinib held 09/30/22-10/11/22 for knee surgery Per PCP [facility] 10/19/23, pt prescribed doxycycline for acute sinusitis Per ENT [facility] 10/22/23, pt prescribed Aumgentin and prednisone for sinusitis States he mailed pt portion for financial assistance to [facility] 10/22/23 No concerns, tolerating therapy well Changes to medication list since last visit? Yes, doxycycline, Augmentin, prednisone - no DDIs Upcoming surgeries or procedures? Yes, rotator cuff surgery TBD Assessment and Plan: PLT stable at grade 1 thrombocytopenia Per PI, no dose adjustment for PLT > 50K Will monitor closely All other labs and BP stable Advised pt office will contact him if additional documents needed for [facility] financial assistance thatcan be brought to [facility]. Pt replied with understanding Continue current therapy and q2mo labs (unless extended by Dr. Dow at [facility] 11/04/23) Assessment of compliance: compliant Assessment of adverse effects attributed to drug therapy: Edema - absent Muscle pain/Cramps - absent Diarrhea/Constipation -absent Nausea/Vomiting - absent Bleeding - absent Rash/Pruritus - absent Hypertension - absent Dose adjustment needed based on lab or adverse drug reaction? No Follow up: 2 weeks OV; 2 months MTM with labs Patricia Pagan, PharmD, BCOP Clinical Pharmacist, [facility] Oral Chemotherapy [facility] 10/23/2023, 11:37 AM Pertinent labs: Latest Reference Range & Units 06/05/23 10:59 08/12/23 10:59 10/22/23 11:31 WBC 4.00 - 10.80 K/uL 11.41 (H) 10.74 7.76 HGB 14.0 - 16.8 g/dL 14.1 14.5 13.4 (L) HCT 40.0 - 48.4 % 43.2 43.6 40.4 MCV 82.0 - 99.5 fL 84.0 84.0 83.8 PLT 140 - 400 K/uL 122 (L) 119 (L) 120 (L) Absolute Neutrophils 1.80 - 7.70 K/uL 5.14 5.23 4.14 Latest Reference Range & Units 05/25/20 14:41 04/08/23 10:09 10/22/23 11:31 Vitamin B12 232 - 1,245 pg/mL 1,073 1,690 (H) 1,514 (H) Serum creatinine: 1 mg/dL 10/22/23 1131 Estimated creatinine clearance: 51.6 mL/min Latest Reference Range & Units 06/05/23 10:59 08/12/23 10:59 10/22/23 11:31 LD <=250 U/L 223 205 222 Latest Reference Range & Units 06/05/23 10:59 08/12/23 10:59 10/22/23 11:31 Albumin 3.8 - 5.0 g/dL 4.1 4.1 3.6 (L) AST 10 - 50 U/L 26 22 33 ALT 10 - 50 U/L 16 11 12 Alkaline Phosphatase 35 - 130 U/L 108 100 114 Bilirubin, Total <=1.2 mg/dL 1.3 (H) 1.2 1.2 06/18/2023 09/23/2023 10/19/2023 BP AND WT. Systolic 153 118 110 Diastolic 79 62 64 Time Spent on Encounter: 6 - 10 minutes Encounter Group: Hematology Encounter Interventions Item Category: Oral Chemotherapy Ibrutinib Problem/Rationale: Safety: Needs additional monitoring - Medication Requires monitoring Cost/Insurnce Issues - Cannot afford medication product Pharmacist Intervention(s): Drug Interaction Screen, Lab monitoring, and Toxicity monitoring Magnitude of Intervention: Monitoring with direction (Level 1) documented in this encounter Plan of Treatment Upcoming Encounters Date Type Department Care Team (Late st Contact Info) Description 10/24/2023 9:30 AM EST Office Visit Cardiology, [facility] [address] [place] [address] [address] Cary Lee PA-C [address] [place] [address] 11/04/2023 2:00 PM EST Office Visit Hematology/Oncology [facility] [address] [facility] [address] Adin Dow MD [address] [facility] [place], [place] [address] 12/09/2023 12:20 PM EST Office Visit Family Practice [facility] [address] [place] [address] Alex Melchor, DO [address] [place] [address] 12/25/2023 9:00 AM EST Pharmacy Pharmacy Hematology Oncology [facility] [place] [address] [place] [address] [facility] [place] Hem/Onc [facility] [place] [address] 10/23/2024 11:30 AM EST Office Visit Otolaryngology [facility] [address] [place] [address] Alexy Link, DO [address] [place] [address] 10/29/2024 11:15 AM EST Office Visit Dermatology [facility] [address] [facility] [place], [place] [address] Lyle Lowery MD [address] [facility] [place], [place] [address] Health Maintenance Due Date Last Done Comments Alpha-1 Antitrypsin 1958 DTaP,Tdap,and Td Vaccines (2 - Td or Tdap) 12/15/2022 12/15/2012, 10/19/2004, 01/21/1997 COVID-19 Vaccine ( - 2022- season) 2023 12/18/2021, 01/28/2021, 12/18/2020 Depression Screening 04/25/2024 04/25/2023 O2 ASSESSMENT COMPLETED IN PAST YEAR FOR COPD 09/23/2024 09/23/2023 Pneumococcal Vaccine: 65+ Years Completed 06/30/2015, 07/01/2014, 09/28/2004, Additional history exists Zoster Vaccines Completed 08/19/2020, 01/2020, 05/11/2008 Influenza Vaccine (FLU shot) Completed 03/2023, 08/16/2022, 08/30/2021, Additional history exists GARDASIL-HPV IMMUNIZATION SERIES Aged Out No longer [...] 2:26 PM 06/07/2005 2:26 PM Care Teams Reflector Driller And Deburrer Relationship Specialty Start Date End Date Alex Melchor DO [address] [place] [address] PCP - General Family Medicine 12/17/19 documented as of this encounter
--- OUTSIDE RECORDS SUMMARY | 2024-02-09 11:49 | External Medical Summary | Summary of Care ---
Author Name Unknown Organization [facility] Address [address] [facility] [place] [address] Phone [phone] Care Team Providers Care Skin Lifter Bacon Name Role Phone Luis Melchor DO Primary Care Provider Reason for Visit * Reason Comments eRx-Medication Refill Encounter Details Date Type Department Care Team Description 09/03/2023 Refill Family Practice [facility] [address] [place] [address] Luis Melchor DO [address] [place] [address] Allergies Active Allergy Reactions Severity Noted Date Comments Niacin Flushing Low 10/25/1997 Pseudoephedrine Hcl Other (Please comment) Low 05/18 Urinary Retention documented as of this encounter (statuses as of 09/03/2023) Medications Medication Sig Dispensed Refills Start Date [...] Additional Information Patient not taking.Reported on 04/25/2023 Azelastine HCl 0.1 % Nasal SolutionIndicatio ns:Chronic maxillary sinusitis Administer 1 [place] into nostril 2 times a day. 30 mL 12 03/08/2021 Active Additional Information Patient not taking.Reported on 04/25/2023 Ondansetron HCl 4 MG Oral Tablet (Zofran)Indicatio ns:Gastroesophage al reflux disease with esophagitis, unspecified whether hemorrhage Take 1 Tab by mouth every 6 hours as needed for Nausea. 60 Tab 3 08/30/2021 Active Fluticasone Propionate 50 MCG/ACT Nasal Suspension (Flonase)Indicati ons:Chronic rhinitis Administer into nostril 1 [place] in the morning. 48 g 5 04/12/2022 Active Additional Information Patient not taking.Reported on 04/25/2023 Albuterol Sulfate HFA 108 (90 Base) MCG/ACT Inhalation Aerosol SolutionIndicatio ns:Bronchitis, complicated Inhale by mouth 2 Puffs every 6 hours as needed for Cough, Shortness of Breath or Wheezing. 18 g 2 05/31/2022 Active Additional Information Patient not taking.Reported on 04/25/2023 Terazosin HCl 10 MG Oral Capsule TAKE ONE CAPSULE BY MOUTH AT BEDTIME 90 Capsule 3 08/24/2022 Active Triamcinolone Acetonide 0.1 % External Ointment (Aristocort)Indic ations:LSC (lichen simplex chronicus) Apply twice daily to arms as needed for itch 15 g 0 08/27/2022 Active Omeprazole 20 MG Oral Capsule Delayed Release (PriLOSEC)Indicat ions:Gastroesopha geal reflux disease with esophagitis, unspecified whether hemorrhage TAKE ONE CAPSULE BY MOUTH DAILY 90 Capsule 3 09/17/2022 Active Ibrutinib 420 MG Oral TabletIndications :CLL (chronic lymphocytic leukemia) (HCC) TAKE 1 TABLET BY MOUTH IN THE MORNING 30 Tablet 5 04/16/2023 04/15/20 24 Active Sleep Aid 50 MG/30ML Oral Liquid [...] ONCE DAILY 90 Tablet 1 09/03/2023 Active Finasteride 5 MG Oral Tablet (Proscar) TAKE ONE TABLET BY MOUTH DAILY 90 Tablet 1 03/12/2023 09/03/20 23 Discontinued documented as of this encounter (statuses as of 09/03/2023) Active Problems Problem Noted Date Thrombocytopenia 04/25/2023 Gastroesophageal reflux disease with eso phagitis 04/25/2023 Chronic obstructive pulmonary disease Chronic systolic (congestive) heart fail ure 03/01/2023 Diverticulosis of large intestine withou t hemorrhage 02/28/2023 Overweight (BMI 25.0-29.9) 02/28/2023 Myogenic ptosis of bilateral eyelids Longstanding persistent atrial fibrillat ion 01/08/2022 Schatzki's ring of distal esophagus 07/20 GERD with esophagitis 08/13/2017 CLL (chronic lymphocytic leukemia) 01/12 [address]ymptomatic bilateral carotid artery st enosis 02/02/2015 BPH with obstruction/lower urinary tract symptoms 08/27/2014 Aortic valve stenosis 01/15/2014 Dyslipidemia 11/03/2009 Overview: Per Lipid Taxonomy. 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 Meniere disorder 01/09/2016 02/28/2023 Hx of basal cell carcinoma 11/03/201503/24 Overview: Hx BCC R midhelix 08/2015 Historical. RBBB (right bundle branch block) 02/02/2015 03/01/2023 Carotid bruit 01/15/2014 02/28/2023 Nonallergic rhinitis 05/20/2012 03/24/2020 Overview: Acute. Aortic valve sclerosis 12/12/2011 7 Overview: See echo report 11/2011 H ZOSTER NEURALGIA 07/25/2011 03/24/2020 Overview: Acute. Dyslipidemia, goal LDL below 100 11/15/2009 02/28/2023 ADVANCE DIRECTIVE INFORMATION 10/04/2006 Overview: Yes, Patient instructed to provide copy of advance directive for provider to review and to be scanned into Electronic Medical Record Conjunctivitis 05/23/2004 02/10/2018 DIVERTICULOSIS OF COLON 05/11/2002 02/29/20 23 PURE HYPERCHOLESTEROLEM 11/03/20 09 Overview: Per Lipid Taxonomy. documented as of this encounter (statuses as of 09/03/2023) Immunizations Name Administration Dates Next Due COVID-19 [...] pur e alcohol) occasional beer or wine Food Insecurity Answer Date Recorded Within the past 12 months, y ou worried that your food would run out before you got money to buy more. Never true 09/07/2020 Within the past 12 months, t he food you bought just didn't last and you didn't have money to get more. Never true 09/07/2020 Sex Assigned at Date Recorded Male 12/22/2019 9:[address] Job Start Date Occupation Industry Not on file Not on file Not on file documented as of this encounter Miscellaneous Notes * Telephone Encounter - Yusuf Cabrera RPh - 09/03/2023 5:18 PM EDTSigned Prescriptions: Disp Refills Finasteride 5 MG Oral Tablet (Proscar) 90 Tab*1 Sig: TAKE 1 TABLET BY MOUTH ONCE DAILYAuthorizing Provider: LUIS MELCHOR User: YUSUF CABRERA-- documented in this encounter Plan of Treatment Upcoming Encounters Date Type Specialty Care Team Description 10/22/2023 Office Visit Otolaryngology Alexy Link, [address] [place] [address] 10/22/2023 Laboratory Laboratory [place] [address] [place] [address] 10/23/[address] [facility] [place] [facility] Hem[facility]Onc [address] [place] [address] 10/24/2023 Office Visit Cardiology Cary Lee PA-C [address] [place] [address] 11/04/2023 Office Visit Hematology Oncology Adin Dow MD [address] [place] [address] 12/09/2023 Office Visit Family Medicine Luis Melchor, [address] [place] [address] Health Maintenance Due Date Last Done Comments Alpha-1 Antitrypsin 1958 DTaP,Tdap,and Td Vaccines (2 - Td or Tdap) 12/15/2022 12/15/2012, 10/19/2004, 01/21/1997 COVID-19 Vaccine ( season) 2023 12/18/2021, 01/28/2021, 12/18/2020 Depression Screening 04/25/2024 04/25/2023 O2 ASSESSMENT COMPLETED IN PAST YEAR FOR COPD 06/18/2024 06/18/2023 Pneumococcal Vaccine: 65+ Years Completed 06/30/2015, 07/01/2014, [...] 2:26 PM 06/07/2005 2:26 PM Care Teams Skin Lifter Bacon Relationship Specialty Start Date End Date Luis Melchor DO [address] [place] [address] PCP - General Family Medicine 12/17/19 documented as of this encounter
--- OUTSIDE RECORDS SUMMARY | 2024-02-09 11:49 | External Medical Summary | Summary of Care ---
Author Name Unknown Organization [facility] Address [address] [place] [address] Phone [phone] Care Team Providers Care Bank Vault Custodian Name Role Phone Alex Melchor Primary Care Provider Reason for Referral * Precert (Within 10 days (routine)) - Authorized Specialty Diagnoses / Procedures Referred By Conttashi t Referred To Contact Cardiac Studies Diagnoses Nonrheumatic aortic valve stenosis Persistent atrial fibrillation (HCC) Dyslipidemia, goal LDL below 70 Procedures ECHO, COMPLETE (2D), TRANS-THORACIC Cary Lee PA-C [address] [place] [address] Referral ID Status Reason Start Date Expiration Date V isits Requested Visits Authorized [id number] Authorized Precert 04/24/2024 999 999 Reason for Visit * Reason Comments Follow Up Encounter Details Date Type Department Care Team (Late st Contact Info) Description 10/24/2023 9:30 AM EST Office Visit Cardiology, [facility] [address] [place] [id number] Cary Lee PA-C [address] [place] [address] Nonrheumatic aortic valve stenosis*; Persistent atrial fibrillation (HCC); Dyslipidemia, goal LDL below 70; Chronic systolic (congestive) heart failure (HCC) Allergies Active Allergy Reactions Criticality Noted Date Comments Niacin Flushing Low 10/25/1997 Pseudoephedrine Hcl Other (Please comment) Low 05/18 Urinary Retention documented as of this encounter (statuses as of 10/24/2023) Medications Medication Sig Dispensed Refills Start Date End Date Status CENTRUM SILVER OR TABS once daily 0 12/06/2004 Active VITAMIN C 1000 MG OR TABS 1-2 tablets daily 0 12/06/2004 Active meclizine (ANTIVERT) 25 MG TabletIndications: Meniere disorder, left Take 1 Tab by mouth 3 times a day as needed for Dizziness. 30 Tab 1 01/24/2017 Active Ondansetron HCl 4 MG Oral Tablet (Zofran)Indication s:Gastroesophageal reflux disease with esophagitis, unspecified whether hemorrhage Take 1 Tab by mouth every 6 hours as needed for Nausea. 60 Tab 3 08/30/2021 Active Fluticasone Propionate 50 MCG/ACT Nasal Suspension (Flonase)Indicatio ns:Chronic rhinitis Administer into nostril 1 [place] in the morning. 48 g 5 04/12/2022 Active Additional Information Patient not taking.Reported on 04/25/2023 Terazosin HCl 10 MG Oral Capsule TAKE ONE CAPSULE BY MOUTH AT BEDTIME 90 Capsule 3 08/24/2022 Active Triamcinolone Acetonide 0.1 % External Ointment (Aristocort)Indica [...] Hour (toPROL XL)Indications:Atr ial fibrillation, unspecified type ([facility]) Take 1 Tablet by mouth in the [...] IN THE MORNING 30 Tablet 5 09/25/2023 4 Active Albuterol Sulfate HFA 108 (90 Base) [...] 3 days. 48 Tablet 0 10/22/2023 Active Doxycycline Hyclate 100 MG Oral CapsuleIndications :Acute maxillary sinusitis, recurrence not specified Take 1 Capsule by mouth in the morning and 1 Capsule before bedtime. Do all this for 7 days. Take for 7 days. 14 Capsule 0 10/19/2023 3 Discontinue d(Medicatio n/Dose Changed) documented as of this encounter (statuses as of 10/24/2023) Active Problems Problem Noted Date Diagnosed Date [...] as of this encounter (statuses as of 10/24/2023) Resolved Problems Problem Noted Date Diagnosed Date Resolved Date Chronic sinusitis 01/08/2022 02/28/2023 Thrombocytopenia 09/07/2020 01/08/2022 Hx of actinic keratosis 02/27/2017 050 05/2020 [...] as of this encounter (statuses as of 10/24/2023) Immunizations Name Administration Dates Next Due COVID-19 [...] Sign Reading Time Taken Comments Blood Pressure 114/60 10/24/2023 9:27 AM EST Pulse 80 10/24/2023 9:27 AM EST Temperature - - Respiratory Rate 12 10/24/2023 9:27 AM EST Oxygen Saturation - - Inhaled Oxygen Concentration - - Weight 75.8 kg (167 lb) 10/24/2023 9:27 AM EST Height - - Body Mass Index 27.79 10/22/2023 10:55 AM EST documented in this encounter Progress Notes * Cary Lee PA-C - 10/24/2023 9:35 AM EST 10/24/2023 Cardiology F/U: CHIEF COMPLAINT: persistent atrial fibrillation, bifascicular block, aortic valve stenosis, dyslipidemia SUBJECTIVE: Drake Pagan is a 83 year old male who presents today for routine cardiology follow-up. Last clinic evaluation approximately 6 months with the undersigned. Primary scutcher tender is Dr. Quinones. History includes: 1. Chronic afib, rates controlled. Chronic anticoagulation with Eliquis 2. Bifascicular block 3. Aortic stenosis, moderate. Stable per echo 03/2023 4. Dyslipidemia 5. History of CLL, diagnosis in 2016, follows with hematology 6. History of mildly reduced LVEF at 45-49%, improved to 55% per last echo. Negative nuclear stresstesting, likely non ischemic Patient presents today feeling well. He denies acute cardiac complaints. No recent chest pain or unusual shortness of breath. Currently being treated for sinusitis with antibiotics and prednisone. He sometimes feels "off balance" and has noted loss of sensation in the balls of his feet. He thinks he has neuropathy and is going to discuss at PCP visit next month. No discoloration of toes. No pain. No associated dizziness or lightheadedness. No syncope or near syncope. No chest pain, shortness of breath, palpitations, dizziness, syncope or near syncope. No orthopnea,PND, or increased lower extremity edema. No fever, chills, cough, hematochezia, melena, or hemoptysis. Review of Systems: See HPI for pertinent positives. All others negative, other than those noted in HPI. 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 60 Tab 3 Terazosin HCl 10 MG Oral Capsule TAKE ONE CAPSULE BY MOUTH AT BEDTIME 90 Capsule 3 Triamcinolone Acetonide 0.1 % External Ointment (Aristocort) [...] daily x 3 days. 48 Tablet 0 Fluticasone Propionate 50 MCG/ACT Nasal Suspension (Flonase) Administer into nostril 1 [place] in themorning. (Patient not taking: Reported on 04/25/2023) 48 g 5 No current facility-administered medications for this visit. OBJECTIVE/PHYSICAL EXAMINATION: BP 114/60 (BP Site: Left Arm, BP Position: Sitting, BP Cuff Size: Regular) | Pulse 80 | Resp 12 | Wt 75.8 kg (167 lb) | BMI 27.79 kg/m | BSA 1.86 m On my repeat 118/64 equal in both arms General: no acute distress and stated age Eyes: conjunctiva are pink and non-injected, sclera clear Neck: normal jugular venous pulse, no hepatojugular reflux Chest: normal shape and normal respiratory effort Lungs: clear to auscultation and percussion Cardiac Exam: - regular heart sounds,I/ SM Abdomen: abdomen soft, non-tender, no abnormal masses and no hepatosplenomegaly Musculoskeletal: no gait disturbance, no weakness Extremities: no edema and no cyanosis Neuro: grossly normal exam Psych: appropriate affect and insight. Data: EKG performed March 2023: Atrial fibrillation at 91 beats per minute Right bundle branch block Left anterior fascicular block Bifascicular block Possible voltage criteria for LVH Compared with prior EKG, no significant changes were noted. Echocardiogram report reviewed dated March 2023: Interpretation Summary The examination is adequate to evaluate the referral indication. There was atrial fibrillation during the examination. The LV wall thickness is mildly increased (concentric). The left ventricular wall motion is normal. Qualitative LV ejection Fraction = 55%. The left atrium is normal sized. The aortic valve is moderately calcified. Moderate aortic valve stenosis is present. Mild mitral regurgitation is present. Mild tricuspid regurgitation is present. Compared to the report of the prior study dated 02/16/2022, there has been an interval progression in the transvalvular gradients, however moderate aortic stenosis is still present. Nuclear stress testing report reviewed dated June 2022: Gated SPECT imaging reveals normal myocardial thickening and wall motion. The left ventricular ejection fraction was calculated to be 51%. Lexiscan nuclear cardiac stress test negative for ischemia. Summary ttecho performed 02/16/22: The qualitative LV ejection fraction is 45-49% (mildly reduced). The LV wall thickness is mildly increased (concentric). There is borderline diffuse left ventricular hypokinesis. The aortic valve is moderately calcified. Trace aortic regurgitation. Moderate aortic valve stenosis is present. Mild mitral regurgitation is present. Mild tricuspid regurgitation is present. There is no evidence of pulmonary hypertension. Compared to prior study of 03/09/2021, there is no significant change. Latest Reference Range & Units 10/22/23 11:31 Triglycerides <=174 mg/dL 56 Cholesterol <200 mg/dL 113 Non-HDL Cholesterol <=159 mg/dL 72 HDL Cholesterol >39 mg/dL 41 LDL Cholesterol <=129 mg/dL 61 Latest Reference Range & Units 10/22/23 11:31 Sodium 135 - 146 mmol/L 139 Potassium 3.5 - 5.1 mmol/L 4.2 Chloride 98 - 107 mmol/L 105 CO2 22 - 32 mmol/L 26 BUN 6 - 20 mg/dL 16 Creatinine 0.6 - 1.2 mg/dL 1.0 Estimated Glomerular Filtration Rate >=60 mL/min 72 Anion Gap 7 - 15 mmol/L 8 Glucose 70 - 120 mg/dL 101 Calcium 8.4 - 10.2 mg/dL 9.3 Magnesium 1.5 - 2.6 mg/dL 2.1 Protein 6.0 - 8.3 g/dL 6.4 LD <=250 U/L 222 ASSESSMENT/ PLAN: 82 year old male Persistent atrial fibrillation (HCC) (Primary) Rate controlled atrial fibrillation, ventricular rates controlled on exam. Continue rate control strategy with metoprolol succinate 25 milligrams daily and Eliquis. He had previously discussed having a percutaneous left atrial appendage occlusion device (Watchman)with Dr Chen. The patient however has been tolerating Eliquis well, and at this time he recommends ongoing Eliquis therapy rather than invasive procedure and I think this is a reasonable approach. The Watchman device remains an option should he have difficulty with bleeding in the future. Bifascicular bundle branch block In addition the atrial fibrillation he has conduction system disease with noted right bundle branchblock, left anterior fascicular block (bifascicular block pattern). Tolerating metoprolol succinate well. Continue to monitor. He does not have any subjective concernssuggestive of symptomatic bradycardia. Moderate aortic valve stenosis Stable, moderate aortic stenosis on most recent echo March 2023. Repeat echocardiogram at a 1 year interval, due April 2024. Order placed. Asymptomatic bilateral carotid artery stenosis Most recent carotid duplex took place a month ago in advance of this visit in February,, with stable less than 50% stenosis of the bilateral internal carotid arteries. Plan on repeat study at a 2 year interval. CLL (chronic lymphocytic leukemia) (HCC) As noted above, follows with Hematology. Has monthly CBC's followed by Hematology. Dyslipidemia Continue atorvastatin. Controlled. Moderate and symptoms discussed. Patient to call with any worsening symptoms or changes. Repeat echo in 6 months, which would be about 1 year interval. The patient is to continue all current medications as listed above. No changes were made at today'svisit. Recommend regular aerobic exercise. [place] goal would be minimum of 30 minutes done daily. Exercise can be done in divided time periods if needed. Told to avoid extremes in temperature. I spent a total of 30 minutes on the date of service in preparation, delivery, and documentation ofthe care provided to Drake Pagan excluding any time spent in the performance of separately billed services. The patient agrees to the above plan and will call with additional questions or concerns. ER with all emergencies advised. Follow-up: Return in about 6 months (around 04/24/2024). | Check-out note: Schedule echo in about 6 months F/U with Dr. Quinones after echo Cary Lee PA-C Department of Cardiology This chart was completed in part utilizing [employer] Speech Voice Recognition Software. Grammatical errors, random word insertions, prounoun errors, and incomplete sentences are an occasional consequence of this system due to software limitations, ambient noise, and hardware issues. Any formal questions or concerns about the content, text, or information contained within the body of this dictation should be directly addressed to the provider for clarification. documented in this encounter Nursing Notes * Nola Jensen CMA - 10/24/2023 9:23 AM EST Examination Room: 6 Name: Drake Pagan Date of : (1940). Reason for Visit: f/u Interim Hospitalization(s): none Problems/Concerns: denies Chest Pain/SOB: denies [facility] Discussed: No [facility] is a way you can talk to your provider online through e-mail. Would you like to sign up? I can activate it for you? ALREADY ACTIVE Patient was instructed to not get up on the exam table until directed and assisted by their provider; patient is to remain seated in the chair/ wheelchair/ exam table for fall prevention and safety reasons. Patient is aware to have assistance to step down off exam table with personnel. Patient voiced full comprehension of instructions. documented in this encounter Plan of Treatment Upcoming Encounters Date Type Department Care Team (Late st Contact Info) Description 11/04/2023 2:00 PM EST Office Visit Hematology/Oncology [facility] [address] [place] [address] Adin Dow MD [address] [place] [address] 12/09/2023 12:20 PM EST Office Visit Family [facility] [address] [place] [address] Alex Melchor DO [address] [place] [address] 12/25/2023 9:00 AM EST Pharmacy Pharmacy Hematology Oncology [facility] [address] [place] [address] [facility] Hem/Onc [address] [place] [address] 04/24/2024 11:00 AM EDT Cardiac Studies Cardiac Studies, [facility] [address] [facility] [place] [address] 04/30/2024 11:00 AM EDT Office Visit Cardiology, [facility] [address] [facility] [place] [address] Cary Lee PA-C [address] [place] [address] 10/23/2024 11:30 AM EST Office Visit Otolaryngology [facility] 132 [place] [address] Alexy Link DO [address] [place] [address] 10/29/2024 11:15 AM EST Office Visit Dermatology [facility] [address] [facility] [place] [address] Lyle Lowery MD [address] [facility] [place], [place] [address] Scheduled Orders Name Type Priority Associated Diagnoses Orde r Schedule ECHO, COMPLETE (2D), TRANS-THORACIC Echocardiology Routine Nonrheumatic aortic valve stenosis Persistent atrial fibrillation (HCC) Dyslipidemia, goal LDL below 70 Expected: 04/24/2024 (Approximate), Expires: 04/24/2025 Health Maintenance Due Date Last Done Comments [...] as of this encounter Visit Diagnoses Diagnosis Nonrheumatic aortic valve stenosis- Primary Aortic valve disorders Persistent atrial fibrillation (HCC) Atrial fibrillation Dyslipidemia, goal LDL below 70 Other and unspecified hyperlipidemia Chronic systolic (congestive) heart failure (HCC) documented in this encounter Advance Directives Latest Code Status on File Code Status Date Activated Date Inactivated Comments None 06/07/2005 2:26 PM 06/07/2005 2:26 PM Care Teams Bank Vault Custodian Relationship Specialty Start Date End Date Alex Melchor DO [address] [place] [address] PCP - General Family Medicine 12/17/19 documented as of this encounter
--- OUTSIDE RECORDS SUMMARY | 2024-02-09 11:49 | External Medical Summary | Summary of Care ---
Author Name Unknown Organization [facility] Address [address] [place] [address] Phone [phone] Care Team Providers Care [employer] Reader Name Role Phone Alex Melchor Primary Care Provider Reason for Visit * Reason Onset Date Comments Information 10/11/2023 Encounter Details Date Type Department Care Team (Late st Contact Info) Description 10/11/2023 Telephone Hematology/Oncology Treatment, [place] [address] [facility] [place] [address] Adin Dow MD [address] [place] [address] Information Allergies Active Allergy Reactions Criticality Noted Date Comments Niacin Flushing Low 10/25/1997 Pseudoephedrine Hcl Other (Please comment) Low 05/18 Urinary Retention documented as of this encounter (statuses as of 10/11/2023) Medications Medication Sig Dispensed Refills Start Date [...] on 04/25/2023 Azelastine HCl 0.1 % Nasal SolutionIndications :Chronic maxillary sinusitis Administer 1 [place] into nostril 2 times a day. 30 mL 12 03/08/2021 Active Additional Information Patient not taking.Reported on 04/25/2023 Ondansetron HCl 4 MG Oral Tablet (Zofran)Indications :Gastroesophageal reflux disease with esophagitis, unspecified whether hemorrhage Take 1 Tab by mouth every 6 hours as needed for Nausea. 60 Tab 3 08/30/2021 Active Fluticasone Propionate 50 MCG/ACT Nasal Suspension (Flonase)Indication s:Chronic rhinitis Administer into nostril 1 [place] in the morning. 48 g 5 04/12/2022 Active Additional Information Patient not taking.Reported on 04/25/2023 Albuterol Sulfate HFA 108 (90 Base) MCG/ACT Inhalation Aerosol SolutionIndications :Bronchitis, complicated Inhale by mouth 2 Puffs every [...] MORNING 30 Tablet 5 09/25/2023 09/24/2024 Active documented as of this encounter (statuses as of 10/11/2023) Active Problems Problem Noted Date Diagnosed Date [...] as of this encounter (statuses as of 10/11/2023) Resolved Problems Problem Noted Date Diagnosed Date [...] as of this encounter (statuses as of 10/11/2023) Immunizations Name Administration Dates Next Due COVID-19 [...] encounter Miscellaneous Notes * Telephone Encounter - Beatriz Murguia RN - 10/11/2023 4:02 PM EST Received fax that [facility] is assisting patient in application for free medication. No form attached to cover sheet, reached out to Annabelle Olson to have it resent. documented in this encounter Plan of Treatment Upcoming Encounters Date Type Department Care Team (Late st Contact Info) Description 10/18/2023 1:15 PM EST Office Visit Dermatology [facility] [place] [address] [place] [address] Tuyet Francisco MD [address] [place] [address] 10/22/2023 11:00 AM EST Office Visit [facility]ol[facility] [place] [address] Alexy Link, DO [address] [place] [address] 10/22/2023 11:30 AM EST Laboratory Laboratory, [facility] [address] [facility] [place] [id number] [facility] [place] [address] 10/23/2023 9:00 AM EST Pharmacy Pharmacy Hematology Oncology [address] [address] [facility] Hem/Onc [facility] [place] [address] 10/24/2023 9:30 AM EST Office Visit Cardiology, [facility] [place] [address] Cary Lee, DOUGIE 132 [facility] [place] [address] 11/04/2023 2:00 PM EST Office Visit Hematology/Oncology [facility] [address] [place] [address] Adin Dow MD [address] [place] [address] 12/09/2023 12:20 PM EST Office Visit Family Practice [facility] [address] [place] [address] Alex Melchor, [address] [place] [address] Health Maintenance Due Date Last Done Comments Alpha-1 Antitrypsin 1956 DTaP,Tdap,and Td Vaccines (2 - Td or Tdap) 12/15/2022 12/15/2012, 10/19/2004, 01/21/1997 COVID-19 Vaccine (4 - season) 2023 12/18/2021, 01/28/2021, 12/18/2020 Depression [...] 2:26 PM 06/07/2005 2:26 PM Care Teams Christian [employer] Reader Relationship Specialty Start Date End Date Alex Melchor DO [address] [place] [address] PCP - General Family Medicine 12/17/19 documented as of this encounter
--- OUTSIDE RECORDS SUMMARY | 2024-02-09 11:49 | External Medical Summary | Summary of Care ---
Author Name Unknown Organization [facility] Address [address] [facility] [address] Phone [phone] Care Team Providers Care Apprentice Electrician Name Role Phone Alex Melchor DO Primary Care Provider Reason for Visit * Reason Onset Date Comments Medication Refill 09/19/2023 Encounter Details Date Type Department Care Team (Late st Contact Info) Description 09/19/2023 Refill Family Practice [facility] [address] [place] [address] Alex Melchor DO [address] [place] [address] Gastroesophageal reflux disease with esophagitis, unspecified whether hemorrhage Allergies Active Allergy Reactions Criticality Noted Date Comments Niacin [place]ushing Low 10/25/1997 Pseudoephedrine Hcl Other (Please comment) Low 05/18 Urinary Retention documented as of this encounter (statuses as of 09/20/2023) Medications Medication Sig Dispensed Refills Start Date [...] Nasal SolutionIndications :Chronic maxillary sinusitis Administer 1 [place] into nostril 2 times a day. 30 mL 12 03/08/2021 Active Additional Information Patient not taking.Reported on 04/25/2023 Ondansetron HCl 4 MG Oral Tablet (Zofran)Indications :Gastroesophageal reflux disease with esophagitis, unspecified whether hemorrhage Take 1 Tab by mouth every 6 hours as needed for Nausea. 60 Tab 3 08/30/2021 Active Fluticasone Propionate 50 MCG/ACT Nasal Suspension (Flonase)Indication s:Chronic rhinitis Administer into nostril 1 [place] in the morning. 48 g 5 04/12/2022 [...] for itch 15 g 0 08/27/2022 Active Ibrutinib 420 MG Oral TabletIndications:C LL (chronic lymphocytic leukemia) (HCC) TAKE 1 TABLET BY MOUTH IN THE MORNING 30 Tablet 5 04/16/2023 04/15/2024 Active Sleep Aid 50 MG/30ML Oral Liquid [...] Hour (toPROL XL)Indications:Atri al fibrillation, unspecified type ([facility]) Take 1 Tablet by mouth in [...] ONCE DAILY 90 Capsule 1 09/18/2023 Active documented as of this encounter (statuses as of 09/20/2023) Active Problems Problem Noted Date Diagnosed Date [...] as of this encounter (statuses as of 09/20/2023) Resolved Problems Problem Noted Date Diagnosed Date [...] as of this encounter (statuses as of 09/20/2023) Immunizations Name Administration Dates Next Due COVID-19 [...] Recorded PHQ Adult Total Score 0 04/25/2023 Sex and Gender Information Value Date Recorded Sex Assigned at Male 12/22/2019 9:22 AM EST Gender Identity Male 12/22/2019 9:22 AM EST Sexual Orientation Straight 12/22/2019 9: 22 AM EST Job Start Date Occupation Industry Not on file Not on file Not on file documented as of this encounter Miscellaneous Notes * Telephone Encounter - Carlos Enrique Haddad RPh - 09/20/2023 9:14 AM EDT Refused Prescriptions: Disp Refills Omeprazole 20 MG Oral Capsule Delayed Rele*90 Cap*1 Sig: Take 1Capsule by mouth in the morning.Refused By: CARLOS ENRIQUE HADDAD for Refusal: Duplicate Requ est documented in this encounter Plan of Treatment Upcoming Encounters Date Type Department Care Team (Late st Contact Info) Description 10/18/2023 1:15 PM EST Office Visit Dermatology [facility] [place] [address] [place] [address] Tuyet Francisco MD [address] [place] [address] 10/22/2023 11:00 AM EST Office Visit Otolaryngology [facility] [place] [address] Alexy Link, DO 132 [facility] [place] [address] 10/22/2023 11:30 AM EST Laboratory Laboratory, [facility] 132 [facility] [place] [phone] [facility] [address] [facility] [place] [address] 10/23/2023 9:00 AM EST Pharmacy Pharmacy Hematology Oncology [facility] [address] [place] [address] [facility] Hem/Onc [address] [place] [address] 10/24/2023 9:30 AM EST Office Visit Cardiology, [facility] [address] [facility] [place] [address] Cary Lee, DOUGIE 132 [facility] [place] [address] 11/04/2023 2:00 PM EST Office Visit [facility] [address] [place] [address] Adin Dow MD [address] [place] [address] 12/09/2023 12:20 PM EST Office Visit Family Practice [facility] 132 [facility] [place] [address] Alex Melchor, [address] [place] [address] Health Maintenance Due Date Last Done Comments [...] as of this encounter Visit Diagnoses Diagnosis Gastroesophageal reflux disease with esophagitis, unspecified whether hemorrhage documented in this encounter Advance Directives Latest Code Status on File Code Status Date Activated Date Inactivated Comments None 06/07/2005 2:26 PM 06/07/2005 2:26 PM Care Teams Apprentice Electrician Relationship Specialty Start Date End Date Alex Melchor DO [address] [place] [address] PCP - General Family Medicine 12/17/19 documented as of this encounter
--- OUTSIDE RECORDS SUMMARY | 2024-02-09 11:49 | External Medical Summary | Summary of Care ---
Author Name Unknown Organization [facility] Address [address] [facility] [address] Phone [phone] Care Team Providers Care Trailer Truck Driver Name Role Phone Luis Melchor DO Primary Care Provider Reason for Visit * Reason Comments eRx-Medication Refill Encounter Details Date Type Department Care Team (Late st Contact Info) Description 09/17/2023 Refill Family Practice [facility] [address] [place] [address] Luis Melchor DO [address] [place] [address] Gastroesophageal reflux disease with esophagitis, unspecified whether hemorrhage Allergies Active Allergy Reactions Criticality Noted Date Comments Niacin [place] Low 10/25/1997 Pseudoephedrine Hcl Other (Please comment) Low 05/18 Urinary Retention documented as of this encounter (statuses as of 09/18/2023) Medications Medication Sig Dispensed Refills Start Date [...] Nasal SolutionIndicatio ns:Chronic maxillary sinusitis Administer 1 [place] into nostril 2 times a day. 30 [...] (Flonase)Indicati ons:Chronic rhinitis Administer into nostril 1 [place] in the morning. 48 g 5 04/12/2022 [...] 0 08/27/2022 Active Ibrutinib 420 MG Oral TabletIndications :CLL [...] Hour (toPROL XL)Indications:At rial fibrillation, unspecified type ([facility]) Take 1 Tablet by mouth in the [...] ONCE DAILY 90 Capsule 1 09/18/2023 Active Omeprazole 20 MG Oral Capsule Delayed Release (PriLOSEC)Indicat ions:Gastroesopha geal reflux disease with esophagitis, unspecified whether hemorrhage TAKE ONE CAPSULE BY MOUTH DAILY 90 Capsule 3 09/17/2022 09/18/20 23 Discontinued documented as of this encounter (statuses as of 09/18/2023) Active Problems Problem Noted Date Diagnosed Date [...] as of this encounter (statuses as of 09/18/2023) Resolved Problems Problem Noted Date Diagnosed Date [...] as of this encounter (statuses as of 09/18/2023) Immunizations Name Administration Dates Next Due COVID-19 [...] encounter Miscellaneous Notes * Telephone Encounter - Seth Perez RPh - 09/18/2023 12:33 PM EDT Signed Prescriptions: Disp Refills Omeprazole 20 MG Oral Capsule Delayed Rele*90 Cap*1 Sig: TAKE 1CAPSULE BY MOUTH ONCE DAILYAuthorizing Provider: LUIS MELCHOR User: SETH PEREZ documented in this encounter Plan of Treatment Upcoming Encounters Date Type Department Care Team (Late st Contact Info) Description 10/18/2023 1:15 PM EST Office Visit Dermatology [facility] [address] [facility] [place] [address] Tuyet Francisco MD [address] [facility] [place] [address] 10/22/2023 11:00 AM EST Office Visit Otolaryngology [facility] [address] [place] [address] Alexy Link DO [address] [place] [address] 10/22/2023 11:30 AM EST Laboratory Laboratory, [facility] [address] [place] [phone] [facility] [address] [place] [address] 10/23/2023 9:00 AM EST Pharmacy Pharmacy Hematology Oncology [address] [facility], [facility] Hem/Onc [address] [place] [address] 10/24/2023 9:30 AM EST Office Visit Cardiology, [facility] [address] [place] [address] Cary Lee PA-C [address] [place] [address] 11/04/2023 2:00 PM EST Office Visit Hematology/Oncology [facility] [address] [place] [address] Adin Dow MD 200 [facility] [place] [address] 12/09/2023 12:20 PM EST Office Visit Family [facility] [address] [place] [address] Luis Melchor DO [address] [place] [address] Health Maintenance Due Date Last Done Comments [...] 2:26 PM 06/07/2005 2:26 PM Care Teams Trailer Truck Driver Relationship Specialty Start Date End Date Luis Melchor DO [address] [place] [address] PCP - General Family Medicine 12/17/19 documented as of this encounter
--- OUTSIDE RECORDS SUMMARY | 2024-02-09 11:49 | External Medical Summary ---
Author Name Unknown Address Unknown Organization [facility] [address] [place] [id number] Laboratory Report Ordering Provider Test Date Status JOSE CASILLAS 10/22/2023 11:31:35 Final Observation Date Value Abnormality Reference (Units ) Status SYNC LEUKOCYTES IN BLOOD BY AUTOMATED COUNT 10/22/2023 11:31:35 7.76 4.00-10.80 (K/uL) Final Segs 10/22/2023 11:31:35 53.4 40.0-75.0 (%) Final Lymphs % 10/22/2023 11:31:35 33.9 18.0-42.0 (%) Final Monos 10/22/2023 11:31:35 10.3 1.0-11.0 (%) Final Eosinophils 10/22/2023 11:31:35 1.8 0.0-6.0 (%) Final Basos 10/22/2023 11:31:35 0.6 0.0-2.0 (%) Final Absolute Segs 10/22/2023 11:31:35 4.14 1.80-7.70 (K/uL) Final Lymphs, absolute 10/22/2023 11:31:35 2.63 1.00-4.80 (K/ul) Final Monos, Abs 10/22/2023 11:31:35 0.80 0.00-1.10 (K/uL) Final Eos, Abs 10/22/2023 11:31:35 0.14 0.00-0.70 (K/uL) Final Basos, Abs 10/22/2023 11:31:35 0.05 0.00-0.20 (K/uL) Final Performing Location [facility] [place] [address]
--- OUTSIDE RECORDS SUMMARY | 2024-02-09 11:49 | External Medical Summary | Summary of Care ---
Author Name Unknown Organization [facility] Address [address] [place] [facility] [place] [address] Phone [phone] Care Team Providers Care Bottom Crane Operator Name Role Phone Rowena Melchorr Riley Primary Care Provider Reason for Visit * Reason Comments Outpatient Testing Encounter Details Date Type Department Care Team (Late st Contact Info) Description 10/22/2023 11:30 AM EST Laboratory Laboratory, [facility] [place] [phone] [facility] 132 [place] [address] CLL (chronic lymphocytic leukemia) ([facility]); Encounter for long-term (current) use of medications; Dyslipidemia; Chronic obstructive pulmonary disease, unspecified COPD type ([facility]) Allergies Active Allergy Reactions Criticality Noted Date Comments Niacin [place] Low 10/25/1997 Pseudoephedrine Hcl Other (Please comment) Low 05/18 Urinary Retention documented as of this encounter (statuses as of 10/22/2023) Medications Medication Sig Dispensed Refills Start Date [...] (Flonase)Indication s:Chronic rhinitis Administer into nostril 1 [place] in the morning. 48 g 5 04/12/2022 [...] as of this encounter (statuses as of 10/22/2023) Active Problems Problem Noted Date Diagnosed Date [...] as of this encounter (statuses as of 10/22/2023) Resolved Problems Problem Noted Date Diagnosed Date [...] as of this encounter (statuses as of 10/22/2023) Immunizations Name Administration Dates Next Due COVID-19 [...] st Contact Info) Description 10/23/2023 9:00 AM EST Pharmacy Pharmacy Hematology Oncology [facility] [address] [place] [address] [facility], [facility] Hem/Onc [address] [place] [address] 10/24/2023 9:30 AM EST Office Visit Cardiology, [facility] [address] [facility] [place] [address] Cary Lee PA-C [address] [place] [address] 11/04/2023 2:00 PM EST Office Visit Hematology/Oncology [facility] 200 [facility] [address] [place] [address] Adin Dow MD 200 [facility] [place] [address] 12/09/2023 12:20 PM EST Office Visit Family Practice [facility] [address] [place] [address] Alex Melchor DO [address] [place] [address] 10/23/2024 11:30 AM EST Office Visit Otolaryngology [facility] [address] [facility] [place] [address] Alexy Link, DO 132 [facility] [place] [address] 10/29/2024 11:15 AM EST Office Visit Dermatology [facility] 200 [facility] [place] [address] Lyle Lowery MD 200 [facility] [place] [address] Pending Results Name Type Priority Associated Diagnoses Date /Time LD Lab Routine CLL (chronic lymphocytic leukemia) (HCC) 10/22/2023 11:31 AM EST LIPID PANEL WITH DIRECT LDL IF TG IS HIGH Lab Routine Dyslipidemia Encounter for long-term (current) use of medications 10/22/2023 11:31 AM EST MAGNESIUM Lab Routine Encounter for long-term (current) use of medications 10/22/2023 11:31 AM EST VITAMIN B12 Lab Routine Encounter for long-term (current) use of medications 10/22/2023 11:31 AM EST [id number], QN Lab Routine Chronic obstructive pulmonary disease, unspecified COPD type (HCC) 10/22/2023 11:31 AM EST COMPREHENSIVE METABOLIC PANEL Lab STAT CLL (chronic lymphocytic leukemia) (HCC) 10/22/2023 11:31 AM EST ALBUMIN / CREATININE RATIO, URINE Lab Routine Encounter for long-term (current) use of medications 10/22/2023 11:35 AM EST Health Maintenance Due Date Last [...] Date/Time Associated Diagnosis Comments DIFFERENTIAL, AUTOMATED STAT 10/22/2023 11:31 AM EST CLL (chronic lymphocytic leukemia) (HCC) CBC STAT 10/22/2023 11:31 AM EST CLL (chronic lymphocytic leukemia) (HCC) CBC STAT 10/22/2023 11:31 AM EST CLL (chronic lymphocytic leukemia) (HCC) documented in this encounter Results * DIFFERENTIAL, AUTOMATED (10/22/2023 11:31 AM EST) WBC 7.76 4.00 - 10.80 K/uL 10/22/2023 11:45 AM EST [facility] [place] [facility] Neutrophils % 53.4 40.0 - 75.0 % 10/22/2023 11:45 AM EST [facility] [place] [facility] Lymphocytes % 33.9 18.0 - 42.0 % 10/22/2023 11:45 AM EST [facility] [place] [facility] Monocytes % 10.3 1.0 - 11.0 % 10/22/2023 11:45 AM EST [facility] [place] [facility] Eosinophils % 1.8 0.0 - 6.0 % 10/22/2023 11:45 AM EST [facility] [place] [facility] Basophils % 0.6 0.0 - 2.0 % 10/22/2023 11:45 AM EST [facility] [place] [facility] Absolute Neutrophils 4.14 1.80 - 7.70 K/uL 10/22/2023 11:45 AM EST [facility] [place] [facility] Absolute Lymphocytes 2.63 1.00 - 4.80 K/ul 10/22/2023 11:45 AM EST [facility] [place] [facility] Absolute Monocytes 0.80 0.00 - 1.10 K/uL 10/22/2023 11:45 AM EST [facility] [place] [facility] Absolute Eosinophils 0.14 0.00 - 0.70 K/uL 10/22/2023 11:45 AM EST [facility] [place] [facility] Absolute Basophils 0.05 0.00 - 0.20 K/uL 10/22/2023 11:45 AM EST [facility] [place] [facility] Blood Venous blood specimen / Unknown Venipuncture / Unknown 10/22/2023 11:31 AM EST 10/22/2023 11:31 AM EST Adin Dow MD LAB BLOOD ORDERA BLES [facility] [place] [facility] [place] [address] * (ABNORMAL) CBC (10/22/2023 11:31 AM EST) WBC 7.76 4.00 - 10.80 K/uL 10/22/2023 11:45 AM EST [facility] [place] [facility] RBC 4.82 4.50 - 5.25 M/uL 10/22/2023 11:45 AM EST [facility] [place] [facility] HGB 13.4(L) 14.0 - 16.8 g/dL 10/22/2023 11:45 AM EST [facility] [place] [facility] HCT 40.4 40.0 - 48.4 % 10/22/2023 11:45 AM EST [facility] [place] [facility] MCV 83.8 82.0 - 99.5 fL 10/22/2023 11:45 AM EST [facility] [place] [facility] MCH 27.8 27.0 - 34.0 pg 10/22/2023 11:45 AM EST [facility] [place] [facility] MCHC 33.2 32.0 - 36.0 g/dL 10/22/2023 11:45 AM EST [facility] [place] [facility] RDW 13.6 11.5 - 15.5 % 10/22/2023 11:45 AM EST [facility] [place] [facility] PLT 120(L) 140 - 400 K/uL 10/22/2023 11:45 AM EST [facility] [place] [facility] MPV 10.6 6.6 - 11.1 fL 10/22/2023 11:45 AM EST [facility] [place] [facility] Blood Venous blood specimen / Unknown Venipuncture / Unknown 10/22/2023 11:31 AM EST 10/22/2023 11:31 AM EST Adin Dow MD LAB BLOOD ORDERA BLES [facility] [place] [facility] [facility] [place] [address] documented in this encounter Visit Diagnoses Diagnosis CLL (chronic lymphocytic leukemia) (HCC) Chronic lymphoid leukemia, without mention of having achieved remission Encounter for long-term (current) use of medications Encounter for long-term (current) use of other medications Dyslipidemia Other and unspecified hyperlipidemia Chronic obstructive pulmonary disease, unspecified COPD type (HCC) documented in this encounter Advance Directives Latest Code Status on File Code Status Date Activated Date Inactivated Comments None 06/07/2005 2:26 PM 06/07/2005 2:26 PM Care Teams Bottom Crane Operator Relationship Specialty Start Date End Date Alex Melchor DO [address] [place] [address] PCP - General Family Medicine 12/17/19 documented as of this encounter
--- OUTSIDE RECORDS SUMMARY | 2024-02-09 11:49 | External Medical Summary ---
Author Name Unknown Address Unknown Organization [facility] [place] [address] [place] [id number] Laboratory Report Ordering Provider Test Date Status JOSE CASILLAS 10/22/2023 11:31:35 Final Observation Date Value Abnormality Reference (Units ) Status BUN 10/22/2023 11:31:35 16 6-20 (mg/dL) Final Creatinine 10/22/2023 11:31:35 1.0 0.6-1.2 (mg/dL) Final Glomerular filtration rate/1.73 sq M.predicted [Volume Rate/Area] in Serum, Plasma or Blood by Creatinine-based formula (CKD-EPI) 10/22/2023 11:31:35 72 >=60 (mL/min) Final eGFR is calculated based on the CKD-EPI 2020 equation SODIUM 10/22/2023 11:31:35 139 135-146 (m mol/L) Final Potassium 10/22/2023 11:31:35 4.2 3.5-5.1 (m mol/L) Final Cl 10/22/2023 11:31:35 105 98-107 (mm ol/L) Final CO2 10/22/2023 11:31:35 26 22-32 (mmo l/L) Final Anion gap 10/22/2023 11:31:35 8 7-15 (mmol /L) Final Glucose 10/22/2023 11:31:35 101 70-120 (mg /dL) Final Albumin 10/22/2023 11:31:35 3.6 Below low normal 3.8 -5.0 (g/dL) Final AST (Aspartate aminotransferase) 10/22/2023 11:31:35 33 10-50 (U/L) Fin al Alk Phos 10/22/2023 11:31:35 114 35-130 (U/ L) Final Bilirubin, Total 10/22/2023 11:31:35 1.2 <=1 .2 (mg/dL) Final Calcium 10/22/2023 11:31:35 9.3 8.4-10.2 ( mg/dL) Final Protein 10/22/2023 11:31:35 6.4 6.0-8.3 (g /dL) Final ALT (Alanine aminotransferase) 10/22/2023 11:31:35 12 10-50 (U/L) Abdiel huynh Performing Location [facility] [place] [address] [facility] [address]
--- OUTSIDE RECORDS SUMMARY | 2024-02-09 11:49 | External Medical Summary | Summary of Care ---
Author Name Unknown Organization [facility] Address [address] [place] [address] Phone [phone] Care Team Providers Care Technical Communicator Name Role Phone Alex Melchor Primary Care Provider Reason for Visit * Reason Comments Skin Check Patient is here for upper body check. Patient has a spot on the back of his right upper arm that is small but never goes away. Patient stated that it is raised and itchy at times and he picks at it. Patient has history of LC, AK's, and NMSC Encounter Details Date Type Department Care Team (Late st Contact Info) Description 10/18/2023 1:15 PM EST Office Visit Dermatology [facility] [place] [address] [facility] [place] [address] Tuyet Francisco MD [address] [facility] [place] [address] LSC (lichen simplex chronicus)*; Scar; Hx of actinic keratosis; Hx of nonmelanoma skin cancer Allergies Active Allergy Reactions Criticality Noted Date Comments Niacin Flushing Low 10/25/1997 Pseudoephedrine Hcl Other (Please comment) Low 05/18 Urinary Retention documented as of this encounter (statuses as of 10/21/2023) Medications Medication Sig Dispensed Refills Start Date [...] (Flonase)Indicatio ns:Chronic rhinitis Administer into nostril 1 Sunny Side in the morning. 48 g 5 04/12/2022 [...] MORNING 30 Tablet 5 09/25/2023 4 Active Azelastine HCl 0.1 % Nasal SolutionIndication s:Chronic maxillary sinusitis Administer 1 [place] into nostril 2 times a day. 30 mL 12 03/08/2021 3 Discontinue d(Patient preference/ discontinua tion) Albuterol Sulfate HFA 108 (90 Base) MCG/ACT Inhalation Aerosol SolutionIndication s:Bronchitis, complicated Inhale by mouth 2 Puffs every 6 hours as needed for Cough, Shortness of Breath or Wheezing. 18 g 2 05/31/2022 3 Discontinue d(Refill) Amoxicillin-Pot Clavulanate 875-125 MG Oral Tablet (Augmentin)Indicat ions:Chronic maxillary sinusitis Take 1 Tablet by mouth in the morning and 1 Tablet before bedtime. Do all this for 10 days. 20 Tablet 0 09/23/2023 3 Discontinue d(Patient preference/ discontinua tion) documented as of this encounter (statuses as of 10/21/2023) Active Problems Problem Noted Date Diagnosed Date [...] as of this encounter (statuses as of 10/21/2023) Resolved Problems Problem Noted Date Diagnosed Date [...] as of this encounter (statuses as of 10/21/2023) Immunizations Name Administration Dates Next Due COVID-19 [...] as of this encounter Progress Notes * Tuyet Francisco MD - 10/18/2023 1:22 PM EST SUBJECTIVE: History of Present Illness: Drake Pagan is a 83 year old male seen today for follow up - skin check. Date Last Appointment: 04/24/2023 (in office), Visit date not found (telemedicine) No new concerns. Hx BCC R midhelix 08/2015, Hx AK Hx CLL, on ibrutinib Hx afib REVIEW OF SYSTEMS: SKIN: No other new or changing moles. HEME/LYMPH: No new or enlarging lumps or bumps. MEDICA TIONS: Current Outpatient Medications Medication Sig Dispense Refill CENTRUM SILVER OR TABS once daily 0 VITAMIN C 1000 MG OR TABS 1-2 tablets daily 0 meclizine (ANTIVERT) 25 MG Tablet Take 1 Tab by mouth 3 times a day as needed for Dizziness. (Patient not taking: Reported on 04/25/2023) 30 Tab 1 Azelastine HCl 0.1 % Nasal Solution Administer 1 Sunny Side into nostril 2 times a day. (Patient not taking: Reported on 04/25/2023) 30 mL 12 Ondansetron HCl 4 MG Oral Tablet (Zofran) Take 1 Tab by mouth every 6 hours as needed for Nausea. 60 Tab 3 Fluticasone Propionate 50 MCG/ACT Nasal Suspension (Flonase) Administer into nostril 1 Sunny Side in themorning. (Patient not taking: Reported on 04/25/2023) 48 g 5 Albuterol Sulfate HFA 108 (90 Base) MCG/ACT Inhalation Aerosol Solution Inhale by mouth 2 Puffs every 6 hours as needed for Cough, Shortness of Breath or Wheezing. (Patient not taking: Reported on 04/25/2023) 18 g 2 Terazosin HCl 10 MG Oral Capsule TAKE [...] MOUTH IN THE MORNING 30 Tablet 5 No current facility-administered medications for this visit. ALLERG IES: Niacin and Sudafed [pseudoephedrine hcl] OBJECTIVE: GEN: Healthy, alert, no distress, appears oriented, pleasant, and cooperative. SKIN: Detailed exam of hair, face including lids and lips, neck, chest, abdomen, back, bilateral upper ext. (arm, hand, fingers), bilateral lower ext. (leg, foot, toes), and palpation of scalp completed and are normal except: 1. R ear - scar ASSESS MENT/PLAN: 1. Scar - Hx NMSC - no evidence of recurrence Discussed sun protection with patient including proper use of sunscreens and protective clothing. ABCDs explained. Photodamage, no outlier lesions Follow-up: 1 year There were no barriers tolearning and no other pain was related to today's visit. The patient and/or person accompanying patient demonstrates understanding of the visit and treatment. Tuyet Francisco MD 10/18/2023 1:22 PM documented in this encounter Nursing Notes * Patrica Cardoza LPN - 10/18/2023 1:09 PM EST Patient identified by name and date of . Do you have any concerns about pain management for today's visit? No Living Will or Advance Directive for Health Care as noted on problem list. [employer] is a way you can talk to your provider online through e-mail. Would you like to sign up? I can activate it for you? ALREADY ACTIVE Chief Complaint Patient presents with Skin Check Patient is here for upper body check. Patient has a spot on the back of his right upper arm that issmall but never goes away. Patient stated that it is raised and itchy at times and he picks at it. Patient has history of LC, AK's, and NMSC documented in this encounter Plan of Treatment Upcoming Encounters Date Type Department Care Team (Late st Contact Info) Description 10/22/2023 11:00 AM EST Office Visit Otolaryngology [facility] [address] [place] [address] Alexy Link, DO [address] [place] [address] 10/22/2023 11:30 AM EST Laboratory Laboratory, [facility] [address] [place] [phone] [place] [facility] [place] [address] 10/23/2023 9:00 AM EST Pharmacy Pharmacy Hematology Oncology [facility] [address] [place] [address] [facility] [place] Hem/Onc [address] [place] [address] 10/24/2023 9:30 AM EST Office Visit Cardiology, [facility] [address] [place] [address] Cary Lee PA-C [address] [place] [address] 11/04/2023 2:00 PM EST Office Visit Hematology/Oncology [facility] [place] [address] [place] [address] Adin Dow MD [address] [place] [address] 12/09/2023 12:20 PM EST Office Visit Family Practice [facility] [address] [place] [address] Alex Melchor, DO [address] [place] [address] 10/29/2024 11:15 AM EST Office Visit D[facility]atology [facility] [place] [address] [facility] [place] [address] Lyle Lowery MD [address] [facility] [place] [address] Health Maintenance Due Date Last Done Comments [...] as of this encounter Visit Diagnoses Diagnosis LSC (lichen simplex chronicus)- Primary Lichenification and lichen simplex chronicus Scar Scar condition and fibrosis of skin Hx of actinic keratosis Personal history of diseases of skin and subcutaneous tissue Hx of nonmelanoma skin cancer Personal history of other malignant neoplasm of skin documented in this encounter Advance Directives Latest Code Status on File Code Status Date Activated Date Inactivated Comments None 06/07/2005 2:26 PM 06/07/2005 2:26 PM Care Teams Technical Communicator Relationship Specialty Start Date End Date Alex Melchor DO [address] [place] [address] PCP - General Family Medicine 12/17/19 documented as of this encounter
--- OUTSIDE RECORDS SUMMARY | 2024-02-09 11:49 | External Medical Summary | Summary of Care ---
Author Name Unknown Organization [facility] Address [address] [place] [address] Phone [phone] Care Team Providers Care Manager Validation Name Role Phone Ruiz Alex Springer[place] Primary Care Provider Encounter Details Date Type Department Care Team (Late st Contact Info) Description 09/23/2023 11:10 AM EST Office Visit [place] [address] [place] [address] Lakeshia Godfrey [address] [place] [address] Chronic maxillary sinusitis* Allergies Active Allergy Reactions Criticality Noted Date Comments Niacin Flushing Low 10/25/1997 Pseudoephedrine Hcl Other (Please comment) Low 05/18 Urinary Retention documented as of this encounter (statuses as of 09/23/2023) Medications Medication Sig Dispensed Refills Start Date [...] Nasal SolutionIndications :Chronic maxillary sinusitis Administer 1 [place] into nostril 2 times a day. 30 mL 12 03/08/2021 Active Additional Information Patient not taking.Reported on 04/25/2023 Ondansetron HCl 4 MG Oral Tablet (Zofran)Indications :Gastroesophageal reflux disease with esophagitis, unspecified whether hemorrhage Take 1 Tab by mouth every 6 hours as needed for Nausea. 60 Tab 3 08/30/2021 Active Fluticasone Propionate 50 MCG/ACT Nasal Suspension (Flonase)Indication s:Chronic rhinitis Administer into nostril 1 [place] in the morning. 48 g 5 04/12/2022 [...] MG Oral TabletIndications:C LL (chronic lymphocytic leukemia) ([facility]) TAKE 1 TABLET BY MOUTH IN THE [...] Hour (toPROL XL)Indications:Atri al fibrillation, unspecified type ([facility]) Take 1 Tablet by mouth in the [...] ONCE DAILY 90 Capsule 1 09/18/2023 Active Amoxicillin-Pot Clavulanate 875-125 MG Oral Tablet (Augmentin)Indicati ons:Chronic maxillary sinusitis Take 1 Tablet by mouth in the morning and 1 Tablet before bedtime. Do all this for 10 days. 20 Tablet 0 09/23/2023 10/03/2023 Active documented as of this encounter (statuses as of 09/23/2023) Active Problems Problem Noted Date Diagnosed Date [...] as of this encounter (statuses as of 09/23/2023) Resolved Problems Problem Noted Date Diagnosed Date [...] as of this encounter (statuses as of 09/23/2023) Immunizations Name Administration Dates Next Due COVID-19 [...] Sign Reading Time Taken Comments Blood Pressure 118/62 09/23/2023 11:57 AM EST Pulse 78 09/23/2023 11:57 AM EST Temperature 36.9 C (98.4 F) 09/23/2023 11:[address] Respiratory Rate - - Oxygen Saturation 96% 09/23/2023 11:57 AM EST Inhaled Oxygen Concentration - - Weight - - Height - - Body Mass Index - - documented in this encounter Progress Notes * Lakeshia Godfrey DO - 09/23/2023 11:45 AM EST Subjective: Drake Pagan is a 83 year old male. No chief complaint on file. HPI: 83 year old male presents with sinus pressure and congestion over 3 weeks. Had a cold 3 weeks ago. Hx of , and atrial fibrillation along with CLL, meds were reviewed. He was in for a visit with his , whom I see and asked that I see him for an illness. No fevers. No shortness of breath. No ankle edema. 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 Do all this for 10 days. 20 Tablet 0 CENTRUM SILVER OR TABS once daily 0 VITAMIN C 1000 MG OR TABS 1-2 tablets daily 0 meclizine (ANTIVERT) 25 MG Tablet Take 1 Tab by mouth 3 times a day as needed for Dizziness. (Patient not taking: Reported on 04/25/2023) 30 Tab 1 Azelastine HCl 0.1 % Nasal Solution Administer 1 [place] into nostril 2 times a day. (Patient not taking: Reported on 04/25/2023) 30 mL 12 Ondansetron HCl 4 MG Oral Tablet (Zofran) Take 1 Tab by mouth every 6 hours as needed for Nausea. 60 Tab 3 Fluticasone Propionate 50 MCG/ACT Nasal Suspension (Flonase) Administer into nostril 1 [place] in themorning. (Patient not taking: Reported on [...] as needed for itch 15 g 0 Ibrutinib 420 MG Oral Tablet TAKE 1 TABLET BY MOUTH IN THE MORNING 30 Tablet 5 Sleep Aid 50 MG/30ML Oral Liquid (diphenhydrAMINE [...] BY MOUTH ONCE DAILY 90 Capsule 1 No current facility-administered medications for this visit. Review of patient's allergies indicates: Allergen Reactions Niacin Flushing Sudafed [Pseudoephedrine Hcl] Other (Please comment) Urinary Retention Objective: BP 118/62 | Pulse 78 | Temp 36.9 C (98.4 F) | SpO2 96% Physical Exam: General: alert, healthy, and no distress Ears: External ears normal, Canals clear, TM's Normal Nose: clear rhinorrhea, mucosal edema, mucosal erythema Oropharynx: no exudate, no erythema, lips, buccal mucosa, and tongue normal, and mucous membranes are moist Neck: supple, no adenopathy Heart: regular rate & rhythm, no murmur, and no gallops Lungs: chest symmetric with normal AP diameter, no chest deformities noted, no chest wall tenderness, lungs clear to auscultation ASSESSMENT/PLAN: Chronic maxillary sinusitis (Primary) - Amoxicillin-Pot Clavulanate 875-125 MG Oral Tablet (Augmentin); Take 1 Tablet by mouth in the morning and 1 Tablet before bedtime. Do all this for 10 days. Reviewed side affects If no better in 1 week to contact his PCP Lakeshia Godfrey DO documented in this encounter Plan of Treatment Upcoming Encounters Date Type Department Care Team (Late st Contact Info) Description 10/18/2023 1:15 PM EST Office Visit Dermatology [facility] [address] [facility] [address] [place] [address] Tuyet Francisco MD [facility] [address] 10/22/2023 11:00 AM EST Office Visit Otolaryngology [facility] [address] [place] [address] Alexy Link DO 132 [facility] [place] [address] 10/22/2023 11:30 AM EST Laboratory Laboratory, [facility] [address] [facility] [place] [phone] [facility] [address] [facility] [place] [address] 10/23/2023 9:00 AM EST Pharmacy Pharmacy Hematology Oncology [facility] [address] [place] [address] [facility] [place] Hem/Onc [address] [place] [address] 10/24/2023 9:30 AM EST Office Visit Cardiology, [facility] [address] [place] [address] Cary Lee PA-C [address] [place] [address] 11/04/2023 2:00 PM EST Office Visit Hematology/Oncology [facility] [address] [facility] [place] [address] Adin Dow MD [address] [facility] [place] [address] 12/09/2023 12:20 PM EST Office Visit Family [facility] [address] [place] [address] Alex Melchor DO [address] [place] [address] Health Maintenance Due Date Last Done Comments [...] as of this encounter Visit Diagnoses Diagnosis Chronic maxillary sinusitis- Primary documented in this encounter Advance Directives Latest Code Status on File Code Status Date Activated Date Inactivated Comments None 06/07/2005 2:26 PM 06/07/2005 2:26 PM Care Teams Manager Validation Relationship Specialty Start Date End Date Alex Melchor DO [address] [place] [address] PCP - General Family Medicine 12/17/19 documented as of this encounter"
--- OUTSIDE RECORDS SUMMARY | 2024-02-09 11:49 | External Medical Summary ---
Author Name Unknown Address Unknown Organization K01:[facility] [place] [facility] [place] [address] Laboratory Report Ordering Provider Test Date Status MELQUIADES SMITH 10/22/2023 11:31:35 Final Observation Date Value Abnormality Reference (Units ) Status Triglyceride 10/22/2023 11:31:35 56 <=174 ( mg/dL) Final Triglyceride Reference Range s (mg/dL):
<150 Acceptable
150-174 Borderline high
175-499 High
>=500 Very high Cholesterol 10/22/2023 11:31:35 113 <200 (mg /dL) Final Total Cholesterol Reference Ranges (mg/dL):
<200 Desirable
200-239 Borderline high
>=240 High HDL 10/22/2023 11:31:35 41 >39 (mg/dL ) Final HDL Cholesterol Reference Ra nges (mg/dL):
>=60 High (Desirable)
<50 Low (Undesirable) For Females
<40 Low (Undesirable) For Males NON-HDL CHOLESTEROL 10/22/2023 11:31:35 72 <=159 (mg/dL) Final Non-HDL Cholesterol Referenc e Range (mg/dL):
<100 Target level for high risk ASCVD patient
<130 Optimal for general population
130-159 Near optimal for general population
160-189 Borderline High
190-219 High
>=220 Very High LDL, (calculated) 10/22/2023 11:31:35 61 <= 129 (mg/dL) Final LDL Cholesterol Reference Ra nges (mg/dL):
<70 Target level for high risk ASCVD patient
<100 Optimal for general population
100-129 Near optimal for general population
130-159 Borderline high
160-189 High
>=190 Very high Performing Location [facility] [place] [address] [facility] [address]
--- OUTSIDE RECORDS SUMMARY | 2024-02-09 11:49 | External Medical Summary | Summary of Care ---
Author Name Unknown Organization [facility] Address [address] [place] [address] Phone [phone] Care Team Providers Care Professional Bass Fisherman Name Role Phone Alex Melchor Primary Care Provider Reason for Visit * Reason Comments Acute Encounter Details Date Type Department Care Team (Late st Contact Info) Description 10/19/2023 10:00 AM EST Office Visit Family Practice [facility] [address] [facility] [place] [address] Lyle Martinez MD [address] [place] [address] Acute maxillary sinusitis, recurrence not specified*; Bronchitis, complicated Allergies Active Allergy Reactions Criticality Noted Date Comments Niacin Flushing Low 10/25/1997 Pseudoephedrine Hcl Other (Please comment) Low 05/18 Urinary Retention documented as of this encounter (statuses as of 10/19/2023) Medications Medication Sig Dispensed Refills Start Date [...] (Flonase)Indicatio ns:Chronic rhinitis Administer into nostril 1 [place] in the morning. 48 g 5 04/12/2022 [...] 10/19/2023 Active Doxycycline Hyclate 100 MG Oral CapsuleIndications :Acute maxillary sinusitis, recurrence not specified Take 1 Capsule by mouth in the morning and 1 Capsule before bedtime. Do all this for 7 days. Take for 7 days. 14 Capsule 0 10/19/2023 3 Active Azelastine HCl 0.1 % Nasal SolutionIndication s:Chronic maxillary sinusitis Administer 1 [place] into nostril 2 times a day. 30 [...] as of this encounter (statuses as of 10/19/2023) Active Problems Problem Noted Date Diagnosed Date [...] as of this encounter (statuses as of 10/19/2023) Resolved Problems Problem Noted Date Diagnosed Date [...] as of this encounter (statuses as of 10/19/2023) Immunizations Name Administration Dates Next Due COVID-19 [...] Never Smokeless Tobacco: Never Tobacco Cessation:Counseling Given: Yes Comments:no passive smoke at home Alcohol Use [...] Sign Reading Time Taken Comments Blood Pressure 110/64 10/19/2023 9:33 AM EST Pulse 86 10/19/2023 9:33 AM EST Temperature 36.8 C (98.3 F) 10/19/2023 9:33 AM ES T Respiratory Rate 16 10/19/2023 9:33 AM EST Oxygen Saturation - - Inhaled Oxygen Concentration - - Weight 76.8 kg (169 lb 4.8 oz) 10/19/2023 9:33 A M EST Height 165.1 cm (5' 5") 10/19/2023 9:33 AM EST Body Mass Index 28.17 10/19/2023 9:33 AM EST documented in this encounter Progress Notes * Llye Martinez MD - 10/19/2023 9:43 AM EST Chief Complaint Patient presents with Acute SUBJECTIVE: Drake Pagan is a 83 year old male with PMH as below who presents for acute. Notes sinus Congestion, nasal drip, pressure for 8 weeks. Was seen on 09/23/23, given amox- clauv, helped a little, but still has thick nasal drainage, throat congestion. Some cough, but no chest congestion, sob, heard, wheezing. Sputum is thick but clear. 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 Dyslipidemia E78.5 Aortic valve stenosis I35.0 BPH with obstruction/lower urinary tract symptoms N40.1, N13.8 Asymptomatic bilateral carotid artery stenosis I65.23 CLL (chronic lymphocytic leukemia) ([facility]) C91.10 GERD with esophagitis K21.00 Schatzki's ring of distal esophagus K22.2 Longstanding persistent atrial fibrillation ([facility]) I48.11 Diverticulosis of large intestine without hemorrhage K57.30 Overweight (BMI 25.0-29.9) E66.3 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 18 g 2 Doxycycline Hyclate 100 MG Oral Capsule Take 1 Capsule by mouth in the morning and 1 Capsule beforebedtime. Do all this for 7 days. Take for 7 days. 14 Capsule 0 Fluticasone Propionate 50 MCG/ACT Nasal Suspension (Flonase) Administer into nostril 1 [place] in themorning. (Patient not taking: Reported on 04/25/2023) 48 g 5 Triamcinolone Acetonide 0.1 % External Ointment (Aristocort) Apply twice daily to arms as needed for itch 15 g 0 Sleep Aid 50 MG/30ML Oral Liquid (diphenhydrAMINE HCl) Take 30 mL by mouth as needed. As needed at bedtime. No current facility-administered medications for this visit. Review of patient's allergies indicates: Allergen Reactions Niacin Flushing Sudafed [Pseudoephedrine Hcl] Other (Please comment) Urinary Retention Health Maintenance Due Topic Date Due Alpha-1 Antitrypsin Never done DTaP,Tdap,and Td Vaccines (2 - Td or Tdap) 12/15/2022 COVID-19 Vaccine (2022- season) 2023 ROS: CONSTITUTIONAL: No change in weight, No weakness, and No fevers, sweats, or chills EYE: No recent significant change in vision, No eye pain, redness, discharge, and No diplopia EARS: No ear pain, No drainage, No tinnitus or vertigo, and No recent change in hearing PULMONARY: No wheezing, No rales, No shortness of breath, and No recent change in breathing CARDIOVASCULAR: No chest pain, No shortness of breath, and No dyspnea on exertion ALL OTHER SYSTEMS NEGATIVE I reviewed social, PMH, PSH, and family history and updated where needed. 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[employer] Tobacco Use Smoking status: Never Smokeless tobacco: Never Tobacco comments: no passive smoke at home Vaping Use Vaping Use: Never used Substance and Sexual Activity Alcohol use: Yes Comment: occasional beer or wine Drug use: No Sexual activity: Yes Other Topics Concern Not on file Social History Narrative [facility] INFORMATION ENIVIRONMENTAL HISTORY: House: Two Story Type of Heating System: Oil and Hot water baseboard Air Conditioning: Yes Room, TV room; BR Basement: Unfinished, Dampness and Dehumidifier Home have cockroaches: No Irritants in the home: Scented Candles Patient's bedroom: FLOOR: second TYPE OF LUCIAN: Carpeting Beds: AMOUNT : 1 TYPE OF BEDS: Mattress and Box spring Pillows: AMOUNT: 2 TYPE OF PILLOWS: Synthetic (hypoallergenic, polyester) Bedroom contains: Minimal items Pets: 1 cat(s) Lives on a farm: No Retired from physical [employer] work. Entered By: Rodrigue Avila MD 05/20/2012 Social Determinants of Health Financial Resource Strain: Not on file Food Insecurity: No Food Insecurity (09/07/2020) Hunger Vital Sign Worried About Running Out of Food in the Last Year: Never true Ran Out of Food in the Last Year: Never true Transportation Needs: Not on file Physical Activity: Not on file Stress: Not on file Social Connections: Not on file Intimate Partner Violence: Not on file Housing Stability: Not on file Past Medical History: Diagnosis Date Aortic valve sclerosis 12/12/2011 Benign neoplasm of colon 07/01/2012 COLONOSCOPY FLEXIBLE PROXIMAL DIAGNOSTIC performed by Segundo Walden MD at [facility], path shows adenomatous polyps repeat in 1 yea [...] 02/28/2023 Schatzki's ring of distal esophagus 08/14/2018 Past Surgical History: Procedure Laterality Date COLONOSCOPY, DIAGNOSTIC (RECTUM) 07/01/2012 COLONOSCOPY FLEXIBLE PROXIMAL DIAGNOSTIC performed by Segundo Walden MD at [facility], path shows adenomatous polyps repeat in 1 yea COLONOSCOPY, DIAGNOSTIC (RECTUM) 09/07/2016 diverticulosis/COLONOSCOPY FLEXIBLE PROXIMAL DIAGNOSTIC performed by Segundo Walden MD at ENDOSCOPY [facility] COLORECTAL CANCER SCREEN; COLON 04/2002 Negative- diverticulae noted. Repeat in 5 years. CYSTOSCOPY EVAL OF BPH- DR. ROCHE EGD, FLEXIBLE, DIAGNOSTIC 07/18/2017 mild stomach irritation/ESOPHAGOGASTRODUODENOSCOPY (EGD), FLEXIBLE, TRANSORAL, DIAGNOSTIC performedby Bonita Fisher DO at ENDOSCOPY [facility] EGD, FLEXIBLE, DIAGNOSTIC 08/12/2018 Schatzki ring/ESOPHAGOGASTRODUODENOSCOPY (EGD), FLEXIBLE, TRANSORAL, DIAGNOSTIC performed by Bonita Fisher DO at ENDOSCOPY [facility] LUMBAR / SACRAL EPIDURAL, SINGLE LEVEL 09/17/2019 INJECTION TRANSFORAMINAL EPIDURAL LUMBAR OR SACRAL performed by Jonathan Mariee DO at OR [facility] LUMBAR / SACRAL EPIDURAL, SINGLE LEVEL 10/22/2019 INJECTION TRANSFORAMINAL EPIDURAL LUMBAR OR SACRAL performed by Jonathan Mariee DO at OR [facility] HI BLEPHAROPLASTY UPPER EYELID W/EXCESSIVE SKIN Bilateral 11/28/2022 Dr. Schuster-blephroplasty with levator PROCTOSIGMOIDOSCOPY DX 03/28/1997 negative REMOVAL OF APPENDIX AGE 10 Appendectomy STRESS TREADMILL 02/1998 negative for ischemia; mild hypertensive response. US GUIDE NEEDLE PROSTATE BX 03/2005 negative path report VASC DUPLEX CAROTID BILAT 01/2014 < 50% occclusion bilaterally VASC DUPLEX CAROTID BILAT 01/2015 no change- < 50% occlusion bilaterally VASC DUPLEX CAROTID BILAT 01/2016 no change- < 50% bilaterally Family History Problem Relation Age of Onset Blood Disorder Father 80 P. VERA Cancer Father S/P LUNG CANCER- 30 YEARS AGO Heart Disorder Mother HYPERCHOLESTEROLEMIA Allergies Daughter hayfever Allergies Son chronic rhinitis Allergies Sister 2 with chronic rhinitis/sinusitis OBJECTIVE: PHYSICAL EXAM: BP 110/64 | Pulse 86 | Temp 36.8 C (98.3 F) | Resp 16 | Ht 1.651 m (5' 5") | Wt 76.8 kg (169 lb4.8 oz) | BMI 28.17 kg/m | BSA 1.88 m General: alert, healthy, and no distress Head: Normocephalic, No masses, lesions, or abnormalities Eye Exam: conjunctiva are pink and non-injected, sclera clear Ears: External ears normal, aid sin Nose: mucosal edema, mucosal erythema, sinus tenderness Oropharynx: no exudate, lips, buccal mucosa, and tongue normal, mucous membranes are moist, and moderate erythema Lungs: normal respiratory rate and rhythm, lungs clear to auscultation I reviewed last gfr, glucose ASSESSMENT: J01.00 Acute maxillary sinusitis, recurrence not specified (primary encounter diagnosis) J40 Bronchitis, complicated PLAN: Acute maxillary sinusitis, recurrence not specified (Primary) - Doxycycline Hyclate 100 MG Oral Capsule; Take 1 Capsule by mouth in the morning and 1 Capsule before bedtime. Do all this for 7 days. Take for 7 days. Start med as above Cont nasal saline, fluids Bronchitis, complicated - Albuterol Sulfate HFA 108 (90 Base) MCG/ACT Inhalation Aerosol Solution; Inhale 2 Puffs by mouth every 6 hours as needed for Cough, Shortness of Breath or Wheezing. Would like refill of inhaler, , med sent Follow Up: Return if symptoms worsen or fail to improve. Lyle Martinez MD documented in this encounter Nursing Notes * Divya España LPN - 10/19/2023 9:33 AM EST Ongoing sinus problems, did take augmentin documented in this encounter Plan of Treatment Upcoming Encounters Date Type Department Care Team (Late st Contact Info) Description 10/22/2023 11:00 AM EST Office Visit Otolaryngology [facility] [address] [place] [address] Alexy Link DO [address] [facility] [place] [address] 10/22/2023 11:30 AM EST Laboratory Laboratory, [facility] [address] [place] [phone] [place] [facility] [address] [facility] [place] [address] 10/23/2023 9:00 AM EST Pharmacy Pharmacy Hematology Oncology [facility] [address] [place] [address] [facility] Hem/Onc [address] [place] [address] 10/24/2023 9:30 AM EST Office Visit Cardiology, [facility] [address] [facility] [place] [address] Cary Lee PA-C [address] [facility] [place] [address] 11/04/2023 2:00 PM EST Office Visit Hematology/Oncology [facility] [place] [address] [place] [address] Adin Dow MD [address] [place] [address] 12/09/2023 12:20 PM EST Office Visit Family Practice [facility] [address] [place] [address] Alex Melchor DO [address] [place] [address] 10/29/2024 11:15 AM EST Office Visit Dermatology [facility] [address] [facility] [address] [place] [address] Lyle Lowery MD 200 [facility] [place] [address] Health Maintenance Due Date Last Done Comments [...] as of this encounter Visit Diagnoses Diagnosis Acute maxillary sinusitis, recurrence not specified- Primary Bronchitis, complicated Bronchitis, not specified as acute or chronic documented in this encounter Advance Directives Latest Code Status on File Code Status Date Activated Date Inactivated Comments None 06/07/2005 2:26 PM 06/07/2005 2:26 PM Care Teams Professional Bass Fisherman Relationship Specialty Start Date End Date Alex Melchor DO [address] [place] [address] PCP - General Family Medicine 12/17/19 documented as of this encounter
--- OUTSIDE RECORDS SUMMARY | 2024-02-09 11:49 | External Medical Summary | Summary of Care ---
Author Name Unknown Organization [facility] Address [address] [place] [facility] [place] [place] [address] Phone [phone] Care Team Providers Care Financial Systems Administrator Name Role Phone Alex Melchor Primary Care Provider Reason for Visit * Reason Comments Medication Refill Encounter Details Date Type Department Care Team (Late st Contact Info) Description 09/24/2023 Refill Hematology/Oncology [facility] [place] [address] [facility] [place] [address] Adin Garcia MD [address] [facility] [place] [address] CLL (chronic lymphocytic leukemia) ([facility]) Allergies Active Allergy Reactions Criticality Noted Date Comments Niacin Flushing Low 10/25/1997 Pseudoephedrine Hcl Other (Please comment) Low 05/18 Urinary Retention documented as of this encounter (statuses as of 09/25/2023) Medications Medication Sig Dispensed Refills Start Date [...] on 04/25/2023 Azelastine HCl 0.1 % Nasal SolutionIndication s:Chronic maxillary sinusitis Administer 1 [place] into nostril 2 times a day. 30 mL 12 03/08/2021 Active Additional Information Patient not taking.Reported on 04/25/2023 Ondansetron HCl 4 MG Oral Tablet (Zofran)Indication s:Gastroesophageal reflux disease with esophagitis, unspecified whether hemorrhage Take 1 Tab by mouth every 6 hours as needed for Nausea. 60 Tab 3 08/30/2021 Active Fluticasone Propionate 50 MCG/ACT Nasal Suspension (Flonase)Indicatio ns:Chronic rhinitis Administer into nostril 1 [place] in the morning. 48 g 5 04/12/2022 [...] Active Amoxicillin-Pot Clavulanate 875-125 MG Oral Tablet (Augmentin)Indicat ions:Chronic maxillary sinusitis Take 1 Tablet by mouth in the morning and 1 Tablet before bedtime. Do all this for 10 days. 20 Tablet 0 09/23/2023 3 Active Ibrutinib 420 MG Oral TabletIndications: CLL (chronic lymphocytic leukemia) (HCC) TAKE 1 TABLET BY MOUTH IN THE MORNING 30 Tablet 5 09/25/2023 4 Active Ibrutinib 420 MG Oral TabletIndications: CLL (chronic lymphocytic leukemia) (HCC) TAKE 1 TABLET BY MOUTH IN THE MORNING 30 Tablet 5 04/16/2023 3 Discontinue d(Refill) documented as of this encounter (statuses as of 09/25/2023) Active Problems Problem Noted Date Diagnosed Date [...] as of this encounter (statuses as of 09/25/2023) Resolved Problems Problem Noted Date Diagnosed Date [...] as of this encounter (statuses as of 09/25/2023) Immunizations Name Administration Dates Next Due COVID-19 [...] encounter Miscellaneous Notes * Telephone Encounter - Natasha Aponte, [facility] - 09/25/2023 9:10 AM EST Refill Request EPIC Note Clinical Pharmacy Service (Hematology/Oncology): Refill Request(s) PHYSICIAN ACTION: No Assessment & Plan After reviewing the parameters in order to refill the patient's medication(s), the following was determined: The medication(s), ibrutinib, was refilled and no parameters need to be addressed No communication to requesting entity necessary Refill Parameters The following parameters were assessed in order to decide whether or not this refill was appropriate: Refill Parameter Comments If the patient was seen in the last 6 months (12 months for [facility] patients) Yes - 06/18/23 If the labs were completed per prescribing information recommendations or provider recommendations Yes - 08/12/23 If the labs were within normal limits or stable at baseline yes If the dose was correct and/or if the prescription sig reflects the current prescribed dose yes If there were any new drug interactions with the patient's oral chemotherapy Yes - augmentin - no DDI If there were any care gaps/baseline labs that need to be addressed no Natasha Aponte [facility] Ambulatory Clinical Pharmacist | Oral Chemotherapy Clinic [facility] 09/25/2023, 9:10 AM * Telephone Encounter - Natasha Aponte [facility] - 09/25/2023 9:10 AM EST Signed Prescriptions: Disp Refills Ibrutinib 420 MG Oral Tablet 30 Tab*5 Sig: TAKE 1 TABLET BY MOUTH IN THE MORNING Authorizing Provider: ADIN GARCIA User: NATASHA APONTE * Telephone Encounter - Beatriz Murguia RN - 09/24/2023 10:29 AM ESTPending Prescriptions: Disp Refills Imbruvica 420 MG Oral Tablet (Ibrutinib) 30 Tab*5 Sig: TAKE 1 TABLET BY MOUTH IN THE MORNING documented in this encounter Plan of Treatment Upcoming Encounters Date Type Department Care Team (Late st Contact Info) Description 10/18/2023 1:15 PM EST Office Visit Dermatology [facility] [address] [facility] [place] [address] Tuyet Francisco MD [facility] [address] 10/22/2023 11:00 AM EST Office Visit Otolaryngology [facility] [address] [place] [address] Alexy Link DO [address] [place] [address] 10/22/2023 11:30 AM EST Laboratory Laboratory, [facility] [address] [place] [phone] [facility] [address] [place] [address] 10/23/2023 9:00 AM EST Pharmacy Pharmacy Hematology Oncology [facility] [address] [place] [address] [facility] Hem/Onc [address] [place] [address] 10/24/2023 9:30 AM EST Office Visit Cardiology, [facility] [address] [place] [address] Cary Lee, [place] [address] [place] [address] 11/04/2023 2:00 PM EST Office Visit Hematology/Oncology [facility] [address] [place] [address] Adin Garcia MD [address] [place] [address] 12/09/2023 12:20 PM EST Office Visit [facility] [address] [place] [address] Alex Melchor DO [address] [place] [address] Health Maintenance Due Date Last Done Comments [...] 2:26 PM 06/07/2005 2:26 PM Care Teams Financial Systems Administrator Relationship Specialty Start Date End Date Alex Melchor DO [address] [place] [address] PCP - General Family Medicine 12/17/19 documented as of this encounter"
--- OUTSIDE RECORDS SUMMARY | 2024-02-09 11:49 | External Medical Summary | Summary of Care ---
Author Name Unknown Organization [facility] Address [address] [facility] [place] [address] Phone [phone] Care Team Providers Care Physician Ophthalmologist Name Role Phone Alex Melchor Primary Care Provider Reason for Visit * Reason Comments Follow Up Encounter Details Date Type Department Care Team (Late st Contact Info) Description 10/22/2023 11:00 AM EST Office Visit Otolaryngology [facility] [address] [place] [address] Alexy Link DO [address] [place] [address] Acute ethmoidal sinusitis, recurrence not specified* Allergies Active Allergy Reactions Criticality Noted Date [...] (Flonase)Indication s:Chronic rhinitis Administer into nostril 1 [place] in the morning. 48 g 5 04/12/2022 [...] Sign Reading Time Taken Comments Blood Pressure - - Pulse - - Temperature - - Respiratory Rate - - Oxygen Saturation - - Inhaled Oxygen Concentration - - Weight 76.4 kg (168 lb 6.4 oz) 10/22/2023 10:55 AM EST Height 165.1 cm (5' 5") 10/22/2023 10:55 AM EST Body Mass Index 28.02 10/22/2023 10:55 AM EST documented in this encounter Progress Notes * Alexy Link DO - 10/22/2023 11:06 AM EST Otolaryngology Head and Neck Surgery 10/22/2023 Patient returns today for check of his sinuses and his suspected Meniere's disease. He states his ears have been doing well. No bouts of dizziness over the past year. It has been having issues with his sinuses for the past couple months. Had a sinus infection which was treated by his family doctor with amoxicillin which partially improved his symptoms but is still currently having postnasal drip and nasal congestion and facial pressure. 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 Chronic systolic (congestive) heart failure ([facility]) I50.22 Thrombocytopenia ([facility]) D69.6 Gastroesophageal reflux disease with esophagitis K21.00 Chronic obstructive pulmonary disease ([facility]) J44.9 Past Medical History: Diagnosis Date Aortic valve sclerosis 12/12/2011 Benign neoplasm of colon 07/01/2012 COLONOSCOPY FLEXIBLE PROXIMAL DIAGNOSTIC performed by Segundo Walden MD at ENDOSCOPY [facility], path shows adenomatous polyps repeat in 1 [...] by Segundo Walden MD at [facility]COPY [facility], path shows adenomatous polyps repeat in 1 yea COLONOSCOPY, DIAGNOSTIC (RECTUM) 09/07/2016 diverticulosis/COLONOSCOPY FLEXIBLE PROXIMAL DIAGNOSTIC performed by Segundo Walden MD at ENDOSCOPY [facility] COLORECTAL CANCER SCREEN; COLON 04/2002 Negative- diverticulae noted. Repeat in 5 years. CYSTOSCOPY EVAL OF BPH- DR. ROCHE EGD, FLEXIBLE, DIAGNOSTIC 07/18/2017 mild stomach irritation/ESOPHAGOGASTRODUODENOSCOPY (EGD), FLEXIBLE, TRANSORAL, DIAGNOSTIC performedby Bonita Fisher DO at ENDOSCOPY [facility] EGD, FLEXIBLE, DIAGNOSTIC 08/12/2018 Schatzki ring/ESOPHAGOGASTRODUODENOSCOPY (EGD), FLEXIBLE, TRANSORAL, DIAGNOSTIC performed by Bonita Fisher DO at ENDOSCOPY [facility] LUMBAR / SACRAL EPIDURAL, SINGLE LEVEL 09/17/2019 INJECTION TRANSFORAMINAL EPIDURAL LUMBAR OR SACRAL performed by Jonathan Yun Mariee DO at OR [facility] LUMBAR / SACRAL EPIDURAL, SINGLE LEVEL 10/22/2019 INJECTION TRANSFORAMINAL EPIDURAL LUMBAR OR SACRAL performed by Jonathan Mariee DO at OR [facility] [place] BLEPHAROPLASTY UPPER EYELID W/EXCESSIVE SKIN Bilateral 11/28/2022 [...] BILAT 01/2016 no change- < 50% bilaterally Medications Current Outpatient Medications Medication Sig Dispense Refill [...] Nasal Suspension (Flonase) Administer into nostril 1 [place] in themorning. (Patient not taking: Reported on 04/25/2023) 48 g 5 Terazosin HCl 10 MG Oral Capsule TAKE [...] Take for 7 days. 14 Capsule 0 No current facility-administered medications for this visit. Allergies Review of patient's allergies indicates: Allergen Reactions Niacin Flushing Sudafed [Pseudoephedrine Hcl] Other (Please comment) Urinary Retention Family History Family History Problem Relation Age of Onset Blood Disorder Father 80 P. VERA Cancer Father S/P LUNG CANCER- 30 YEARS AGO Heart Disorder Mother HYPERCHOLESTEROLEMIA Allergies Daughter hayfever Allergies Son chronic rhinitis Allergies Sister 2 with chronic rhinitis/sinusitis Social History Social History Tobacco Use Smoking status: Never Smokeless tobacco: Never Tobacco comments: no passive smoke at home Substance Use Topics Alcohol use: Yes Comment: occasional beer or wine Vaping/E-Cigarette Use Vaping/E-Cigarette Use Never User Vaping/E-Cigarette Substances Vaping/E-Cigarette Devices Review of Systems Negative for constitutional, eyes, cardiac, pulmonary, hepatic, renal, digestive, hematologic, epileptic, syncopal, musculo-skeletal, mental health, integumentary, hypertensive, lipid, arthritic, diabetic, thyroid, or neurologic disorders (except as listed in the PMH and Problem List). Physical Examination: Ht 1.651 m (5' 5") | Wt 76.4 kg (168 lb 6.4 oz) | BMI 28.02 kg/m | BSA 1.87 m PHYSICAL EXAM General: This is a healthy appearing male who appears his stated age. The patient is alert and appropriately verbally conversant without hoarseness. Face: The face was inspected and no cutaneous masses or lesions were visualized. There was no erythema or edema noted. Facial movement was symmetric without weakness. No skin lesions were detected. There was no sinus tenderness elicited. The parotid and submandibular glands were normal to palpation. Eyes: Extra-ocular muscle function was intact. No nystagmus was observed. Pupils were equal. Cranial Nerves: Cranial nerves II, III, IV, and were noted to be intact via extra-ocular muscle movement testing. Cranial nerve VII noted to be intact and symmetric by facial movement. Nose: Examination of the nose revealed no masses, polyps, mucopus, or other lesion. The nasal septum was non-obstructing. The turbinates were without abnormality. Procedure: In order to assess the paranasal sinuses, endoscopy of the nose and paranasal sinuses was performed. The nose was decongested with topical oxymetazoline 0.05% spray and then anesthetized with topicalLidocaine 4% spray. The scope was used to examine each side of the nose. There were no masses visualized. The nasal mucosa was without lesion. The middle meatus on each side did have some mucopurulent drainage. The septum was non-obstructing. The nasopharynx was without lesion. The patient tolerated the procedure well. Assessment: 83-year-old male with likely Meniere's disease and acute sinusitis Plan: - recommend switching to Augmentin and starting a prednisone taper. -I will see him back in a year for his routine eval. -he knows to call the office if sinus symptoms persist after completion of antibiotic and prednisone I spent a total of 30 minutes on the date of service in preparation, delivery, and documentation ofthe care provided to the above patient, excluding any time spent on the performance of any procedures or separately billable services. Alexy Link DO, FACS [facility] [place], [place] 10/22/2023 11:20 AM documented in this encounter Nursing Notes * Lamar Kirkpatrick LPN - 10/22/2023 10:52 AM EST Chief Complaint Patient presents with Follow Up Patient presents today for eval of his sinuses. Feels he has sinus infection. Coughing, nasal drainage, clearing throat often, hoarseness, Sinuses feel "full". No pain. Symptoms x 2 months. Had amoxicillin initially. Saw pcp this weekend started doxy. Using albuterol and Flonase. Not affecting his ears, hearing has been the same. Plan: - doing well in regards to his Meniere's disease - will obtain a [place] RAST for further evaluation of his possible allergic rhinitis. Will contact him with the results - f/u in one year. Alexy Link DO, FR[facility] Ne[facility] [place], [place] 10/23/2022 11:15 AM documented in this encounter Plan of Treatment Upcoming Encounters Date Type Department Care Team (Late st Contact Info) Description 10/23/2023 9:00 AM EST Pharmacy Pharmacy Hematology Oncology [facility] [address] [place] [address] [facility] Hem/Onc [address] [place] [address] 10/24/2023 9:30 AM EST Office Visit [facility], [facility] [address] [place] [address] Cary Lee PA-C [address] [place] [address] 11/04/2023 2:00 PM EST Office Visit Hematology/Oncology [facility] [address] [facility] [place] [address] Adin Dow MD [address] [facility] [address] [place] [address] 12/09/2023 12:20 PM EST Office Visit Family Practice [facility] [address] [facility] [place] [address] Alex Melchor, DO [address] [facility] [place] [address] 10/23/2024 11:30 AM EST Office Visit Otolaryngology [facility] [address] [facility] [place] [address] Alexy Link, DO [address] [place] [address] 10/29/2024 11:15 AM EST Office Visit Dermatology [facility] [address] [facility] [address] [place] [address] Lyle Lowery MD [address] [facility] [place], [place] [address] Health Maintenance Due Date Last Done Comments [...] of this encounter Visit Diagnoses Diagnosis Acute ethmoidal sinusitis, recurrence not specified- Primary documented in this encounter Advance Directives Latest Code Status on File Code Status Date Activated Date Inactivated Comments None 06/07/2005 2:26 PM 06/07/2005 2:26 PM Care Teams Physician Ophthalmologist Relationship Specialty Start Date End Date Alex Melchor DO [address] [place] [address] PCP - General Family Medicine 12/17/19 documented as of this encounter
--- OUTSIDE RECORDS SUMMARY | 2024-02-09 11:49 | External Medical Summary ---
Author Name Unknown Address Unknown Organization K01:[facility] - [address] [place] [address] Laboratory Report Ordering Provider Test Date Status MELQUIADES SMITH 10/22/2023 11:31:35 Final Observation Date Value Abnormality Reference (Units ) Status Magnesium 10/22/2023 11:31:35 2.1 1.5-2.6 (m g/dL) Final Performing Location [facility] - [address] [place] [address]
--- OUTSIDE RECORDS SUMMARY | 2024-02-09 11:49 | External Medical Summary ---
Author Name Unknown Address Unknown Organization [facility] - [address] [place] [address] Laboratory Report Ordering Provider Test Date Status JOSE CASILLAS 10/22/2023 11:31:35 Final Observation Date Value Abnormality Reference (Units ) Status LDH 10/22/2023 11:31:35 222 <=250 (U/L ) Final Performing Location [facility] - [address] [place] [address]
--- OUTSIDE RECORDS SUMMARY | 2024-02-09 11:49 | External Medical Summary ---
Author Name Unknown Address Unknown Organization K01:[facility] - [address] [place] [address] Laboratory Report Ordering Provider Test Date Status MELQUIADES SMITH 10/22/2023 11:31:35 Final Observation Date Value Abnormality Reference (Units ) Status Vitamin B12 10/22/2023 11:31:35 1514 Above high normal 232-1245 (pg/mL) Final Performing Location [facility] - [address] [place] [address]
--- OUTSIDE RECORDS SUMMARY | 2024-02-09 11:50 | External Medical Summary | Summary of Care ---
Author Name Unknown Organization [facility] Address [address] [place] [facility] [place] [address] Phone [phone] Care Team Providers Care Finance Business Partner Name Role Phone Alex Melchor Primary Care Provider Reason for Visit * Reason Onset Date Comments Medication Administration 08/22/2023 Flu an d/or Pneumo Inj Encounter Details Date Type Department Care Team Description 08/22/2023 Immunization [facility] [address] [facility] [address] Need for prophylactic vaccination and inoculation against influenza* Allergies Active Allergy Reactions Severity Noted Date Comments Niacin Flushing Low 10/25/1997 Pseudoephedrine Hcl Other (Please comment) Low 05/18 Urinary Retention documented as of this encounter (statuses as of 08/22/2023) Medications Medication Sig Dispensed Refills Start Date [...] Nasal SolutionIndications :Chronic maxillary sinusitis Administer 1 [place] into nostril 2 times a day. 30 mL 12 03/08/2021 Active Additional Information Patient not taking.Reported on 04/25/2023 Ondansetron HCl 4 MG Oral Tablet (Zofran)Indications :Gastroesophageal reflux disease with esophagitis, unspecified whether hemorrhage Take 1 Tab by mouth every 6 hours as needed for Nausea. 60 Tab 3 08/30/2021 Active Fluticasone Propionate 50 MCG/ACT Nasal Suspension (Flonase)Indication s:Chronic rhinitis Administer into nostril 1 [place] in the morning. 48 g 5 04/12/2022 [...] MOUTH DAILY 90 Capsule 3 09/17/2022 Active Finasteride 5 MG Oral Tablet (Proscar) TAKE ONE TABLET BY MOUTH DAILY 90 Tablet 1 03/12/2023 Active Ibrutinib 420 MG Oral TabletIndications:C LL [...] before bedtime. 180 Tablet 3 05/08/2023 Active documented as of this encounter (statuses as of 08/22/2023) Active Problems Problem Noted Date Thrombocytopenia 04/25/2023 [...] as of this encounter (statuses as of 08/22/2023) Resolved Problems Problem Noted Date Resolved Date [...] as of this encounter (statuses as of 08/22/2023) Immunizations Name Administration Dates Next Due COVID-19 [...] on file documented as of this encounter Patient Instructions * Patient Instructions* Elsie Delong LPN - 08/22/2023 11:33 AM EDT ~~PATIENT INSTRUCTIONS FOR FLU SHOT~~ Possible side effects of influenza vaccine, (flu shot), are usually mild and include: 1. Soreness or redness at injection site 2. Low grade fever 3. Body aches You may use Tylenol/Acetaminophen as needed for these symptoms. LET YOUR DOCTOR KNOW IMMEDIATELY IF YOU HAVE DIFFICULTY BREATHING OR SWALLOWING, EXPERIENCE ITCHINGOF FEET OR HANDS, HAVE SWELLING OF EYES, FACE OR INSIDE OF NOSE. documented in this encounter Progress Notes * Elsie Delong LPN - 08/22/2023 11:32 AM EDT PRE - ADMINISTRATION DOCUMENTATION Are you experiencing any cold symptoms or fever? No Have you had Guillain-[place] Syndrome (an illness that causes paralysis) within the last 6 weeks? No Have you had the flu shot in the past? YES Have you ever had a reaction to the flu shot? No Elsie Delong LPN, 08/22/2023 11:32 AM Immunization Administration Documentation Time Out Procedure Performed: Yes Patient Identified (Ask Name/Date of ): Yes Does the patient have a fever greater than 101 degrees today? No Patient allergic to latex? No VFC Stock: No Immunization(s) verified: Yes, Immunization Name: Flu, VIS Sheet(s) given: Yes Verified Side and Site: Yes Verified Shot(s) with Parent(s)/Patient: Yes documented in this encounter Plan of Treatment Upcoming Encounters Date Type Specialty Care Team Description 10/22/2023 Office Visit Otolaryngology Alexy Link DO [address] [place] [address] 10/22/2023 Laboratory [facility] [place] [address] [place] [address] 10/23/2023 Pharmacy Pharmacy [facility], [facility] Hem/Onc [address] [place] [address] 10/24/2023 Office Visit Cardiology Cary Lee PA-C [address] [place] [address] 11/04/2023 Office Visit Hematology Oncology Adin Dow MD [address] [place] [address] 12/09/2023 Office Visit Family Medicine Alex Melchor DO [address] [place] [address] Health Maintenance Due Date Last Done Comments Alpha-1 Antitrypsin 1958 DTaP,Tdap,and Td Vaccines (2 - Td or Tdap) 12/15/2022 12/15/2012, 10/19/2004, 01/21/1997 COVID-19 Vaccine (4 - 2022- season) 2023 12/18/2021, 01/28/2021, 12/18/2020 [...] as of this encounter Visit Diagnoses Diagnosis Need for prophylactic vaccination and inoculation against influenza- Primary documented in this encounter Advance Directives Latest Code Status on File Code Status Date Activated Date Inactivated Comments None 06/07/2005 2:26 PM 06/07/2005 2:26 PM Care Teams Finance Business Partner Relationship Specialty Start Date End Date Alex Melchor DO [address] [place] [address] PCP - General Family Medicine 12/17/19 documented as of this encounter
[2024-02-09 12:44] LABS: Base Excess VBG 1.2 mEq/L; HCO3 VBG 27 mmol/L; Oxygen Saturation VBG 65.9 %; PCO2 VBG 47 mmHg (38-50); PO2 VBG 40 mmHg; pH VBG 7.37 (7.36-7.41)
[2024-02-09 12:56] LABS: Hematocrit (blood only) 43.1 % (42.0-52.0); Hemoglobin 13.9 g/dl (14.0-18.0); Mean Corpuscular Hemoglobin 26.9 pg (25.0-34.0); Mean Corpuscular Hgb Conc 32.3 g/dL (32.0-36.0); Mean Corpuscular Volume 83.4 fL (80.0-100.0); Mean Platelet Volume 11.1 fL (9.4-12.4); Platelet Count 90 K/uL (130-400); RDW Coefficient of Variation 13.7 % (11.5-14.5); Red Blood Count 5.17 M/uL (4.70-6.10); White Blood Count 7.07 K/ul (4.8-10.8)
[2024-02-09 13:03] LABS: Albumin Globulin Ratio 1.6 (0.9-2); Bilirubin,Total 1.3 mg/dl (0.2-1.0); Calcium 9.1 mg/dl (8.6-10.3); Creatinine Clr Calc Pharmacy 48.3 ml/min; Globulin 2.5 gm/dl (2.5-4.0); Magnesium 1.7 mg/dl (1.7-2.4); Potassium 4.1 mmol/L (3.5-5.1); Total Protein 6.5 gm/dl (6.0-8.3)
[2024-02-09 13:10] LABS: Troponin I High Sensitivity 33.6 pg/ml (0-20)
[2024-02-09 13:11] LABS: Basophils # (auto) 0.06 K/uL (0.00-0.20); Basophils % (auto) 0.8 %; Eosinophils # (auto) 0.07 K/uL (0.00-0.50); Immature Granulocytes # (auto) 0.04 K/uL (0.01-0.20); Immature Granulocytes % (auto) 0.6 %; Lymphocytes # (auto) 2.53 K/uL (1.20-3.40); Lymphocytes % (auto) 35.8 %; Monocytes # (auto) 1.15 K/uL (0.11-0.59); Monocytes % (auto) 16.3 %; Neutrophils # (auto) 3.22 K/uL (1.40-6.50); Neutrophils % (auto) 45.5 %
--- NOTE | 2024-02-09 13:19 | Emergency Department Note ---
Impression & Plan Chest congestion, Non-ST elevation [place] (NSTEMI), COVID-19 ED Provider Note HISTORY OF PRESENT ILLNESS: Patient is an 83-year-old male presenting with nasal congestion and a cough. Patient reports that he has been sick since August with recurrent episodes of sinus infections. He has been treated on amoxicillin and prednisone recurrently over the last few months. He states that his most recent bout with nasal congestion and cough started 7 to 10 days ago. He has not been on any current antibiotics or steroids. He denies any chest pain. He does report feeling intermittently short of breath. His cough is sometimes productive of a clear discharge. He denies any fevers. Denies any nausea or vomiting. His is sick with similar symptoms. ROS: as above PHYSICAL EXAM: Constitutional: Patient appears in no acute distress. HENT: Head: Normocephalic and atraumatic. Eyes: EOMI, PERRL Mouth/Throat: Mucous membranes moist. Neck: Trachea midline. Neck supple. Cardiovascular: Irregular rhythm. No murmurs, rubs or gallops. Intact distal pulses. Pulmonary/Chest: No respiratory distress. Breath sounds clear and equal bilaterally. No wheezes or rales Abdominal: Abdomen soft, no tenderness, rebound or guarding. Musculoskeletal: No edema, tenderness or deformity noted. Skin: Warm and dry. No rash, erythema, pallor or cyanosis Psychiatric: Appropriate mood and affect for situation. Neurological: Alert and keenly responsive. CN II-XII grossly intact, moving all extremities equally and fully. MDM: - Vitals signs stable. - History obtained via patient. History as above. - Chronic conditions affecting care: bifasicular block; CAD; CLL; aortic stenosis; BPH; HLD - Differential diagnoses include, but are not limited to: viral syndrome; ACS; pneumonia; CHF exacerbation; bronchitis - Order placed for continuous cardiac monitoring. At this time, monitor showed rate of 83 bpm with irregular rhythm, per my interpretation. - External medical records reviewed. Discharge summary dated 12/17/2019 was reviewed. Patient was admitted at that time for lumbar spinal stenosis with neurogenic claudication. - EKG interpreted by myself showed atrial fibrillation. Rate 76 bpm. QT 368. No acute ischemic changes. - Laboratory workup interpreted by myself showed normal WBC; stable electrolytes; elevated troponin (33.6); elevated BNP (178) - Repeat troponin down to 33.0 - CXR negative for pneumonia, per my interpretation. - VBG normal. - UA negative for infection - Viral respiratory panel positive for COVID-19. - No previous troponin to compare for the patient. He is not overtly complaining of chest pain but is complaining of coughing and chest congestion. - Discussion was had with case monitor about patient's case and need for admission - Hospitalist consulted for admission - Patient admitted to [facility] for further evaluation and management. ASSESSMENT AND PLAN: Diagnosis: congestion; NSTEMI; COVID-19 infection Plan: admit Past Med/Surg History Medical History Aortic stenosis Atrial fibrillation Bifascicular block BPH (benign prostatic hyperplasia) Carotid artery stenosis CLL (chronic lymphocytic leukemia) GERD (gastroesophageal reflux disease) Hearing deficit History of COVID-19 Hyperlipidemia Osteoarthritis Thrombocytopenia Surgical History History of appendectomy History of colonoscopy History of esophagogastroduodenoscopy (EGD) History of left cataract surgery History of lumbar fusion History of tooth extraction Hx of right cataract extraction Family History Father Family hx of colon cancer Social History Smoking Status: Former smoker Second Hand Exposure: No; Do You Dip or Chew Tobacco: No; Hx Alcohol Use: Yes Alcohol type: beer and wine Hx Substance Use: No Preferred Language: [place] Communication Ability: Effective Visual Impairment: No Limitations General Production Laborer Required: No Beliefs That Will Affect Care: None marital status: Current Living Situation: Spouse Current Living Situation Comment: lives with Feels Safe at Home: Yes Assistive Devices: Glasses, Hearing Aid - Right and Walker Allergies Allergies Allergy/AdvReac Type Severity Reaction Status Date / Time niacin Allergy Intermediate Rash, Verified 02/09/24 14:26 flushing pseudoephedrine AdvReac Mild Urinary Verified 02/09/24 14:26 retention Home Meds Home Medications Medication Instructions Recorded Confirmed ascorbic acid (vitamin C) 500 mg 1,000 mg PO QAM 12/01/19 02/09/24 tablet (Vitamin C) atorvastatin 20 mg tablet 20 mg PO PM 12/01/19 02/09/24 diphenhydramine-zinc acetate 1 1 applic topical QID PRN Itching 12/01/19 02/09/24 %-0.1 % topical cream (Benadryl Itch Stopping) finasteride 5 mg tablet 5 mg PO QAM 12/01/19 02/09/24 ketoconazole 2 % topical cream 1 applic topical DAILY PRN Itching 12/01/19 02/09/24 omeprazole 20 mg delayed 20 mg PO QAM 12/01/19 02/09/24 release,disintegrating tablet terazosin 10 mg capsule 10 mg PO QAM 12/01/19 02/09/24 fluticasone propionate 50 2 spray intranasal DAILY PRN 12/14/19 02/09/24 mcg/actuation nasal Congestion spray,suspension (Flonase Allergy Relief) ibrutinib 420 mg tablet (Imbruvica) 420 mg PO QAM 05/24/21 02/09/24 apixaban 5 mg tablet (Eliquis) 5 mg PO BID 02/09/24 02/09/24 Previous Rx's Medication Instructions Recorded albuterol sulfate 90 mcg/actuation 1 puffs inhalation QID PRN 12/17/19 aerosol inhaler shortness of breath or wheezing #8.5 grams amoxicillin 500 mg tablet 2,000 mg (4 x 500 mg) PO ONCE #4 07/09/23 tabs Results & Data (ED) Vital Signs Vital Signs - 24 hr 02/09/24 11:50 02/09/24 12:20 02/09/24 12:35 Temperature 36.0 C L Temperature Source Temporal Artery Scan Pulse Rate 101 H 87 85 Pulse Rate [Left Finger] Pulse Rhythm Regular Respiratory Rate 20 20 Respiratory Effort / Characteristics Non-Labored Spontaneous Respiratory Depth Normal Blood Pressure 135/78 Blood Pressure [Left Arm] Blood Pressure Mean 97 Blood Pressure Mean [Left Arm] Pulse Oximetry 96 98 Oxygen Delivery Method Room Air Room Air Sepsis Recent Fever Within 48 Hours No Sepsis New/Unexplained Change in Mental Status N/A Sepsis Action Taken by Nursing No Action Required 02/09/24 13:54 02/09/24 15:00 Temperature Temperature Source Pulse Rate Pulse Rate [Left Finger] 86 83 Pulse Rhythm Respiratory Rate 20 18 Respiratory Effort / Characteristics Respiratory Depth Blood Pressure Blood Pressure [Left Arm] 119/60 119/60 Blood Pressure Mean Blood Pressure Mean [Left Arm] 79 79 Pulse Oximetry 98 98 Oxygen Delivery Method Sepsis Recent Fever Within 48 Hours Sepsis New/Unexplained Change in Mental Status Sepsis Action Taken by Nursing Laboratory Data 02/09/24 12:25 02/09/24 12:25 Lab Results 02/09/24 02/09/24 02/09/24 Range/Units 12:25 13:51 14:23 WBC 7.07 (4.8-10.8) K/ul RBC 5.17 (4.70-6.10) M/uL Hgb 13.9 L (14.0-18.0) g/dl Hct 43.1 (42.0-52.0) % MCV 83.4 (80.0-100.0) fL MCH 26.9 (25.0-34.0) pg MCHC 32.3 (32.0-36.0) g/dL RDW Std Deviation 42.0 (36.4-46.3) fL RDW Coeff of Jama 13.7 (11.5-14.5) % Plt Count 90 L (130-400) K/uL MPV 11.1 (9.4-12.4) fL Immature Gran % (Auto) 0.6 % Neut % (Auto) 45.5 % Lymph % (Auto) 35.8 % [place] % (Auto) 16.3 % Eos % (Auto) 1.0 % Baso % (Auto) 0.8 % Neut # (Auto) 3.22 (1.40-6.50) K/uL Lymph # (Auto) 2.53 (1.20-3.40) K/uL [place] # (Auto) 1.15 H (0.11-0.59) K/uL Eos # (Auto) 0.07 (0.00-0.50) K/uL Baso # (Auto) 0.06 (0.00-0.20) K/uL Immature Gran # (Auto) 0.04 (0.01-0.20) K/uL PT 12.2 H (9.0-12.0) Seconds INR 1.1 (0.9-1.1) VBG pH 7.37 (7.36-7.41) VBG pCO2 47 (38-50) mmHg VBG pO2 40 mmHg VBG HCO3 27 mmol/L VBG O2 Saturation 65.9 % VBG Base Excess 1.2 mEq/L Sodium 138 (136-145) mmol/L Potassium 4.1 (3.5-5.1) mmol/L Chloride 105 (98-107) mmol/L Carbon Dioxide 27 (21-32) mmol/L Anion Gap 6 (3-11) BUN 16 (6-23) mg/dl Creatinine 1.07 (0.6-1.4) mg/dl Est Cr Clr Drug Dosing 48.3 ml/min Est GFR ( Amer) 73.0 ml/min Est GFR (Non-Af Amer) 63.0 ml/min BUN/Creatinine Ratio 15.0 (10-20) Glucose 107 H (70-99(Fasting)) mg/dl Calcium 9.1 (8.6-10.3) mg/dl Magnesium 1.7 (1.7-2.4) mg/dl Total Bilirubin 1.3 H (0.2-1.0) mg/dl AST 23 (13-39) U/L ALT 11 (7-52) U/L Alkaline Phosphatase 91 (34-104) U/L Troponin I High Sens 33.6 H 33.0 H (0-20) pg/ml B-Natriuretic Peptide 178 H (0-100) pg/ml Total Protein 6.5 (6.0-8.3) gm/dl Albumin 4.0 (3.4-5.0) gm/dl Globulin 2.5 (2.5-4.0) gm/dl Albumin/Globulin Ratio 1.6 (0.9-2) Urine Color Dark Yellow Urine Appearance Clear (Clear) Urine pH 5.5 (4.5-7.5) Ur Specific [place] 1.033 H (1.000-1.030) Urine Protein 1+ H (Negative) Urine Glucose (UA) Negative (Negative) Urine Ketones Trace H (Negative) Urine Blood Negative (Negative) Urine Nitrite Negative (Negative) Urine Bilirubin Negative (Negative) Urine Urobilinogen Negative (Negative) Ur Leukocyte Esterase Negative (Negative) Urine WBC (Auto) 1-5 (0-5) /hpf Urine RBC (Auto) 5-10 H (0-4) /hpf U Hyaline Cast (Auto) 1-5 (0-5) /lpf U Epithel Cells (Auto) 5-10 H (0-5) /lpf Urine Bacteria (Auto) Negative (Negative) Adenovirus (PCR) Not Detected (NotDetected) B. pertussis DNA (PCR) Not Detected (NotDetected) B.parapertussis DNA PCR Not Detected (NotDetected) C. pneumoniae DNA (PCR) Not Detected (NotDetected) Coronavirus OC43 (PCR) Not Detected (NotDetected) Coronavirus HKU1 (PCR) Not Detected (NotDetected) Coronavirus 229E (PCR) Not Detected (NotDetected) SARS-CoV-2 (PCR) DETECTED A (NotDetected) Coronavirus NL63 (PCR) Not Detected (NotDetected) Human Metapneumovir PCR Not Detected (NotDetected) Influenza Type A (PCR) Not Detected (NotDetected) Influenza Type B (PCR) Not Detected (NotDetected) M. pneumoniae (PCR) Not Detected (NotDetected) Parainfluenza 1 (PCR) Not Detected (NotDetected) Parainfluenza 2 (PCR) Not Detected (NotDetected) Parainfluenza 3 (PCR) Not Detected (NotDetected) Parainfluenza 4 (PCR) Not Detected (NotDetected) RSV (PCR) Not Detected (NotDetected) Entero/Rhino (PCR) Not Detected (NotDetected) Imaging Data Radiologist's Impression: Chest X-Ray 02/09/24 11:55 XR chest 1V portable CLINICAL HISTORY: Dyspnea TECHNIQUE: Single frontal radiograph of the chest was obtained. Comparison: Comparison is made to chest radiograph 08/08/2022 FINDINGS: No lines and tubes are seen. Cardiomegaly is noted. The lungs are clear. No evidence of pleural effusion or pneumothorax. IMPRESSION: No acute abnormalities and in particular no radiographic evidence of pneumonia. ACT 112: Negative or not required by law. Electronically signed by: Sheng Cadet M.D. 02/09/2024 1:46 PM Discharge Plan Visit Data Chief Complaint: Sinus Congestion/Pressure Stated Complaint: SINUS SYMPTOMS ED Provider: Isabel Mora Discharge Problem: Chest congestion, Non-ST elevation [place] (NSTEMI), COVID-19 Forms Stand Alone Forms: [employer] Prescriptions Prescriptions: No Action amoxicillin 500 mg tablet 2,000 mg PO ONCE Qty: 4 3RF Rx Instructions: 4 tabs 1 hour prior to procedure Imbruvica 420 mg tablet 420 mg PO QAM atorvastatin 20 mg Tablet 20 mg PO PM Benadryl Itch Stopping 1-0.1 % Cream 1 applic TOPICAL QID PRN (Reason: Itching) ascorbic acid (vitamin C) [Vitamin C] 500 mg Tablet 1,000 mg PO QAM ketoconazole 2 % Cream 1 applic TOPICAL DAILY PRN (Reason: Itching) terazosin 10 mg Capsule 10 mg PO QAM finasteride 5 mg Tablet 5 mg PO QAM omeprazole 20 mg Tablet,Disintegrat, Delay Rel 20 mg PO QAM fluticasone propionate [Flonase Allergy Relief] 50 mcg/actuation [place],Suspension 2 spray INTRANASAL DAILY PRN (Reason: Congestion) albuterol sulfate 90 mcg/actuation HFA aerosol inhaler 1 puffs INH QID PRN (Reason: shortness of breath or wheezing) Qty: 8.5 0RF Eliquis 5 mg tablet 5 mg PO BID Referrals Referrals: Alex Melchor DO [Primary Care Provider] -
[2024-02-09 13:20] LABS: INR 1.1 (0.9-1.1); Prothrombin Time 12.2 Seconds (9.0-12.0)
[2024-02-09 13:40] LABS: Adenovirus PCR Not Detected (NotDetected); Bordetella parapertussis PCR Not Detected (NotDetected); Bordetella pertussis PCR Not Detected (NotDetected); Chlamydia pneumoniae PCR Not Detected (NotDetected); Coronavirus 229E PCR Not Detected (NotDetected); Coronavirus CoV-2 (COVID19)PCR DETECTED (NotDetected); Coronavirus HKU1 PCR Not Detected (NotDetected); Coronavirus NL63 PCR Not Detected (NotDetected); Coronavirus OC43PCR Not Detected (NotDetected); Human Metapneumovirus PCR Not Detected (NotDetected); Influenza A PCR Not Detected (NotDetected); Influenza B PCR Not Detected (NotDetected); Mycoplasma pneumoniae PCR Not Detected (NotDetected); Parainfluenza Virus 1 PCR Not Detected (NotDetected); Parainfluenza Virus 2 PCR Not Detected (NotDetected); Parainfluenza Virus 3 PCR Not Detected (NotDetected); Parainfluenza Virus 4 PCR Not Detected (NotDetected); Respiratory Syncytial VirusPCR Not Detected (NotDetected); Rhinovirus/Enterovirus PCR Not Detected (NotDetected)
--- NOTE | 2024-02-09 13:47 | XRay Report ---
XR chest 1V portable CLINICAL HISTORY: Dyspnea TECHNIQUE: Single frontal radiograph of the chest was obtained. Comparison: Comparison is made to chest radiograph 08/08/2022 FINDINGS: No lines and tubes are seen. Cardiomegaly is noted. The lungs are clear. No evidence of pleural effus ion or pneumothorax. IMPRESSION: No acute abnormalities and in particular no radiographic evidence of pneumonia. ACT 112: Negative or not required by law. Electronically signed by: Sheng Cadet M.D. 02/09/2024 1:46 PM
[2024-02-09 14:36] LABS: Appearance Urine Clear (Clear); Bacteria Urine Automated Negative (Negative); Bilirubin Urine Negative (Negative); Blood Urine Negative (Negative); Color Urine Dark Yellow; Glucose Urine UA Negative (Negative); Ketones Urine Trace (Negative); Leukocyte Esterase Urine Negative (Negative); Nitrite Urine Negative (Negative); Protein Urine 1+ (Negative); Specific Gravity Urine 1.033 (1.000-1.030); Urobilinogen Urine Negative (Negative); pH Urine 5.5 (4.5-7.5)
--- NOTE | 2024-02-09 15:03 | Electrocardiogram Report ---
Test Reason : Blood Pressure : / mmHG Vent. Rate : 076 BPM Atrial Rate : 000 BPM P-R Int : 000 ms QRS Dur : 144 ms QT Int : 368 ms P-R-T Axes : 000 -72 -02 degrees QTc Int : 414 ms Atrial fibrillation Left axis deviation Right bundle branch block Minimal voltage criteria for LVH, may be normal variant ( R in aVL ) Old Inferior infarct Abnormal ECG When compared with ECG of 08-AUG-2022 13:47, Left anterior fascicular block is no longer Present Criteria for Inferior infarct is now Present Confirmed by Israel Engle ([id number]) on 02/09/2024 3:02:50 PM Referred By: REFERRED SELF Confirmed By:Israel Engle
--- NOTE | 2024-02-09 15:26 | History & Physical Report ---
Date of Service February 09, 2024 Assessment & Plan (1) COVID-19: (2) Chest congestion: (3) CLL (chronic lymphocytic leukemia): (4) Atrial fibrillation: (5) (HFpEF) heart failure with preserved ejection fraction: (6) BPH (benign prostatic hyperplasia): (7) GERD (gastroesophageal reflux disease): (8) Hyperlipidemia: Plan 83-year-old male with history of CLL on ibrutinib, atrial fibrillation, heart failure with preserved infection, BPH, GERD who presented to ED with chest congestion, cough for the past week and found to have COVID-19 infection [id number] is hemodynamically stable, not hypoxic, saturating well on room air and no evidence of pneumonia on imaging, however given his immunosuppressive status and risk for decompensation, will start on remdesivir for 3-day course. Will start on Decadron given his wheezing and congestion. Of note, patient has required a course of steroids over the past few months. Send sputum culture as able. Continue incentive spirometer, flutter valve, Mucinex, nebs Elevated troponin-likely demand ischemia from above. No chest pain, no concerning EKG changes. Will however trend troponin for completeness. BPH-stable, continue home finasteride and terazosin CLL-on ibrutinib-bring from home Atrial fibrillation, rate controlled-continue home metoprolol and Eliquis. Heart failure with preserved ejection fraction-volume status stable. BNP mildly elevated at 178. GERD-continue PPI Thrombocytopenia-mild, monitor. DVT prophylaxis- on full anticoagulation with Eliquis Code status-full code Disposition-admit to [facility] Updated family at bedside Time spent-approximately 87 minutes History of Present Illness Chief Complaint: SOB Primary Care Provider: Alex Melchor DO Patient is an 83 year old presents with sinus congestion and drainage, feeling lousy. He was seen as an outpatient since June 2023 and was treated with 2 antibiotics including Ceftin and Augmentin along with a recent steroid taper. He did test positive for COVID in August 2023 and over the last 7 days started to have worsening chest congestion. He is the primary health companion of his who has advanced dementia who also presented to the ED today. Patient does have sputum production that he describes as yellow and clear. In the ED no leukocytosis WBC 7.07; baseline 10-11 due to CLL. Electrolytes and kidney function all unremarkable. Troponin 33. ECG without ischemic change. BNP 178 and patient does have known heart failure. Additional past medical history includes atrial fibrillation (on Eliquis), CLL (diagnosed 2016 and follows with hematology), COPD, BPH, HFpEF, and GERD. CXR negative for acute cardiopulmonary disease. Most recent echo 03/2023 EF 55%, LV wall motion mild concentric hypertrophy, mild MR/TR. Patient denies fever, chills, SOB, chest pain, palpitations, abdominal pain or tenderness, urinary or bowel changes, visual or auditory changes, recent falls or trauma. Patient will be admitted for treatment of covid with remdesivir and steroids due to immunosuppression. Will trend troponin and obtain sputum culture along with nebulizer treatments 4 times daily plus every 2 as needed for expiratory wheezes. Will place on airborne isolation. And trend of troponin. Allergies Allergy/AdvReac Type Severity Reaction Status Date / Time niacin Allergy Intermediate Rash, Verified 02/09/24 14:26 flushing pseudoephedrine AdvReac Mild Urinary Verified 02/09/24 14:26 retention Home Medications Medication Instructions Recorded Confirmed Type ascorbic acid (vitamin C) 500 mg 1,000 mg PO QAM 12/01/19 02/09/24 History tablet (Vitamin C) atorvastatin 20 mg tablet 20 mg PO PM 12/01/19 02/09/24 History diphenhydramine-zinc acetate 1 1 applic topical QID PRN Itching 12/01/1902/08 History %-0.1 % topical cream (Benadryl Itch Stopping) finasteride 5 mg tablet 5 mg PO QAM 12/01/19 02/09/24 History ketoconazole 2 % topical cream 1 applic topical DAILY PRN Itching 12/01/19 02/09/24 History omeprazole 20 mg delayed 20 mg PO QAM 12/01/19 02/09/24 History release,disintegrating tablet terazosin 10 mg capsule 10 mg PO QAM 12/01/19 02/09/24 History fluticasone propionate 50 2 spray intranasal DAILY PRN 12/14/19 02/09/24 History mcg/actuation nasal Congestion spray,suspension (Flonase Allergy Relief) albuterol sulfate 90 mcg/actuation 1 puffs inhalation QID PRN 12/17/19 02/09/24 Rx aerosol inhaler shortness of breath or wheezing #8.5 grams ibrutinib 420 mg tablet (Imbruvica) 420 mg PO QAM 05/24/21 02/09/24 History amoxicillin 500 mg tablet 2,000 mg (4 x 500 mg) PO ONCE #4 07/09/23 02/09/24 Rx tabs apixaban 5 mg tablet (Eliquis) 5 mg PO BID 02/09/24 02/09/24 History metoprolol succinate 25 mg 25 mg PO DAILY 02/09/24 02/09/24 History tablet,extended release 24 hr Past Med/Surg History Medical History (HFpEF) heart failure with preserved ejection fraction Bifascicular block History of COVID-19 09/07/22 @ [facility]--completely asymptomatic, done prior to surgery 12/2020, tested d/t exposure, was asymptomatic Osteoarthritis Atrial fibrillation Persistent- on Eliquis Follows with Dr. Quinones Thrombocytopenia Chronic with fluctuating platelets in the low 100-120s per chart review Carotid artery stenosis Aortic stenosis Moderate aortic stenosis (BALTAZAR 0.95-0.98, MG 24.2mmhg) per 02/2022 echo CLL (chronic lymphocytic leukemia) under surveillance by oncology ([facility] [place]) Hearing deficit B/L [place] GERD (gastroesophageal reflux disease) controlled BPH (benign prostatic hyperplasia) Hyperlipidemia Surgical History Hx of right cataract extraction History of left cataract surgery History of lumbar fusion History of tooth extraction History of appendectomy History of esophagogastroduodenoscopy (EGD) History of colonoscopy Family History Father Family hx of colon cancer Social History Smoking Status: Former smoker Second Hand Exposure: No; Do You Dip or Chew Tobacco: No; Hx Alcohol Use: Yes Alcohol type: beer and wine Hx Substance Use: No Preferred Language: Marshallese Communication Ability: Effective Visual Impairment: No Limitations Sr Community Manager Required: No Beliefs That Will Affect Care: None marital status: Current Living Situation: Spouse Current Living Situation Comment: lives with Feels Safe at Home: Yes Assistive Devices: Glasses, Hearing Aid - Right and Walker Review of Systems Review of Systems: Neuro: (-) Falls, trauma, slurred speech HEENT: (-) [place], dizziness, dysphagia, visual or auditory changes CV: (-) CP, palpitations, swelling Resp: (-) SOB GI: (-) appetite changes, N/V/D, bowel changes : (-) urinary changes Skin: (-) rashes Psych: (-) anxiety, depression Physical Exam Physical Exam: Neuro: AAOx4, PERRLA, no aphagia, memory changes, CNII-XII grossly intact HEENT: head normocephalic, moist mucus membranes CV: S1/S2, (+) M (-) G/R, (-) edema, cap refill < 3 seconds Resp: On RA. Lungs expiratory wheezing GI: Abdomen S/NT/ND, Ax4 bowel sounds, (-) CVA tenderness Musculoskeletal: 5/5 B/L UE strength, 5/5 B/L LE strength. No gait disturbance Skin: (-) rashes , (-) erythema. Psych: euthymic mood Results & Data Results & Data Vital Signs (Past 12 Hours) Vital Signs Temp Pulse Pulse Resp BP BP Pulse Ox 02/09/24 15:00 83 18 119/60 98 02/09/24 13:54 86 20 119/60 98 02/09/24 12:35 85 02/09/24 12:20 87 20 98 02/09/24 11:50 36.0 C L 101 H 20 135/78 96 O2 Del Method 02/09/24 15:00 02/09/24 13:54 02/09/24 12:35 02/09/24 12:20 Room Air 02/09/24 11:50 Room Air Laboratory Results Short CBC 02/09/24 Range/Units 12:25 WBC 7.07 (4.8-10.8) K/ul Hgb 13.9 L (14.0-18.0) g/dl Hct 43.1 (42.0-52.0) % Plt Count 90 L (130-400) K/uL BMP 02/09/24 12:25 Sodium 138 Potassium 4.1 Chloride 105 Carbon Dioxide 27 BUN 16 Creatinine 1.07 Glucose 107 H Calcium 9.1 Liver Function 02/09/24 Range/Units 12:25 Total Bilirubin 1.3 H (0.2-1.0) mg/dl AST 23 (13-39) U/L ALT 11 (7-52) U/L Alkaline Phosphatase 91 (34-104) U/L Albumin 4.0 (3.4-5.0) gm/dl Urine 02/09/24 Range/Units 13:51 Urine Color Dark Yellow Urine Appearance Clear (Clear) Urine pH 5.5 (4.5-7.5) Ur Specific [place] 1.033 H (1.000-1.030) Urine Protein 1+ H (Negative) Urine Glucose (UA) Negative (Negative) Diagnostic Findings Chest X-Ray 02/09/24 11:55 XR chest 1V portable CLINICAL HISTORY: Dyspnea TECHNIQUE: Single frontal radiograph of the chest was obtained. Comparison: Comparison is made to chest radiograph 08/08/2022 FINDINGS: No lines and tubes are seen. Cardiomegaly is noted. The lungs are clear. No evidence of pleural effusion or pneumothorax. IMPRESSION: No acute abnormalities and in particular no radiographic evidence of pneumonia. ACT 112: Negative or not required by law. Electronically signed by: Sheng Cadet M.D. 02/09/2024 1:46 PM Code Status & VTE Plan Code Status Full code in the event of cardiac or respiratory arrest Supervising Physician Co-Signing Physician Notes Patient was seen and examined with Amanda GARAY at bedside in presence of family. Chart reviewed. Case discussed with her and agree with the documentation above with regards to HPI, PE and A/P; and I have made the changes wherever necessary.
[2024-02-09] MEDS ORDERED: ONDANSETRON INJ 2 MG/ML 2 ML VIAL IV PRN (16:00)
[2024-02-09] MEDS ORDERED: ALUMINUM/MAGNESIUM SUSP 30 ML UDC PO PRN (16:00)
[2024-02-09] MEDS ORDERED: MAGNESIUM HYDROXIDE SUSP 30 ML UDC PO PRN (16:00)
[2024-02-09] MEDS ORDERED: POLYETHYLENE (MIRALAX) 17 GM PACK PO PRN (16:00)
[2024-02-09] MEDS ORDERED: ACETAMINOPHEN 325 MG TAB PO PRN (16:00)
[2024-02-09] MEDS ORDERED: FLUTICASONE PROPIONATE NA SPR 16 GM BTL PRN (16:06)
[2024-02-09] MEDS: REMDESIVIR 200 MG in SODIUM CHLORIDE 0.9% 210 ML IV STA (17:09)
[2024-02-09] MEDS: ALBUT/IPRATROP 3MG/0.5MG NEB 3 ML VIAL ONE (19:00)
[2024-02-09] MEDS: dexAMETHasone 6 MG in SYRINGE 0 ML IV SCH (19:35)
[2024-02-09] MEDS: APIXABAN 5 MG TABLET PO SCH (20:40)
[2024-02-09] MEDS: guaiFENesin 600 MG TABCR PO SCH (20:40)
[2024-02-09] MEDS: ATORVASTATIN 20 MG TAB PO SCH (20:40)
[2024-02-09] MEDS: ALBUT/IPRATROP 3MG/0.5MG NEB 3 ML VIAL NEB SCH (20:44)
[2024-02-09] MEDS: LORazepam 0.5 MG TAB PO STA (23:36)
[2024-02-10 06:49] LABS: Hematocrit (blood only) 40.1 % (42.0-52.0); Hemoglobin 13.4 g/dl (14.0-18.0); Mean Corpuscular Hemoglobin 27.1 pg (25.0-34.0); Mean Corpuscular Hgb Conc 33.4 g/dL (32.0-36.0); Mean Platelet Volume 10.9 fL (9.4-12.4); Platelet Count 85 K/uL (130-400); RDW Coefficient of Variation 13.6 % (11.5-14.5); RDW Standard Deviation 39.9 fL (36.4-46.3); Red Blood Count 4.95 M/uL (4.70-6.10); White Blood Count 5.06 K/ul (4.8-10.8)
[2024-02-10 07:12] LABS: Albumin Globulin Ratio 1.6 (0.9-2); Albumin Level 3.7 gm/dl (3.4-5.0); BUN Creatinine Ratio 16.1 (10-20); Bilirubin,Total 0.9 mg/dl (0.2-1.0); Calcium 8.7 mg/dl (8.6-10.3); Est GFR (African American) 91.2 ml/min; Est GFR (Non-African American) 78.7 ml/min; Globulin 2.3 gm/dl (2.5-4.0); Magnesium 1.8 mg/dl (1.7-2.4); Phosphorus 3.9 mg/dl (2.5-4.9); Potassium 4.1 mmol/L (3.5-5.1)
[2024-02-10] MEDS: METOPROLOL SUCC 25MG EXT REL TAB PO SCH (08:32)
[2024-02-10] MEDS: TERAZOSIN HCL 5 MG CAP PO SCH (08:32)
[2024-02-10] MEDS: FINASTERIDE 5 MG TAB PO SCH (08:32)
[2024-02-10] MEDS: PANTOprazole 40 MG TAB PO SCH (08:32)
[2024-02-10] MEDS: SODIUM CHLOR 7% 4 ML NEB NEB SCH (11:16)
--- NOTE | 2024-02-10 11:21 | XRay Report ---
LEFT FOOT 2 VIEWS CLINICAL HISTORY: Left foot pain and numbness. FINDINGS: AP and lateral views of the left foot are obtained. No prior studies are available for page [id number] at the time of dictation. The skeletal structures are osteopenic. No fracture is seen. There i s mild hallux valgus with moderate osteoarthritic change at the first metatarsophalangeal joint. Mild er degenerative change is seen throughout the remainder of the foot. There is a large plantar heel sp ur. The overlying soft tissues are within normal limits. Atherosclerotic calcification is observed in the regional arteries. IMPRESSION: 1. No acute bony abnormality is identified. 2. Osteopenia with hallux valgus, degenerative change, and a large heel spur as above. Electronically signed by: Narciso Delgadillo M.D. 02/10/2024 11:20 AM
--- NOTE | 2024-02-10 11:46 | XRay Report ---
XR foot RT 2V CLINICAL HISTORY: MTP joint numbness COMPARISON: None FINDINGS: Alignment of the right foot is anatomic. There is no acute fracture. Tarsometatarsal joint s are intact. Moderate vascular calcification is noted. There is mild to moderate osteoarthritis of t he right first metatarsophalangeal joint. Plantar calcaneal spur is present. IMPRESSION: 1. No fractures within the right foot. 2. Mild to moderate right first MTP joint osteoarthritis. ACT 112: Negative or not required by law. Electronically signed by: Cesar Shelby M.D. 02/10/2024 11:45 AM
[2024-02-10] MEDS: guaiFENesin 600 MG TABCR PO SCH (11:51)
[2024-02-10] MEDS: AMOXICILLIN/CLAVULANATE 875 MG TAB PO SCH (12:50)
--- NOTE | 2024-02-10 15:41 | Hospitalist Progress Note ---
Date of Service February 10, 2024 Assessment & Plan (1) COVID-19: (2) Chest congestion: (3) CLL (chronic lymphocytic leukemia): (4) Atrial fibrillation: (5) (HFpEF) heart failure with preserved ejection fraction: (6) BPH (benign prostatic hyperplasia): (7) GERD (gastroesophageal reflux disease): (8) Hyperlipidemia: Plan per admitting service notes with addendum: 83-year-old male with history of CLL on ibrutinib, atrial fibrillation, heart failure with preserved infection, BPH, GERD who presented to ED with chest congestion, cough for the past week and found to have COVID-19 infection Acute bronchitis secondary to COVID-19 infection Possible acute on chronic bacterial sinusitis [id number] is hemodynamically stable, not hypoxic, saturating well on room air and no evidence of pneumonia on imaging, however given his immunosuppressive status and risk for decompensation, will start on remdesivir for 3-day course. Will start on Decadron given his wheezing and congestion. Of note, patient has required a course of steroids over the past few months. Send sputum culture as able. Continue incentive spirometer, flutter valve, Mucinex, nebs 02/09 Remains on room air, O2 sats above 90% Blood pressure on the lower end Chest x-ray clear Continue remdesivir, Decadron day #2 Monitor liver panel and renal function Continue nebs with hypertonic saline Continue Mucinex twice daily Flutter valve, incentive spirometer Continue Eliquis for DVT prophylaxis Repeat chest x-ray tomorrow Add Augmentin twice daily for possible bacterial sinusitis Add IV fluids Monitor closely Bilateral MTP joint numbness -- Foot x-ray ordered Podiatry service consultation ordered Elevated troponin-likely demand ischemia from above. No chest pain, no concerning EKG changes. Will however trend troponin for completeness. -- No significant increase in troponin, remained in the 30s -- No cardiac symptoms BPH- stable, continue home finasteride and terazosin CLL- on ibrutinib-bring from home Atrial fibrillation, rate controlled-continue home metoprolol and Eliquis. Heart failure with preserved ejection fraction-volume status stable. BNP mildly elevated at 178. -- Gentle IV fluids ordered GERD-continue PPI Thrombocytopenia-mild, monitor. DVT prophylaxis- on full anticoagulation with Eliquis Code status-full code Disposition-admit to [facility] plan of care discussed with patient and daughter at the bedside in detail and at length all questions answered they are understanding, agreeable, comfortable with the plan of care Admission and Anticipated Discharge Date Admission Date: February 09, 2024 Subjective ff up for COVID-19 infection, etc. Seen resting in bed, comfortable States he feels about the same as yesterday Still having nasal congestion and drainage-clear thick mucus Associated with some frontal headache and maxillary sinus discomfort No sore throat Has intermittent cough but denies shortness of breath or chest pain No fevers or chills Reports numbness over the bilateral MTP joint No other new symptoms Review of Systems Review of Systems: all noted and negative except for above Physical Exam Physical Exam: General- oriented x 3, not in distress, speaks in sentences with no effort or accessory muscle use Face-positive mild tenderness over the left maxillary sinus area Eyes- anicteric Neck- no JVD Lungs-mild bilateral crackles with intermittent wheezing Good air entry bilaterally Heart- normal rate, regular rhythm; no murmurs Abdomen- normal bowel sounds, nondistended, soft, nontender Extremities- no pretibial edema, no calf tenderness Bilateral MTP-callus noted, no erythema/warmth/tenderness/edema Right big toe-skin changes consistent with possible fungal infection Neuro- alert, oriented x 3; no gross focal neurologic deficits Skin- warm & dry Results & Data Results & Data Vital Signs (Past 12 Hours) Vital Signs Temp Pulse Pulse Resp BP Pulse Ox O2 Del Method 02/10/24 12:00 36.4 C L 94 H 18 87/50 L 93 Room Air 02/10/24 11:16 16 94 Room Air 02/10/24 08:45 74 02/10/24 07:46 77 15 95 Room Air 02/10/24 07:33 36.4 C L 72 18 103/69 94 Room Air 02/10/24 07:27 Room Air 02/10/24 03:39 36.4 C L 87 18 112/67 96 Room Air all noted and reviewed including below
[2024-02-10] MEDS: REMDESIVIR 100 MG in SODIUM CHLORIDE 0.9% 230 ML IV SCH (20:26)
[2024-02-10] MEDS: MELATONIN 3 MG TAB PO ONE (20:52)
[2024-02-11] MEDS: ADVANCED PROBIOTIC 625 MG CAPSULE PO SCH (08:51)
--- NOTE | 2024-02-11 10:15 | XRay Report ---
XR chest 1V portable CLINICAL HISTORY: ff up covid infection COMPARISON STUDY: Chest radiograph February 09, 2024. FINDINGS: Lung volumes are normal. Lungs are clear. There is no pneumothorax or pleural effusion. Car diomegaly is unchanged. Mediastinal contours are normal. There is no evidence for pulmonary edema. IMPRESSION: No acute cardiopulmonary findings. ACT 112: Negative or not required by law. Electronically signed by: Cesar Shelby M.D. 02/11/2024 10:14 AM
[2024-02-11] MEDS: COUGH DROP (SUGAR FREE) LOZ 24 LOZ/1 BOX BUCCAL PRN (10:56)
[2024-02-11] MEDS: IBRUTINIB PO SCH (11:22)
--- NOTE | 2024-02-11 14:35 | Hospitalist Progress Note ---
Date of Service February 11, 2024 Assessment & Plan (1) COVID-19: (2) Chest congestion: (3) CLL (chronic lymphocytic leukemia): (4) Atrial fibrillation: (5) (HFpEF) heart failure with preserved ejection fraction: (6) BPH (benign prostatic hyperplasia): (7) GERD (gastroesophageal reflux disease): (8) Hyperlipidemia: Plan per admitting service notes with addendum: 83-year-old male with history of CLL on ibrutinib, atrial fibrillation, heart failure with preserved infection, BPH, GERD who presented to ED with chest congestion, cough for the past week and found to have COVID-19 infection Acute bronchitis secondary to COVID-19 infection Possible acute on chronic bacterial sinusitis [id number] is hemodynamically stable, not hypoxic, saturating well on room air and no evidence of pneumonia on imaging, however given his immunosuppressive status and risk for decompensation, will start on remdesivir for 3-day course. Will start on Decadron given his wheezing and congestion. Of note, patient has required a course of steroids over the past few months. Send sputum culture as able. Continue incentive spirometer, flutter valve, Mucinex, nebs 3/ Clinically improving Remains on room air, saturating 93% Repeat chest x-ray: No pneumonia Continue remdesivir, Decadron day #3 Renal function, liver panel okay Continue nebs and hypertonic saline, Mucinex, flutter valve, incentive spirometer Already on Eliquis for DVT prophylaxis On Augmentin day #2 for possible acute on chronic mitral sinusitis Bilateral MTP joint numbness -- Foot x-ray ordered: Osteoarthritis -- Outpatient podiatry evaluation Elevated troponin-likely demand ischemia from above. No chest pain, no concerning EKG changes. Will however trend troponin for completeness. -- No significant increase in troponin, remained in the 30s -- No cardiac symptoms BPH- stable, continue home finasteride and terazosin CLL- on ibrutinib-bring from home Atrial fibrillation, rate controlled-continue home metoprolol and Eliquis. Heart failure with preserved ejection fraction-volume status stable. BNP mildly elevated at 178. -- Gentle IV fluids ordered GERD-continue PPI Thrombocytopenia-mild, monitor. DVT prophylaxis- on full anticoagulation with Eliquis Code status-full code Disposition-lives at home with family PT and OT evaluation plan of care discussed with patient and son at the bedside in detail and at length all questions answered they are understanding, agreeable, comfortable with the plan of care Admission and Anticipated Discharge Date Admission Date: February 09, 2024 Subjective Follow-up for COVID-19 infection, acute bronchitis, etc. Seen sitting up in bed, comfortable, not in distress States he feels improved today compared to yesterday Sinus congestion is improving Less nasal drainage Having some throat itchiness No shortness of breath, no cough No chest pain, leg pain No diarrhea Appetite is fair No other symptoms Review of Systems Review of Systems: all noted and negative except for above Physical Exam Physical Exam: General- oriented x 3, not in distress, speaks in sentences with no effort or accessory muscle use Eyes- anicteric Neck- no JVD Lungs- clear breath sounds bilaterally, no crackles/wheezing Heart- normal rate, regular rhythm; no murmurs Abdomen- normal bowel sounds, nondistended, soft, nontender Extremities- no pretibial edema, no calf tenderness Neuro- alert, oriented x 3; no gross focal neurologic deficits Skin- warm & dry Results & Data Results & Data Vital Signs (Past 12 Hours) Vital Signs Temp Pulse Pulse Resp BP Pulse Ox O2 Del Method 02/11/24 11:51 36.4 C L 81 18 111/65 93 Room Air 02/11/24 11:18 72 16 97 Room Air 02/11/24 09:12 Room Air 02/11/24 07:44 84 02/11/24 07:43 79 16 95 Room Air 02/11/24 07:34 36.6 C 72 20 101/55 L 94 Room Air 02/11/24 03:28 36.8 C 75 17 117/70 96 Room Air all noted and reviewed including below
[2024-02-11] MEDS: MELATONIN 3 MG TAB PO PRN (21:03)
[2024-02-11] MEDS ORDERED: CHLORASEPTIC (PHENOL) 1.4% SOLN 180 ML BTL MT PRN (21:49)
--- NOTE | 2024-02-12 14:47 | Discharge Summary ---
Date of Service February 12, 2024 Admission HPI Per Admitting Provider Patient is an 83 year old presents with sinus congestion and drainage, feeling lousy. He was seen as an outpatient since June 2023 and was treated with 2 antibiotics including Ceftin and Augmentin along with a recent steroid taper. He did test positive for COVID in August 2023 and over the last 7 days started to have worsening chest congestion. 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 Patient does have sputum production that he describes as yellow and clear. In the ED no leukocytosis WBC 7.07; baseline 10-11 due to CLL. Electrolytes and kidney function all unremarkable. Troponin 33. ECG without ischemic change. BNP 178 and patient does have known heart failure. Additional past medical history includes atrial fibrillation (on Eliquis), CLL (diagnosed 2016 and follows with hematology), COPD, BPH, HFpEF, and GERD. CXR negative for acute cardiopulmonary disease. Most recent echo 03/2023 EF 55%, LV wall motion mild concentric hypertrophy, mild MR/TR. Patient denies fever, chills, SOB, chest pain, palpitations, abdominal pain or tenderness, urinary or bowel changes, visual or auditory changes, recent falls or trauma. Patient will be admitted for treatment of covid with remdesivir and steroids due to immunosuppression. Will trend troponin and obtain sputum culture along with nebulizer treatments 4 times daily plus every 2 as needed for expiratory wheezes. Will place on airborne isolation. And trend of troponin. Admission Exam Per Admitting Provider Neuro: AAOx4, PERRLA, no aphagia, memory changes, CNII-XII grossly intact HEENT: head normocephalic, moist mucus membranes CV: S1/S2, (+) M (-) G/R, (-) edema, cap refill < 3 seconds Resp: On RA. Lungs expiratory wheezing GI: Abdomen S/NT/ND, Ax4 bowel sounds, (-) CVA tenderness Musculoskeletal: 5/5 B/L UE strength, 5/5 B/L LE strength. No gait disturbance Skin: (-) rashes , (-) erythema. Psych: euthymic mood Principal Diagnosis COVID-19 infection Discharge Exam Constitutional: WD/WN, vitals as above, NAD, sitting up in bed, pleasant, conversing easily Respiratory: normal respiratory effort, lungs clear to auscultation, no wheeze, rales, rhonchi. Normal insp/exp effort, no accessory muscle use Cardiovascular: RRR, no murmur, no edema Vessels: no JVD or carotid bruit Chest: normal inspection of chest Abdomen: normal bowel sounds, soft, nontender, no hepatosplenomegaly Musculoskeletal: no cyanosis or clubbing, extremities motor strength 5/5 Skin: no rashes, warm and dry normal turgor Neurologic: PERRL, EOMI, accommodation nl, no face palsy, no dysarthria CN's II- XI intact bilaterally and moves all extremities Psychiatric: A+Ox3, euthymic affect Discharge Data Allergies Allergy/AdvReac Type Severity Reaction Status Date / Time niacin Allergy Intermediate Rash, Verified 02/09/24 14:26 flushing pseudoephedrine AdvReac Mild Urinary Verified 02/09/24 14:26 retention Consultations 02/09/24 15:19 ED Decision to Admit Stat 02/10/24 10:46 Consult Podiatry Routine Hospital Course (1) COVID-19: (2) Chest congestion: (3) CLL (chronic lymphocytic leukemia): (4) Atrial fibrillation: (5) (HFpEF) heart failure with preserved ejection fraction: (6) BPH (benign prostatic hyperplasia): (7) GERD (gastroesophageal reflux disease): (8) Hyperlipidemia: Plan 83-year-old male with history of CLL on ibrutinib, atrial fibrillation, heart failure with preserved infection, BPH, GERD who presented to ED with chest congestion, cough for the past week and found to have COVID-19 infection Chest x-ray on admission did not show pneumonia He was hemodynamically stable and saturating well in room air Patient was started on remdesivir and Decadron Patient reported improvement in the symptoms. Patient was prescribed Augmentin for total of 5 days for sinusitis. Patient was discharged home with daughter; instructions given to follow-up with PCP. Please note the above document was generated using voice recognition software. It may contain grammatical, syntax or spelling errors. Any formal questions or concerns about the content, text or information contained within the body of this dictation should be directly addressed to the provider for clarification Total Time Total Time Spent Total Time Spent (In Minutes): 35 Total Time Includes: Examination of the Patient, Discharge Planning, Medication Reconciliation, Communication With Other Providers and Other Discharge Plan Discharge Items Patient Disposition: Home - Self-Care Reason For Visit: COVID +, CHEST CONGESTION Discharge Diagnosis: COVID-19 infection Sinusitis Activity: Resume your previous activity Non-emergency contact: Primary Care Provider Call non-emergency contact if: you have any medication questions and your symptoms worsen Follow-up/Referrals: Alex Melchor DO [Primary Care Provider] - Diet: Regular Addtl Attending Provider Instructions: You were admitted to the hospital due to COVID-19 infection. Chest x-ray was done which did not show any pneumonia. You are prescribed Augmentin to be taken twice daily for 3 more days for sinusitis. An appointment with your primary care doctor will be set up. Please follow-up with them. Pending Studies at Discharge: No Stand-Alone Forms: My [facility] [email or web address], Smoking Cessation Medications and DC Order Prescriptions: New amoxicillin-pot clavulanate 875-125 mg Tablet 1 tab PO Q12 3 Days Qty: 6 0RF Continued amoxicillin 500 mg tablet 2,000 mg PO ONCE Qty: 4 3RF Rx Instructions: 4 tabs 1 hour prior to procedure Imbruvica 420 mg tablet 420 mg PO QAM atorvastatin 20 mg Tablet 20 mg PO PM Benadryl Itch Stopping 1-0.1 % Cream 1 applic TOPICAL QID PRN (Reason: Itching) ascorbic acid (vitamin C) [Vitamin C] 500 mg Tablet 1,000 mg PO QAM ketoconazole 2 % Cream 1 applic TOPICAL DAILY PRN (Reason: Itching) terazosin 10 mg Capsule 10 mg PO QAM finasteride 5 mg Tablet 5 mg PO QAM omeprazole 20 mg Tablet,Disintegrat, Delay Rel 20 mg PO QAM fluticasone propionate [Flonase Allergy Relief] 50 mcg/actuation [place],Suspension 2 spray INTRANASAL DAILY PRN (Reason: Congestion) albuterol sulfate 90 mcg/actuation HFA aerosol inhaler 1 puffs INH QID PRN (Reason: shortness of breath or wheezing) Qty: 8.5 0RF Eliquis 5 mg tablet 5 mg PO BID metoprolol succinate 25 mg tablet extended release 24 hr 25 mg PO DAILY Discharge Orders: Discharge Order (Routine); Ordered 02/12/24 Ordered By: Hung Mas/Other Patient Handouts: COVID-19 Home Care, Amoxicillin/Clavulanate Oral Tablet Admission Data Admit Date/Time: 02/09/24 15:54 Attending Provider: Hung Meza Admit Provider: Brayan London Primary Care Provider: Alex Melchor Other Providers: Brayan London; Raymon Gutierrez Other Interventions: Discharge Summary Assessment (RN) Last Done: 02/12/24 12:13
== END 2024-02-12 13:25 | disposition home or self-care (01) | DRG 178 ==
LOC: ED 11:45 → EDINP 15:54 → SUATTDRO 15:54 → 2N 21:35